=== PATIENT | male | born 1960 | race Caucasian/White ===

== ENCOUNTER 2024-09-25 07:27 | Day surgery (SDC) | payer OTHER, SELFPAY ==
[2024-09-25] MEDS: LIDOCAINE 2% JELLY 10 ML UR (08:45)
[2024-09-25 08:58] VITALS: BP 140/70; BP 158/73; PULSE 79; PULSE 80; O2SAT 98
--- NOTE | 2024-09-25 08:58 | P.URON_ITS ---
Urology Surgery Operative Note Operative Note Procedure Date: 09/25/24 Time Out Performed: yes Pre-op Diagnosis: BPH with LUTS and recurrent prostatitis Post-op Diagnosis: same as pre-op Procedures performed: 1. Cystoscopy. Anesthesia: local Primary Surgeon: Ti Mac Complications: None Estimated blood loss (mL): 0 Findings: 1. Long obstructing lateral lobes. 2. High-grade bladder damage. 3. 1 cm papillary bladder lesion on the anterior right bladder wall surface with accompanying spoke will vascular pattern. Specimens: None Drains: None Indications for Procedures: This gentleman has BPH with LUTS and recurrent prostatitis despite max meds in the form of dutasteride and Flomax. His postvoid residual is elevated near 200 cc. He now presents for cystoscopy. He has signed an informed consent Detailed description of Procedure: The patient was kept on the [place] bed and brought into the endoscopy suite. He was in the supine position. Timeout was done by all parties in the room. Genitalia were sterilely prepped and draped in the usual fashion. 2% lidocaine gel was passed per urethra. I started by passing a flexible cystoscope per urethra and into the bladder. The anterior urethra was normal. The prostatic urethra revealed bilobar obstruction. The lateral lobes were long. Panendoscopy in the bladder revealed very high-grade trabeculation with diffuse open diverticuli. On the anterior right lateral wall there was a papillary neoplasm about 1 cm in size. This did not appear as a classic TCC lesion. There was a spoke we will vascular pattern accompanying the lesion. The scope was retroflexed and no new findings were noted. The scope was then removed. Plan we will get him scheduled for cystoscopy, TURBT and TURP under general.
== END 2024-09-25 08:58 | disposition home or self-care (01) ==
PROVIDERS: PCP Family Medicine; Visit Provider Urology
PROC: (CPT 52000; principal; 2024-09-25 08:15)
DX: N40.1 Benign prostatic hyperplasia with lower urinary tract symptoms (principal); I10 Essential (primary) hypertension; E78.5 Hyperlipidemia, unspecified; Z80.42 Family history of malignant neoplasm of prostate; Z80.52 Family history of malignant neoplasm of bladder; N41.9 Inflammatory disease of prostate, unspecified; N32.89 Other specified disorders of bladder; D41.4 Neoplasm of uncertain behavior of bladder
CPT/HCPCS: 52000

== ENCOUNTER 2024-10-11 14:20 | Outpatient (OUT) | payer OTHER, SELFPAY ==
--- NOTE | 2024-10-11 14:25 | XR_ITS ---
The [address] [address] Patient Name: LANA CUELLAR MRN: [id number] date: 1960 Sex: M Assigned Patient Location: [facility] Current Patient Location: [facility] Accession/Order Number: [id number] Exam Date: 10/11/2024 15:05 Report Date: 10/11/2024 15:14 At the request of: GABRIEL FONSECA Procedure: XR chest 2V EXAM: XR chest 2V HISTORY: Preop exam COMPARISON: None. TECHNIQUE: Upright PA and lateral chest X FINDINGS: The heart is not enlarged and the vasculature is not distended. No acute infiltrate, effusion or pneumothorax is identified. The osseous structures are grossly intact. XR/XR chest 2V IMPRESSION: No acute infiltrate or evidence of cardiac decompensation. Electronically authenticated by: CALEB BABIN Date: 10/11/2024 15:14
--- NOTE | 2024-10-11 14:25 | ECG_ITS ---
[facility] Test Date: 2024-10-11 Pat Name: LANA CUELLAR Department: Room: - Gender: Male Certified Phlebotomy Technician: : 1960 Requested By: GABRIEL FONSECA Order Number: [id number] Reading MD: FREYA CORONADO Measurements Intervals Gabriels Rate: 74 P: 62 MD: 181 QRS: 58 QRSD: 81 T: 55 QT: 377 QTc: 418 Interpretive Statements SINUS RHYTHM Nonspecific ST/T wave changes No previous ECG available for comparison Electronically Signed On 10-11-2024 17:43:53 EST by FREYA CORONADO
--- NOTE | 2024-10-11 14:59 | P.GSHP_ITS ---
History of Present Illness History of Present Illness Chief complaint: Bladder tumor, BPH with Obstruction Narrative: Mr. Valdemar Prado is a 64 year old male presents to presurgical testing reports that he had some malodorous urine and pain and burning with urination had continued urinary symptoms after this. Patient was evaluated on July [address] Mac and was diagnosed with prostatitis, BPH and urinary obstruction and an elevated PSA with a family history of prostate cancer in his father. He is scheduled for cystoscopy, TURBT, TURP this procedure is scheduled with Dr. Mac on October 26, 2024. Review of Systems ROS Narrative REVIEW OF SYSTEMS: Negative except as stated in HPI, ten or more systems reviewed. Constitutional: No fever, chills, weakness ENT: No sore throat or epistaxis Cardiovascular: No edema, chest pain, palpitations, or activity intolerance Respiratory: No shortness of breath, cough, or wheezing Musculoskeletal: No joint pain or swelling Gastrointestinal: No abdominal pain, constipation, diarrhea, or vomiting Genitourinary: Reports history malodorous urine and nocturia Neurological: No numbness, tingling, weakness, or headache Psychiatric: No mood changes PFSH PFSH Medical History (Updated 10/11/24 @ 15:07 by Jojo Martinez) GERD (gastroesophageal reflux disease) ?K21.9 - Gastro-esophageal reflux disease without esophagitis (ICD-10) Elevated blood sugar ?R73.9 - Hyperglycemia, unspecified (ICD-10) Panic attack ?F41.0 - Panic disorder [episodic paroxysmal anxiety] (ICD-10) Nocturia ?R35.1 - Nocturia (ICD-10) Prostatitis ?N41.9 - Inflammatory disease of prostate, unspecified (ICD-10) Hiatal hernia ?K44.9 - Diaphragmatic hernia without obstruction or gangrene (ICD-10) Elevated PSA ?R97.20 - Elevated prostate specific antigen [PSA] (ICD-10) High cholesterol ?E78.00 - Pure hypercholesterolemia, unspecified (ICD-10) Depression ?F32.A - Depression, unspecified (ICD-10) Smoker ?F17.200 - Nicotine dependence, unspecified, uncomplicated (ICD-10) Hypertension ?I10 - Essential (primary) hypertension (ICD-10) 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 - Acosta's esophagus without dysplasia (ICD-10) Surgical History History of endoscopy ?Z98.890 - Other specified postprocedural states (ICD-10) Hx of colonoscopy ?Z98.890 - Other specified postprocedural states (ICD-10) H/O cystoscopy ?Z98.890 - Other specified postprocedural states (ICD-10) Family History (Updated 10/11/24 @ 14:58 by Jojo Martinez) Father Family history of cancer Other Bladder cancer Family history of Alzheimer's disease Family history of diabetes mellitus Family history of hypertension Prostate cancer Social History Within the past year, how often did you have a drink containing alcohol: 4 or more times a week Within the past year, how many standard drinks containing alcohol did you have on a typical day: 3 or 4 Within the past year, how often did you have six or more drinks on one occasion: never Total score: 2 Score interpretation: A score of 4 or more indicates drinking is likely to affe ct patient's safety. Smoking status: Current every day smoker Second hand tobacco smoke exposure: No Non-prescribed substance use: denies use Previous occupational history: [employer] Known occupational exposures/hazards: No Highest level of school completed/degree received: some college, no degree Meds Home Medications and Allergies Home Medications ?Medication ?Instructions ?Recorded ?Confirmed ?Type amlodipine 5 mg tablet 5 mg PO DAILY 09/21/24 10/11/24 History tamsulosin 0.4 mg capsule 0.4 mg PO BID 09/21/24 10/11/24 History Allergies Allergy/AdvReac Type Severity Reaction Status Date / Time No Known Drug Allergies Allergy Unverified 10/11/24 14:34 Exam Narrative Exam Narrative: Constitutional: Awake, alert, comfortable, well-appearing, nontoxic, interactive, vital signs as charted Head: Normocephalic, atraumatic Eyes: Conjunctiva and lids normal to inspection, pupils normal ENT: Tympanic membranes pearly hsu, nonerythematous, noninjected, naris patent, posterior oropharynx clear, oral mucosa moist Neck: Supple, normal appearance, normal range of motion, no meningeal signs, no lymphadenopathy Respiratory: No respiratory distress, breath sounds clear Cardiovascular: Regular rate and rhythm, strong and regular heart tones Abdomen: Nontender, normal bowel sounds, soft, no CVA tenderness Musculoskeletal: Normal gait, no swelling or edema Skin: No rashes or induration, no lesions, only visible skin inspected Neuro: No neurological deficits, normal sensation Psychiatric: Oriented ?3, normal affect Assessment and Plan Assessment and Plan (1) BPH with urinary obstruction: (2) Bladder tumor: Plan Mr. Valdemar Prado is scheduled for cystoscopy, TURBT and TURP with Dr. Mac on October 26, 2024
[2024-10-11 15:08] LABS: Basophils Absolute Auto 0.1 10^3/uL (0.0-0.1); Basophils Percent Auto 0.6 % (0.2-2.0); Eosinophils Absolute Auto 0.2 10^3/uL (0.0-0.7); Eosinophils Percent Auto 2.6 % (0.9-7.0); Hematocrit 42.2 % (42.0-54.0); Hemoglobin 14.5 g/dL (14.0-18.0); Immature Granulocytes Abs Auto 0.04 10^3/uL (0.00-0.03); Immature Granulocytes Pct Auto 0.5 % (0.0-0.5); Lymphocytes Absolute Auto 1.8 10^3/uL (1.2-3.8); Lymphocytes Percent Auto 22.1 % (20.5-60.0); Mean Corpuscular HGB Conc 34.4 g/dL (29.9-35.2); Mean Corpuscular Hemoglobin 31.9 pg (25.9-34.0); Mean Corpuscular Volume 92.7 fL (80.0-94.0); Mean Platelet Volume 10.7 fL (9.5-13.5); Monocytes Absolute Auto 0.7 10^3/uL (0.3-0.8); Monocytes Percent Auto 8.8 % (1.7-12.0); Neutrophils Absolute Auto 5.4 10^3/uL (1.4-6.5); Neutrophils Percent Auto 65.4 % (43.0-75.0); Platelet Count 212 10^3/uL (150-450); Red Blood Count 4.55 10^6/uL (4.70-6.10); Red Cell Distribution Width 12.2 % (11.0-15.0); White Blood Count 8.2 10^3/uL (4.0-11.0)
[2024-10-11 15:24] LABS: INR 1.07; Prothrombin Time 11.3 sec (9.0-11.6)
[2024-10-11 15:42] LABS: Anion Gap 12.4; BUN Creatinine Ratio 13.6; Calcium 8.9 mg/dL (8.5-10.1); Carbon Dioxide 28.8 mmol/L (21.0-32.0); Chloride 105 mmol/L (98-107); Estimated GFR (African America >60 (>=60 mL/min/1.73m^2); Estimated GFR (Non-African Ame >60 (>=60 mL/min/1.73m^2); Glucose 92 mg/dL (74-106); Potassium 4.2 mmol/L (3.5-5.1); Sodium 142 mmol/L (136-145)
== END 2024-10-11 14:21 | disposition home or self-care (01) ==
LOC: PST 14:21
PROVIDERS: PCP Family Medicine; Visit Provider Urology
DX: Z01.810 Encounter for preprocedural cardiovascular examination (principal); Z01.812 Encounter for preprocedural laboratory examination; Z01.818 Encounter for other preprocedural examination; N40.1 Benign prostatic hyperplasia with lower urinary tract symptoms
CPT/HCPCS: 71046; 80048; 85025; 85610; 85730; 93005; G0463

== ENCOUNTER 2024-10-26 10:52 | Day surgery (SDC) | payer OTHER, SELFPAY ==
[2024-10-11 14:36] VITALS: PULSE 80; TEMP 36.3; O2SAT 98; BMI 25.0
[2024-10-26] VITALS (13 sets, daily range): BP systolic 116–158; BP diastolic 65–94; PULSE 68–93; TEMP 36.4–36.8; O2SAT 92–97; BMI 25.2
--- OUTSIDE RECORDS SUMMARY | 2024-10-26 10:57 | XMS_ITS | CCD ---
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 Role Phone DR TI MAC Attending Unavailable MARIAN, DR RIOS Consulting Unavailable MARIAN, DR RIOS Admitting Unavailable HILTON, DR KAYLIN Cash Primary Care Unavailable Nehemiah Moffett Primary Care Physician [phone] Ti MAC Attending Unavailable Nehemiah Moffett Attending Unavailable Nehemiah Moffett Attending Unavailable Nehemiah Moffett Attending Unavailable Nehemiah Moffett Attending Unavailable Nehemiah Moffett Attending Unavailable Ti MAC Attending Unavailable Ti MAC Attending Unavailable MARIAN, Ti Valle Attending Unavailable Ti MAC Attending Unavailable Ti MAC Attending Unavailable Nehemiah Moffett Admitting Unavailable Nehemiah Moffett Attending Unavailable Ti MAC Attending Unavailable Medications Current Medications Medication Drug Class(es) Dates Sig (Normalized) Sig (Original) amLODIPine 5 mg oral tablet (5 sources) Dihydropyridine Calcium Channel Abhijeet Start: 06-12-2024 take 1 tablet by mouth once daily amLODIPine 5 mg Tab See Instructions, TAKE 1 TABLET BY MOUTH EVERY DAY, # 90 tab(s), Refills(s) 2, Pharmacy: [id number], 177, cm, 01/17/24 17:03:00 EDT, Height/Length Dosing, 81.1, kg, 01/17/24 17:03:00 EDT, Weight Dosing Start Date: 06/12/24 Status: Ordered Start: 12-13-2023 take 1 tablet by liya th once daily amLODIPine 5 mg Tab 5 mg = 1 tab(s), Oral, Daily, # 90 tab(s), Refills(s) 1, Pharmacy: [facility]/pharmacy #[id number], 177, cm, 12/13/23 17:30:00 EDT, Height/Length Dosing, 81.6, kg, 12/13/23 17:30:00 EDT, Weight Dosing Start Date: 12/13/23 Status: Ordered Start: 03-15-2023 amLODIPine 5 m g Tab Refills(s) 0 Start Date: 03/15/23 Status: Ordered doxycycline hyclate 100 mg oral capsule (2 sources) Tetracycline-class Drug Start: 07-03-2024 End: 07-31-2024 take 1 capsule by mouth twice daily doxycycline hyclate 100 mg Cap 100 mg = 1 cap(s), Oral, BID, X 4 week(s), # 56 cap(s), Refills(s) 0, Pharmacy: [facility]/pharmacy #[id number], 177, cm, 07/03/24 15:37:00 EDT, Height/Length Dosing, 80, kg, 07/03/24 15:37:00 EDT, Weight Dosing Start Date: 07/03/24 Stop Date: 07/31/24 Status: Ordered Start: 03-15-2023 End: 04-05-2023 take 1 capsule by mouth twice daily doxycycline hyclate 100 mg Cap 100 mg = 1 cap(s), Oral, BID, Wear sun protection and take probiotics during the duration of this course., X 21 day(s), # 42 cap(s), Refills(s) 0, Pharmacy: [facility]/pharmacy #[id number], 177, cm, 03/15/23 15:25:00 EDT, Height/Length Dosing, 82, kg, 03/15/23 15:... Start Date: 03/15/23 Stop Date: 04/05/23 Status: Ordered dutasteride 0.5 mg oral capsule (2 sources) 5-alpha Reductase Inhibitor Start: 12-24-2023 take 1 capsule by mouth once daily dutasteride 0.5 mg Cap 0.5 mg = 1 cap(s), Oral, Daily, # 30 cap(s), Refills(s) 11, Pharmacy: [facility]/pharmacy #[id number], 177, cm, 12/24/23 12:01:00 EDT, Height/Length Dosing, 80, kg, 12/24/23 12:01:00 EDT, Weight Dosing Start Date: 12/24/23 Status: Ordered tamsulosin hydrochloride 0.4 mg oral capsule (5 sources) alpha-Adrenergic Abhijeet Start: 07-03-2024 End: 06-28-2025 take 1 capsule by mouth twice daily tamsulosin 0.4 mg Cap 0.4 mg = 1 cap(s), Oral, BID, X 30 day(s), # 60 cap(s), Refills(s) 11, [id number] 177, cm, 07/03/24 15:37:00 EDT, Height/Length Dosing, 80, kg, 07/03/24 15:37:00 EDT, Weight Dosing Start Date: 07/03/24 Stop Date: 06/28/25 Status: Ordered Start: 03-15-2023 End: 03-09-2024 take 1 capsule by mouth twice daily Flomax 0.4 mg Cap 0.4 mg = 1 cap(s), Oral, BID, X 90 day(s), # 180 cap(s), Refills(s) 3, [id number] 177, cm, 03/15/23 15:25:00 EDT, Height/Length Dosing, 82, kg, 03/15/23 15:25:00 EDT, Weight Dosing Start Date: 03/15/23 Stop Date: 03/09/24 Status: Ordered Problems Problem Classification Problem Date Documented Date Episodic/Chronic Abdominal hernia (5 sources) Hiatal hernia 06-12-2019 Episodic Anxiety disorders (5 sources) Panic attack 06-12-2019 Chronic Diabetes mellitus without complication (1 source) Hyperglycemia 01-17-2024 Episodic Disorders of lipid metabolism (5 sources) Hypercholesterolemia 06-12-2019 Chronic Esophageal disorders (5 sources) Acosta's esophagus 06-12-2019 Chronic Essential hypertension (5 sources) Hypertensive disorder 06-12-2019 Chronic Genitourinary symptoms and ill-defined conditions (6 sources) Nocturia; Translations: [Nocturia] Onset: 2 12-02-2020 Episodic Hyperplasia of prostate (13 sources) Benign prostatic hyperplasia with lower urinary tract symptoms; Translations: [Benign prostatic hypertrophy with outflow obstruction] Onset: 2 Chronic Inflammatory conditions of male genital organs (8 sources) Prostatitis; Translations: [Inflammatory disease of prostate, unspecified] Onset: 3 Episodic Mood disorders (5 sources) Depressive disorder 06-12-2019 Chronic Other male genital disorders (1 source) H/O: male genital disorder; Translations: [Personal history of other diseases of male genital organs] Onset: 4 Episodic Other male genital disorders (2 sources) History of prostatitis 12-24-2023 Episodic Other screening for suspected conditions (not mental disorders or infectious disease) (10 sources) Elevated prostate specific antigen [PSA]; Translations: [Raised prostate specific antigen] Onset: 2 Episodic Residual codes; unclassified (1 source) Family history of malignant neoplasm of prostate; Translations: [FAMILY HX MALIG NEOPLASM PROSTATE] Onset: 2 Episodic Residual codes; unclassified (4 sources) Family history of cancer; Translations: [Family history of malignant neoplasm of prostate] Onset: 3 Episodic Residual codes; unclassified (5 sources) Family history of prostate cancer 03-15-2023 Episodic Substance-related disorders (8 sources) Smoker; Translations: [Nicotine dependence] 06-12-2019 Chronic Unclassified (6 sources) Patient encounter status 12-13-2023 Results Test Name Value Interpretation Reference Range Facility Ambulatory Visit Summaryon 1 Ambulatory Visit Summary Ambulatory Visit Summary VALDEMAR CUELLAR :1960 Visit Date:07/17/2024 Ambulatory Visit Instructions Your Diagnosis HTN (hypertension) Elevated cholesterol BMI 25.0-25.9,adult Overweight Smoker Your Care Team Attending Physician - Nehemiah Moffett MD Primary Care Physician - Nehemiah Moffett MD This Is Your Medications List amlodipine (amLODIPine 5 mg Tab) doxycycline (doxycycline hyclate 100 mg Cap) dutasteride (dutasteride 0.5 mg Cap) tamsulosin (tamsulosin 0.4 mg Cap) Procedures Performed Cystoscopy (09/20/2003), Colonoscopy. Discharge Vitals Temperature (Temporal Artery) 37.2 ???C Heart Rate (Peripheral) 72 Respiratory Rate 16 Blood Pressure 126/78 Height 177 cm Height 70 in Weight 79.4 kg Weight 174.68 lb BMI 25.34 What to do next Scheduled Follow-Up Appointments Wednesday 5:45 PM EDT With: Nehemiah Moffett MD Where: [place] [id number]- Medications What How Much When Instructions Unchanged amlodipine (amLODIPine 5 mg Tab) See instructions TAKE 1 TABLET BY MOUTH EVERY DAY Unchanged doxycycline (doxycycline hyclate 100 mg Cap) 1 Capsules By Mouth 2 times a day Duration: 4 Weeks Unchanged dutasteride (dutasteride 0.5 mg Cap) 1 Capsules By Mouth Every day Unchanged tamsulosin (tamsulosin 0.4 mg Cap) 1 Capsules By Mouth 2 times a day Duration: 30 Days Allergies No Known Allergies Problems Ongoing - Any problem that you are currently receiving treatment for. Acosta's esophagus BPH with urinary obstruction Cigarette nicotine dependence Depression Elevated cholesterol Elevated PSA Family history of prostate cancer in father Hiatal hernia History of prostatitis HTN (hypertension) Nocturia Panic attack Physical exam Prostate cancer screening Prostatitis Smoker Patient Survey You may receive a survey via text or e-mail asking about your office visit. Please share your experience with us by completing your survey. We appreciate your feedback and thank you for choosing us for your care. Normal [facility] Family Medicine Office/Clini c Noteon 07-17-2024 Family Medicine Office/Clinic Note Family Medicine Office/Clinic Note HPI Staff Valdemar is a 64 year old male presenting for 6 month follow up htn Patient is here for follow up on hypertension. How often are you checking your blood pressure? occasionally if feels jittery or off What are your average readings? normal at home Yearly BMP: 12/17/23 questions/concerns: none History of Present Illness Here for 6-month follow-up. Patient needs recheck on blood pressure. Having pain in his left thumb. No other concerns. Review of Systems PHQ Score Initial Depression Screen Score: 0 SCORE Physical Exam Vitals & Measurements T: 37.2 ???C(Temporal Artery) HR: 72(Peripheral) RR: 16 BP: 126/78 SpO2: 97% HT: 70 in HT: 177 cm WT: 79.4 kg WT: 174.68 lb BMI: 25.34 General: alert, no acute distress ENMT: oral mucosa moist, Cardiovascular: regular rate and rhythm, normal peripheral perfusion Respiratory: Lungs CTA, respirations non labored Extremities: no deformity, no trauma Neurological: oriented x 4, LOC appropriate for age, CN II-XII intact, motor strength equal & normal bilaterally, speech normal Abdomen: Soft, Nontender, Non-distended, + BS Assessment/Plan 1. HTN (hypertension) (I10: Essential (primary) hypertension) At goal at this time. Will continue medication as before. Will do lab work in 6 months. 2. Elevated cholesterol (E78.00: Pure hypercholesterolemia, unspecified) Will recheck cholesterol at next visit. 3. Tenosynovitis of wrist (M65.939: Unspecified synovitis and tenosynovitis, unspecified forearm) Patient is not interested in seeing Ortho for injections. He will try RICE. If no improvement he will get a referral to Ortho. 4. BMI 25.0-25.9,adult (Z68.25: Body mass index [BMI] 25.0-25.9, adult) BMI education given 5. Overweight (E66.3: Overweight) Diet and exercise advised 6. Smoker (F17.200: Nicotine dependence, unspecified, uncomplicated) Encouraged the patient to stop smoking. Orders: amlodipine, See Instructions, TAKE 1 TABLET BY MOUTH EVERY DAY, # 90 tab(s), Refills(s) 2, Pharmacy: [facility]/pharmacy #[id number], 177, cm, 07/17/24 17:45:00 EDT, Height/Length Dosing, 79.4, kg, 07/17/24 17:45:00 EDT, Weight Dosing Follow-up No qualifying data available Patient Education BMI for Adults Problem List/Past Medical History Ongoing Acosta's esophagus BPH with urinary obstruction Cigarette nicotine dependence Depression Elevated cholesterol Elevated PSA Family history of prostate cancer in father Hiatal hernia History of prostatitis HTN (hypertension) Nocturia Panic attack Physical exam Prostate cancer screening Prostatitis Smoker Historical No qualifying data Procedure/Surgical History Cystoscopy (09/20/2003), Colonoscopy. Medications amLODIPine 5 mg Tab, See Instructions, 2 refills doxycycline hyclate 100 mg Cap, 100 mg= 1 cap(s), Oral, BID dutasteride 0.5 mg Cap, 0.5 mg= 1 cap(s), Oral, Daily, 11 refills tamsulosin 0.4 mg Cap, 0.4 mg= 1 cap(s), Oral, BID, 11 refills Allergies No Known Allergies Social History Alcohol Current. Beer. 3-5 times per week., 07/17/2024 Substance Abuse Never., 07/17/2024 Tobacco 5-9 cigarettes (between 1/4 to 1/2 pack)/day in last 30 days Tobacco Use:., 07/17/2024 Family History Bladder cancer: Father. Diabetes: Mother. Hypertension: Mother and Father. Primary malignant neoplasm of prostate: Father. Immunizations Vaccine Date Status Comments SARS-CoV-2 (COVID-19) Ad26 vaccine 08/15/2021 Recorded 2023-03-15: TPV60 SARS-CoV-2 (COVID-19) Ad26 vaccine 02/15/2021 Recorded 2023-03-15: TPV60 influenza virus vaccine, inactivated - Not Given Patient Refuses SARS-CoV-2 (COVID-19) Ad26 vaccine 2020 Recorded Normal [facility] Comment on above: Result Comment: Elec tronically Signed By: Nehmeiah Moffett MD\.br\Date and Time Signed: 07/17/24 17:59 EDT Ambulatory Visit Summaryon 1 Ambulatory Visit Summary Ambulatory Visit Summary VALDEMAR CUELLAR :1960 Visit Date:07/03/2024 Ambulatory Visit Instructions Your Diagnosis Prostatitis BPH with urinary obstruction Elevated PSA Family history of prostate cancer in father Your Care Team Attending Physician - Ti MAC MD Primary Care Physician - Nehemiah Moffett MD This Is Your Medications List doxycycline (doxycycline hyclate 100 mg Cap) dutasteride (dutasteride 0.5 mg Cap) tamsulosin (tamsulosin 0.4 mg Cap) Contact prescribing physician if questions or concerns amlodipine (amLODIPine 5 mg Tab) Procedures Performed Cystoscopy (09/20/2003), Colonoscopy. Discharge Vitals Heart Rate (Peripheral) 68 Blood Pressure 136/82 Height 177 cm Height 70 in Weight 80 kg Weight 176 lb BMI 25.54 What to do next Scheduled Follow-Up Appointments Wednesday 5:45 PM EDT With: Nehemiah Moffett MD Where: [facility] [address] [address]- You Need to Schedule the Following Appointments Follow Up with Ti MAC MD, URL When: Where: [facility] [address] [place] [address] [phone] Medications What How Much When Instructions New doxycycline (doxycycline hyclate 100 mg Cap) 1 Capsules By Mouth 2 times a day Duration: 4 Weeks Pickup at [facility]/pharmacy #[id number] Changed tamsulosin (tamsulosin 0.4 mg Cap) 1 Capsules By Mouth 2 times a day Duration: 30 Days Pickup at [facility]/pharmacy #[id number] Unchanged dutasteride (dutasteride 0.5 mg Cap) 1 Capsules By Mouth Every day Unchanged amlodipine (amLODIPine 5 mg Tab) See instructions TAKE 1 TABLET BY MOUTH EVERY DAY Contact prescribing physician if questions or concerns [id number] [address], [place] [phone] Allergies No Known Allergies Problems Ongoing - Any problem that you are currently receiving treatment for. Acosta's esophagus BPH with urinary obstruction Cigarette nicotine dependence Depression Elevated blood sugar Elevated cholesterol Elevated PSA Family history of prostate cancer in father Hiatal hernia History of prostatitis HTN (hypertension) Nocturia Panic attack Physical exam Prostate cancer screening Prostatitis Smoker Patient Survey You may receive a survey via text or e-mail asking about your office visit. Please share your experience with us by completing your survey. We appreciate your feedback and thank you for choosing us for your care. Education Materials Prostatitis Prostatitis is swelling or inflammation of the prostate gland, also called the prostate. This gland is about 1.5 inches wide and 1 inch high, and it is involved in making semen. The prostate is located below a man's bladder, in front of the rectum. There are four types of prostatitis: ? Chronic prostatitis (CP), also called chronic pelvic pain syndrome (CPPS). This is the most common type of prostatitis. It is associated with increased muscle tone in the area between the hip bones (pelvic area), around the prostate. This type is also known as a pelvic floor disorder. ? Chronic bacterial prostatitis. This type usually results from an acute bacterial infection in the prostate gland that keeps coming back or has not been treated properly. The symptoms are less severe than those caused by acute bacterial prostatitis, which lasts a shorter time. ? Asymptomatic inflammatory prostatitis. This type does not have symptoms and does not need treatment. This is diagnosed when tests are done for other disorders of the urinary tract or reproductive tract. ? Acute bacterial prostatitis. This type starts quickly and results from an acute bacterial infection in the prostate gland. It is usually associated with a bladder infection, high fever, and chills. This is the least common type of prostatitis. What are the causes? Bacterial prostatitis is caused by an infection from bacteria. Chronic nonbacterial prostatitis may be caused by: ? Factors related to the nervous system. This system includes thebrain, spinal cord, and nerves. ? An autoimmune response. This happens when the body's disease-fighting system attacks healthy tissue in the body by mistake. ? Psychological factors. These have to do with how the mind works. The causes of the other types of prostatitis are usually not known. What are the signs or symptoms? Symptoms of this condition depend on the type of prostatitis you have. Acute bacterial prostatitis Symptoms may include: ? Pain or burning during urination. ? Frequent and sudden urges to urinate. ? Trouble starting to urinate. ? Fever. ? Chills. ? Pain in your muscles or joints, lower back, or lower abdomen. Other types of prostatitis Symptoms may include: ? Sudden urges to urinate, or urinating often. ? Troubl (more content not included)... Normal [facility] Urology Office/Clinic Noteon 07-03-2024 Urology Office/Clinic Note Urology Office/Clinic Note Chief Complaint 6 mth f/u HPI Staff 64 yr old male here today for 6m w/ PSA DX: Elevated PSA, Prostatitis, BPH & Fam Hx of Prostate & Bladder Cancer (father) *Tamsulosin 0.4mg BID PSA 12/17/23- 1.82 pt states he was told he did not have to get PSA done prior to this appointment Dysuria: yes Incomplete bladder emptying: unsure Hematuria:no Frequency: q2-3 hrs Urgency:yes Nocturia: 2x Stream: normal Leaking: occasionally Post void dripping: occasionally Wearing pads/ Depends: no Urge incontinence: no Stress incontinence: no Incontinence without Sensory Awareness: no Abdominal pain: no Flank pain: no Sexual complaints: History of Present Illness Tests reviewed: reviewed UA I have reviewed the previous health record information and history for this patient from Dr. Mac. I have reviewed and verified the staff HPI to be accurate for this encounter. Review of Systems PHQ Score Initial Depression Screen Score: 0 SCORE ROS - Provider Constitutional: denies weight loss, denies hot flashes. Eyes: denies eye problems. Gastrointestinal: denies nausea, denies vomiting. Cardiovascular: denies chest pain or angina. Integumentary: no dryness Musculoskeletal: denies musculoskeletal symptoms. ENMT: denies otolaryngeal symptoms. Respiratory: no shortness of breath. Heme/Lymph: denies easy bleeding tendency, denies easy bruising tendency. Psychiatric: no confusion, no anxiety. Genitourinary: See HPI. Physical Exam Vitals & Measurements HR: 68(Peripheral) BP: 136/82 HT: 70 in HT: 177 cm WT: 80 kg WT: 176 lb BMI: 25.54 General Appearance: alert, no distress, well nourished, well developed male. Assessment/Plan 1. Prostatitis (N41.9: Inflammatory disease of prostate, unspecified) Hx of being tx'd with Doxycycline. Reports odorous urine. Has had some pain/burning with urination. Was on amoxicillin [id number] for skin abscess, finished this last Wednesday. Noticed urinary sxs started after this. UA today negative for blood and infection. The patient likely has prostatitis. He was advised about the different possible causes of bacterial and non-bacterial prostatitis. He needs to complete the course of prescribed antibiotics. He understands that the symptoms improve if he decreases his exercise and activity level. Anti-inflammatory medicines can also be helpful, as well as frequent ejaculations. Hot baths are also helpful in easing the discomfort. -Take Doxycycline 100mg 100 mg bid x1 month. SEs discussed. Take probiotic daily. Rx sent to [facility]. 2. BPH with urinary obstruction (N40.1: Benign prostatic hyperplasia with lower urinary tract symptoms) Taking Flomax 0.4mg bid. Started on Dutasteride 0.5mg qd at prior OV. Denies SEs. PVR today 196 mL. Advised pt he is not emptying well likely secondary to current prostatitis. Also discussed possible need for CRAWFORD procedures given repeat infection. Advised pt a cystoscopy will need done first to evaluate prostate and bladder to determine candidacy for future operative intervention. -Cont Flomax. Refills sent to [facility]. Cont Dutasteride. Call for refills. -Will schedule cystoscopy. The risks and benefits for cystoscopy have been discussed. The risks include bleeding, infection, and irritation of the bladder and urinary channel, among others. The patient, after being informed of procedural details and after questions have been answered, wishes to proceed. Full informed consent has been obtained. Will order Local anesthesia. 3. Elevated PSA (R97.20: Elevated prostate specific antigen [PSA]) PSA: 05/27/19 - 2.01 11/24/19 - 1.89 06/15/20 - 2.14 11/22/20 - 2.46 11/29/21 - 1.43 03/09/23 - 3.05 (had infection at that time) 05/27/23 - 2.08 12/17/23 - 1.82[1] Did not have PSA level done for appt today. Recalls he was advised at prior OV that level did not need repeated given stability. 4. Family history of prostate cancer in father (Z80.42: Family history of malignant neoplasm of prostate) Father. Also had bladder cancer. [2] Follow-up With When Contact Information MARIAN GLAESON, Ti Valle, URL [facility] [address] [facility] [place] [address]- [phone] Additional Instructions: sched cysto Patient Education Prostatitis Cystoscopy Benign Prostatic Hyperplasia I, Stefanie Amador, personally scribed for Dr. Mac on 07/03/2024 16:16:08. . Documentation recorded by the connieibStefanie cash, accurately reflects the services(s) I performed and decisions made by me. Authenticated by Dr. Mac on 07/03/2024 16:17:54. Problem List/Past Medical History Ongoing Acosta's esophagus BPH with urinary obstruction Cigarette nicotine dependence Depression Elevated blood sugar Elevated cholesterol Elevated PSA Family history of prostate cancer in father Hiatal hernia History of prostatitis HTN (hypertension) Nocturia Panic at (more content not included)... Normal [facility] Comment on above: Result Comment: Elec tronically Signed By: Ti MAC MD\.br\Date and Time Signed: 07/03/24 16:18 EDT\.br\Electronically Co-Signed By: Stefanie Amador\.br\Date and Time Co-Signed: 07/03/24 16:16 EDT Provider Letteron 01-24-2024 Provider Letter January 24, 2024 VALDEMAR CUELLAR [address] [place] [address] : 1960 Dear Valdemar , We have been trying to reach you with no success. It is important that you return our call regarding your consultation appointment at our office per the referral received by Ramirez upon receiving this letter. Also, at the time of your call, please provide us with your current information. Thank you for your prompt attention to this matter. Sincerely, [facility] [phone] Normal [facility] Insurance Correspondenceon 0 2024 Insurance Correspondence [id number] .[email or web address] Normal [facility] Ambulatory Visit Summaryon 0 01-17-2024 Ambulatory Visit Summary POLOVALDEMAR :1960 Visit Date:01/17/2024 Ambulatory Visit Instructions Your Diagnosis Physical exam Prostate cancer screening Cigarette nicotine dependence BMI 25.0-25.9,adult Overweight Smoker Elevated blood sugar Colon cancer screening Your Care Team Attending Physician - Nehemiah Moffett MD Primary Care Physician - Nehemiah Moffett MD This Is Your Medications List Contact prescribing physician if questions or concerns amlodipine (amLODIPine 5 mg Tab) dutasteride (dutasteride 0.5 mg Cap) tamsulosin (Flomax 0.4 mg Cap) Procedures Performed Cystoscopy (09/20/2003), Colonoscopy. Discharge Vitals Temperature (Oral) 36.7 ?C Heart Rate (Peripheral) 78 Respiratory Rate 16 Blood Pressure 120/72 Height 177 cm Height 70 in Weight 81.1 kg Weight 178.42 lb BMI 25.89 What to do next Scheduled Follow-Up Appointments Wednesday 3:00 PM EDT With: Ti MAC MD Where: [facility] Invalid Interpretation Code [address] [place] [address]- \.br\ You Need to Complete the Following\.br \ CT Chest, Low Dose Screening, 01/17/24, Routine, Order for future visit, Transport Mode: Ambulatory, Reason: Screening, Yes, Yes, Yes, 1, 40, Yes, 0, [id number], No, Cigarette nicotine dependence [facility] Family Medicine Office/Clini c Noteon 01-17-2024 Family Medicine Office/Clinic Note HPI Staff Valdemar is a 63 year old male presenting for full PE Health Maintenance: Colonoscopy: due PSA: 1.82 12/17/23 Last Labs: November 2023 questions/concerns: had labs and told sugar high but he didn't know he was supposed to fast and did not fast. He said he was called to schedule another blood test in 3 mos due to elevated sugar but he had peanut butter eggs the night before ( note in documentation) History of Present Illness - Here for CPE - Reviewed labs - A1c today - Needs screenings Review of Systems PHQ Score Initial Depression Screen Score: 0 SCORE Physical Exam Vitals & Measurements T: 36.7 ?C(Oral) HR: 78(Peripheral) RR: 16 BP: 120/72 SpO2: 98% HT: 70 in HT: 177 cm WT: 81.1 kg WT: 178.42 lb BMI: 25.89 General: alert, no acute distress ENMT: oral mucosa moist, Cardiovascular: regular rate and rhythm, normal peripheral perfusion Respiratory: Lungs CTA, respirations non labored Extremities: no deformity, no trauma Neurological: oriented x 4, LOC appropriate for age, CN II-XII intact, motor strength equal & normal bilaterally, speech normal Abdomen: Soft, Nontender, Non-distended, + BS Assessment/Plan 1. Physical exam (Z00.00: Encounter for general adult medical examination without abnormal findings) Anticipatory guidance given. Discussed diet and exercise. Discussed immunizations. 2. Prostate cancer screening (Z12.5: Encounter for screening for malignant neoplasm of prostate) - Normal. 3. Cigarette nicotine dependence (F17.210: Nicotine dependence, cigarettes, uncomplicated) - LDCT and AAA Ordered: CT Chest, Low Dose Screening US Abdominal Aorta screening for AAA 4. BMI 25.0-25.9,adult (Z68.25: Body mass index [BMI] 25.0-25.9, adult) - BMI education given 5. Overweight (E66.3: Overweight) - Diet and exercise advised 6. Smoker (F17.200: Nicotine dependence, unspecified, uncomplicated) - Will send for AAA screen and LDCT. Ordered: CT Chest, Low Dose Screening US Abdominal Aorta screening for AAA 7. Elevated blood sugar (R73.9: Hyperglycemia, unspecified) - A1c today 8. Colon cancer screening (Z12.11: Encounter for screening for malignant neoplasm of colon) - Colonoscopy Ordered: [facility] [place] Internal Ambulatory Referral Follow-up No qualifying data available Patient Education BMI for Adults Problem List/Past Medical History Ongoing Acosta's esophagus BPH with urinary obstruction Cigarette nicotine dependence Depression Elevated blood sugar Elevated cholesterol Elevated PSA Family history of prostate cancer in father Hiatal hernia History of prostatitis HTN (hypertension) Nocturia Panic attack Physical exam Prostate cancer screening Prostatitis Smoker Historical No qualifying data Procedure/Surgical History Cystoscopy (09/20/2003), Colonoscopy. Medications amLODIPine 5 mg Tab, 5 mg= 1 tab(s), Oral, Daily, 1 refills dutasteride 0.5 mg Cap, 0.5 mg= 1 cap(s), Oral, Daily, 11 refills Flomax 0.4 mg Cap, 0.4 mg= 1 cap(s), Oral, BID, 3 refills Allergies No Known Allergies Social History Tobacco 5-9 cigarettes (between 1/4 to 1/2 pack)/day in last 30 days Tobacco Use:. Never Smokeless Tobacco Use:. Cigarettes, Household tobacco concerns: No. Yes, 01/17/2024 Family History Bladder cancer: Father. Diabetes: Mother. Hypertension: Mother and Father. Primary malignant neoplasm of prostate: Father. Immunizations Vaccine Date Status Comments SARS-CoV-2 (COVID-19) Ad26 vaccine 08/15/2021 Recorded 2023-03-15: TPV60 SARS-CoV-2 (COVID-19) Ad26 vaccine 02/15/2021 Recorded 2023-03-15: TPV60 influenza virus vaccine, inactivated - Not Given Patient Refuses SARS-CoV-2 (COVID-19) Ad26 vaccine 2020 Recorded Normal [facility] Comment on above: Result Comment: Elec tronically Signed By: Zuhair GLEASON, Nehemiah Gamez\.br\Date and Time Signed: 01/17/24 17:27 EDT Patient Educationon 01-17-20 24 Patient Education Nutrition BMI for Adults What is BMI? Body mass index (BMI) is a number that is calculated from a person's weight and height. BMI can help estimate how much of a person's weight is composed of fat. BMI does not measure body fat directly. Rather, it is an alternative to procedures that directly measure body fat, which can be difficult and expensive. BMI can help identify people who may be at higher risk for certain medical problems. What are BMI measurements used for? BMI is used as a screening tool to identify possible weight problems. It helps determine whether a person is obese, overweight, a healthy weight, or underweight. BMI is useful for: ? Identifying a weight problem that may be related to a medical condition or may increase the risk for medical problems. ? Promoting changes, such as changes in diet and exercise, to help reach a healthy weight. BMI screening can be repeated to see if these changes are working. How is BMI calculated? BMI involves measuring your weight in relation to your height. Both height and weight are measured, and the BMI is calculated from those numbers. This can be done either in [place] or metric measurements. Note that charts and online BMI calculators are available to help you find your BMI quickly and easily without having to do these calculations yourself. To calculate your BMI in [place] measurements: 1. Measure your weight in pounds (lb). 2. Multiply the number of pounds by 703. ? For example, for a person who weighs 180 lb, multiply that number by 703, which equals 126,540. 3. Measure your height in inches. Then multiply that number by itself to get a measurement called inches squared. ? For example, for a person who is 70 inches tall, the inches squared measurement is 70 inches x 70 inches, which equals 4,900 inches squared. 4. Divide the total from step 2 (number of lb x 703) by the total from step 3 (inches squared): 126,540 ? 4,900 = 25.8. This is your BMI. To calculate your BMI in metric measurements: 1. Measure your weight in kilograms (kg). 2. Measure your height in meters (m). Then multiply that number by itself to get a measurement called meters squared. ? For example, for a person who is 1.75 m tall, the meters squared measurement is 1.75 m x 1.75 m, which is equal to 3.1 meters squared. 3. Divide the number of kilograms (your weight) by the meters squared number. In this example: 70 ? 3.1 = 22.6. This is your BMI. What do the results mean? BMI charts are used to identify whether you are underweight, normal weight, overweight, or obese. The following guidelines will be used: ? Underweight: BMI less than 18.5. ? Normal weight: BMI between 18.5 and 24.9. ? Overweight: BMI between 25 and 29.9. ? Obese: BMI of 30 or above. Keep these notes in mind: ? Weight includes both fat and muscle, so someone with a muscular build, such as an athlete, may have a BMI that is higher than 24.9. In cases like these, BMI is not an accurate measure of body fat. ? To determine if excess body fat is the cause of a BMI of 25 or higher, further assessments may need to be done by a health care provider. ? BMI is usually interpreted in the same way for men and women. Where to find more information For more information about BMI, including tools to quickly calculate your BMI, go to these websites: ? Centers for Disease Control and Prevention: www.cdc.gov ? [place] [employer] Association: www.heart.org ? National Heart, Lung, and Blood [place]: www.nhlbi.nih.gov Summary ? Body mass index (BMI) is a number that is calculated from a person's weight and height. ? BMI may help estimate how much of a person's weight is composed of fat. BMI can help identify those who may be at higher risk for certain medical problems. ? BMI can be measured using [place] measurements or metric measurements. ? BMI charts are used to identify whether you are underweight, normal weight, overweight, or obese. This information is not intended to replace advice given to you by your health care provider. Make sure you discuss any questions you have with your health care provider. Document Revised: 05/29/2020 Document Reviewed: 04/05/2020 [employer] Patient Education ? 2022 [employer]. [facility] Patient Educationon 12-24-19 Patient Education Urology Benign Prostatic Hyperplasia Benign prostatic hyperplasia (BPH) is an enlarged prostate gland that is caused by the normal aging process. The prostate may get bigger as a man gets older. The condition is not caused by cancer. The prostate is a walnut-sized gland that is involved in the production of semen. It is located in front of the rectum and below the bladder. The bladder stores urine. The urethra carries stored urine out of the body. An enlarged prostate can press on the urethra. This can make it harder to pass urine. The buildup of urine in the bladder can cause infection. Back pressure and infection may progress to bladder damage and kidney (renal) failure. What are the causes? This condition is part of the normal aging process. However, not all men develop problems from this condition. If the prostate enlarges away from the urethra, urine flow will not be blocked. If it enlarges toward the urethra and compresses it, there will be problems passing urine. What increases the risk? This condition is more likely to develop in men older than 50 years. What are the signs or symptoms? Symptoms of this condition include: ? Getting up often during the night to urinate. ? Needing to urinate frequently during the day. ? Difficulty starting urine flow. ? Decrease in size and strength of your urine stream. ? Leaking (dribbling) after urinating. ? Inability to pass urine. This needs immediate treatment. ? Inability to completely empty your bladder. ? Pain when you pass urine. This is more common if there is also an infection. ? Urinary tract infection (UTI). How is this diagnosed? This condition is diagnosed based on your medical history, a physical exam, and your symptoms. Tests will also be done, such as: ? A post-void bladder scan. This measures any amount of urine that may remain in your bladder after you finish urinating. ? A digital rectal exam. In a rectal exam, your health care provider checks your prostate by putting a lubricated, gloved finger into your rectum to feel the back of your prostate gland. This exam detects the size of your gland and any abnormal lumps or growths. ? An exam of your urine (urinalysis). ? A prostate specific antigen (PSA) screening. This is a blood test used to screen for prostate cancer. ? An ultrasound. This test uses sound waves to electronically produce a picture of your prostate gland. Your health care provider may refer you to a specialist in kidney and prostate diseases (urologist). How is this treated? Once symptoms begin, your health care provider will monitor your condition (active surveillance or watchful waiting). Treatment for this condition will depend on the severity of your condition. Treatment may include: ? Observation and yearly exams. This may be the only treatment needed if your condition and symptoms are mild. ? Medicines to relieve your symptoms, including: ? Medicines to shrink the prostate. ? Medicines to relax the muscle of the prostate. ? Surgery in severe cases. Surgery may include: ? Prostatectomy. In this procedure, the prostate tissue is removed completely through an open incision or with a laparoscope or robotics. ? Transurethral resection of the prostate (TURP). In this procedure, a tool is inserted through the opening at the tip of the penis (urethra). It is used to cut away tissue of the inner core of the prostate. The pieces are removed through the same opening of the penis. This removes the blockage. ? Transurethral incision (TUIP). In this procedure, small cuts are made in the prostate. This lessens the prostate's pressure on the urethra. ? Transurethral microwave thermotherapy (TUMT). This procedure uses microwaves to create heat. The heat destroys and removes a small amount of prostate tissue. ? Transurethral needle ablation (TUNA). This procedure uses radio frequencies to destroy and remove a small amount of prostate tissue. ? Interstitial laser coagulation (ILC). This procedure uses a laser to destroy and remove a small amount of prostate tissue. ? Transurethral electrovaporization (TUVP). This procedure uses electrodes to destroy and remove a small amount of prostate tissue. ? Prostatic urethral lift. This procedure inserts an implant to push the lobes of the prostate away from the urethra. Follow these instructions at home: ? Take [id number]-wvfhuwu and prescription medicines only as told by your health care provider. ? Monitor your symptoms for any changes. Contact your health care provider with any changes. ? Avoid drinking large amounts of liquid before going to bed or out in public. ? Avoid or reduce how much caffeine or alcohol you drink. ? Give yourself time when you urinate. ? Keep all follow-up visits. This is important. Contact a health care provider if: ? You have unexplained back pain. ? Your symptoms do not get better with treatment. ? You develop side effects from the medicine (more content not included)... Normal [facility] Urology Office/Clinic Noteon 12-24-2023 Urology Office/Clinic Note Chief Complaint 6m PSA HPI Staff 6m PSA DX: Elevated PSA, Prostatitis, BPH & Fam Hx of Prostate & Bladder Cancer (father) *Tamsulosin 0.4mg BID PSA 12/17/23- 1.82 Difficulty urinating only when he misses a day of Tamsulosin therapy. Denies pain/burning and visible blood in urine. Denies complications with stream. Occasional double voids. Only in the AM. Denies any sx of prostatitis since last encounter. No concerns at this time. History of Present Illness Tests reviewed: reviewed UA and PSA. I have reviewed the previous health record information and history for this patient from Dr. Mac. I have reviewed and verified the staff HPI to be accurate for this encounter. There have been no associated fever, chills, flank pain, or blood in the urine. Denies any urinary infections since last encounter. Review of Systems PHQ Score Initial Depression Screen Score: 0 SCORE ROS - Provider Constitutional: denies weight loss, denies hot flashes. Eyes: denies eye problems. Gastrointestinal: denies nausea, denies vomiting. Cardiovascular: denies chest pain or angina. Integumentary: no dryness Musculoskeletal: denies musculoskeletal symptoms. ENMT: denies otolaryngeal symptoms. Respiratory: no shortness of breath. Heme/Lymph: denies easy bleeding tendency, denies easy bruising tendency. Psychiatric: no confusion, no anxiety. Genitourinary: See HPI. Physical Exam Vitals & Measurements HT: 70 in HT: 177 cm WT: 80 kg WT: 176 lb BMI: 25.54 General Appearance: alert, no distress, well nourished, well developed male. Assessment/Plan 1. Elevated PSA (R97.20: Elevated prostate specific antigen [PSA]) PSA: 05/27/19 - 2.01 11/24/19 - 1.89 06/15/20 - 2.14 11/22/20 - 2.46 11/29/21 - 1.43 03/09/23 - 3.05 (had infection at that time) 05/27/23 - 2.08 12/17/23 - 1.82 PSA has decreased which is favorable. Will continue to monitor. Repeat in 6 months [will have to double due to starting Dutasteride] 2. BPH with urinary obstruction (N40.1: Benign prostatic hyperplasia with lower urinary tract symptoms) Taking Flomax 0.4mg bid. Reports he sometimes forgets to take it bid, but always takes it at least once. Still does not feel empty. No hesitancy. Strong stream. Discussed starting a prostate belt sander stone such as Dutasteride. Pt understands it can take at least 6 months to receive full affect. Monitor for SEs. -Start Dutasteride 0.5mg qd -Continue Flomax 0.4mg bid 3. History of prostatitis (Z87.438: Personal history of other diseases of male genital organs) Hx of being tx'd with Doxycycline. Asx currently. UA today neg. No longer experiencing pain. 4. Family history of prostate cancer in father (Z80.42: Family history of malignant neoplasm of prostate) Father. Also had bladder cancer. Follow-up With When Contact Information MARIAN GLEASON, [place] [address], [address] [place] [address]- Additional Instructions: 6 mos w/ PSA Patient Education Benign Prostatic Hyperplasia I, Hiwot Fernandez, personally scribed for Dr. Mac on 12/24/2023 13:05:11. . Documentation recorded by the scribe, Hiwot Fernandez, accurately reflects the services(s) I performed and decisions made by me. Authenticated by Dr. Mac on 12/24/2023 13:09:07. Problem List/Past Medical History Ongoing Acosta's esophagus BPH with urinary obstruction Cigarette nicotine dependence Depression Elevated cholesterol Elevated PSA Family history of prostate cancer in father Hiatal hernia History of prostatitis HTN (hypertension) Nocturia Panic attack Physical exam Prostate cancer screening Prostatitis Smoker Historical No qualifying data Procedure/Surgical History Cystoscopy (09/20/2003), Colonoscopy. Medications amLODIPine 5 mg Tab, 5 mg= 1 tab(s), Oral, Daily, 1 refills Flomax 0.4 mg Cap, 0.4 mg= 1 cap(s), Oral, BID, 3 refills Allergies No Known Allergies Social History Tobacco 5-9 cigarettes (between 1/4 to 1/2 pack)/day in last 30 days Tobacco Use:. Never Smokeless Tobacco Use:. Cigarettes, Household tobacco concerns: No. Yes, 12/24/2023 Family History Bladder cancer: Father. Diabetes: Mother. Hypertension: Mother and Father. Primary malignant neoplasm of prostate: Father. Immunizations Vaccine Date Status Comments SARS-CoV-2 (COVID-19) Ad26 vaccine 08/15/2021 Recorded 2023-03-15: TPV60 SARS-CoV-2 (COVID-19) Ad26 vaccine 02/15/2021 Recorded 2023-03-15: TPV60 influenza virus vaccine, inactivated - Not Given Patient Refuses SARS-CoV-2 (COVID-19) Ad26 vaccine 2020 Recorded Lab Results Ambulatory Point of Care Results Bilirubin Urine Dipstick: Negative (12/24/23 11:59:00) Blood Urine Dipstick: Negative (12/24/23 11:59:00) Glucose Urine Dipstick: Negative (12/24/23 11:59:00) Ketones Urine Dipstick: Negative (12/24/23 11:59:00) Leukocytes Urine Dipstick: Negative (12/24/23 11:59:00) Nitrit (more content not included)... Normal [facility] Comment on above: Result Comment: Elec tronically Signed By: Ti MAC MD\.br\Date and Time Signed: 12/24/23 13:09 EDT\.br\Electronically Co-Signed By: Hiwot Fernandez\.br\Date and Time Co-Signed: 12/24/23 13:05 EDT\.br\Electronically Co-Signed By: Hiwot Fernandez\.br\Date and Time Co-Signed: 12/24/23 13:06 EDT Lab Reportson 12-20-2023 Lab Reports [id number]#[id number] 0TIFF [facility] Lab Reports [id number] 0TIFF [facility] Physician Orderon 12-20-2023 Physician Order [id number] .00TIFF [facility] Reference Lab Notificationon 12-20-2023 Ref Lab [facility] Comment on above: Performed By: #### 2 [id number] ####[facility] [address] [place] [address] Results Report See Ref Lab Report Normal [facility] Comment on above: Performed By: #### 2 [id number] ####[facility] [address] [place] [address] Reference Lab Reporton 12-19 Reference Lab Report [id number] .00TIFF Normal [facility] CBC (INCLUDES DIFF/PLT)on Basophils (Bld) [#/Vol] 0.042 10*3/uL Normal 0-200 [facility] Comment on above: Performed By: #### 1 0231, 63, 7600 #### [facility] of [place] [address] Care Transport Nurse: Aron Almendarez MD Basophils/100 WBC (Bld) 0.8 % Normal [facility] Comment on above: Performed By: #### 1 0231, 63, 7600 #### [facility] [place] [address] Care Transport Nurse: Aron Almendarez MD Eosinophils (Bld) [#/Vol] 0.198 10*3/uL Normal 15-500 [facility] Comment on above: Performed By: #### 1 023, 63, 7600 #### [facility] [place] [address] Care Transport Nurse: Aron Almendarez MD Eosinophils/100 WBC (Bld) 3.8 % Normal [facility] Comment on above: Performed By: #### 1 023, 63, 7600 #### [facility] [place] [address] Care Transport Nurse: Aron Almendarez MD Erythrocyte distribution width (RBC) [Ratio] 12.6 % Normal 11.0-15.0 [facility] Comment on above: Performed By: #### 1 0231, 63, 7600 #### [facility] of [place] [address] Care Transport Nurse: Aron Almendarez MD Hematocrit (Bld) [Volume fraction] 46.4 % Normal 38.5-50.0 [facility] Comment on above: Performed By: #### 1 023, 93, 7600 #### [facility] of [place] [address] Care Transport Nurse: Aron Almendarez MD Hemoglobin (Bld) [Mass/Vol] 16.0 g/dL Normal 13.2-17.1 [facility] Comment on above: Performed By: #### 1 0231, 6399, 7600 #### [facility] of [place] [address] Care Transport Nurse: Aron Almendarez MD Lymphocytes (Bld) [#/Vol] 1.492 10*3/uL Normal 850-3900 [facility] Comment on above: Performed By: #### 1 0231, 63, 7600 #### [facility] of [place] [address] Care Transport Nurse: Aron Almendarez MD Lymphocytes/100 WBC (Bld) 28.7 % Normal [facility] Comment on above: Performed By: #### 1 0231, 63, 7600 #### [facility] of [place] [address] Care Transport Nurse: Aron Almendarez MD MCH (RBC) [Entitic mass] 32.8 pg Normal 27.0-33.0 [facility] Comment on above: Performed By: #### 1 023, 63, 7600 #### [facility] of [place] [address] Care Transport Nurse: Aron Almendarez MD MCHC (RBC) [Mass/Vol] 34.5 g/dL Normal 32.0-36.0 [facility] Comment on above: Performed By: #### 1 0231, 6399, 7600 #### [facility] of [place] [address] Care Transport Nurse: Aron Almendarez MD MCV (RBC) [Entitic vol] 95.1 fL Normal 80.0-100.0 [facility] Comment on above: Performed By: #### 1 0231, 6399, 7600 #### [facility] of [address], [address] [place] [address] Care Transport Nurse: Aron Almendarez MD Monocytes (Bld) [#/Vol] 0.452 10*3/uL Normal 200-950 [facility] Comment on above: Performed By: #### 1 0231, 6399, 7600 #### [facility] of [address], [address] [place] [address] Care Transport Nurse: Aron Almendarez MD Monocytes/100 WBC (Bld) 8.7 % Normal [facility] Comment on above: Performed By: #### 1 0231, 6399, 7600 #### [facility] of [address], [address] [place] [address] Care Transport Nurse: Aron Almendarez MD Neutrophils (Bld) [#/Vol] 3.016 10*3/uL Normal 8331-8628 [facility] Comment on above: Performed By: #### 1 0231, 63, 7600 #### [facility] of [address], [address] [place] [address] Care Transport Nurse: Aron Almendarez MD Neutrophils/100 WBC (Bld) 58 % Normal [facility] Comment on above: Performed By: #### 1 0231, 6399, 7600 #### [facility] of [address], [address] [place] [address] Care Transport Nurse: Aron Almendarez MD Platelet mean volume (Bld) [Entitic vol] 12.1 fL Normal 7.5-12.5 [facility] Comment on above: Performed By: #### 1 0231, 6399, 7600 #### [facility] of [address], [address] [place] [address] Care Transport Nurse: Aron Almendarez MD Platelets (Bld) [#/Vol] 184 10*3/uL Normal 140-400 [facility] Comment on above: Performed By: #### 1 0231, 6399, 7600 #### [facility] of [address], [address] [place] [address] Care Transport Nurse: Aron Almendarez MD RBC (Bld) [#/Vol] 4.88 10*6/uL Normal 4.20-5.80 [facility] Comment on above: Performed By: #### 1 0231, 63, 7600 #### [facility] of [address], [address] [place] [address] Care Transport Nurse: Aron Almendarez MD WBC (Bld) [#/Vol] 5.2 10*3/uL Normal 3.8-10.8 [facility] Comment on above: Performed By: #### 1 0231, 6399, 7600 #### [facility] of [address], [address] [place] [address] Care Transport Nurse: Aron Almendarez MD [facility] 12-19-2023 Albumin [Mass/Vol] 4.2 g/dL Normal 3.6-5.1 [facility] Comment on above: Performed By: #### 1 0231, 63, 7600 #### [facility] of [address], [address] [place] [address] Care Transport Nurse: Aron Almendarez MD Albumin/Globulin [Mass ratio] 1.9 {ratio} Normal 1.0-2.5 [facility] Comment on above: Performed By: #### 1 0231, 63, 7600 #### [facility] of [place] [address] Care Transport Nurse: Aron Almendarez MD ALP [Catalytic activity/Vol] 70 U/L Normal 35-144 [facility] Comment on above: Performed By: #### 1 0231, 63, 7600 #### [facility] of [address], [address] [place] [address] Care Transport Nurse: Aron Almendarez MD ALT [Catalytic activity/Vol] 20 U/L Normal 9-46 [facility] Comment on above: Performed By: #### 1 0231, 6399, 7600 #### [facility] of [address], [address] [place] [address] Care Transport Nurse: Aron Almendarez MD AST [Catalytic activity/Vol] 19 U/L Normal 10-35 [facility] Comment on above: Performed By: #### 1 0231, 63, 7600 #### [facility] [place] [address] Care Transport Nurse: Aron Almendarez MD Bilirubin [Mass/Vol] 0.4 mg/dL Normal 0.2-1.2 [facility] Comment on above: Performed By: #### 1 0231, 63, 7600 #### [facility] [address], [address] [place] [address] Care Transport Nurse: Aron Almendarez MD BUN/CREATININE RATIO SEE NOTE: Normal 6-22 [facility] Comment on above: Result Comment: Not Reported: BUN and Creatinine are within reference range. Performed By: #### 1 0231, 63, 7600 #### [facility] [place] [address] Care Transport Nurse: Aron Almendarez MD Calcium [Mass/Vol] 9.0 mg/dL Normal 8.6-10.3 [facility] Comment on above: Performed By: #### 1 0231, 73, 8320 #### [facility] [place] [address] Care Transport Nurse: Aron Almendarez MD Chloride [Moles/Vol] 106 mmol/L Normal 98-110 [facility] Comment on above: Performed By: #### 1 0231, 63, 8070 #### [facility] of [place] [address] Care Transport Nurse: Aron Almendarez MD CO2 [Moles/Vol] 26 mmol/L Normal 20-32 [facility] Comment on above: Performed By: #### 1 0231, 6399, 7600 #### [facility] [place] [address] Care Transport Nurse: Aron Almendarez MD Creatinine [Mass/Vol] 0.97 mg/dL Normal 0.70-1.35 [facility] Comment on above: Performed By: #### 1 0231, 63, 7600 #### [facility] [address], [address] [place] [address] Care Transport Nurse: Aron Almendarez MD GFR/1.73 sq M.predicted among non-blacks MDRD (S/P/Bld) [Vol rate/Area] 88 mL/min/{1.73_m2} Normal > OR = 60 [facility] Comment on above: Performed By: #### 1 0231, 63, 7600 #### [facility] [address], [address] [place] [address] Care Transport Nurse: Aron Almendarez MD Globulin (S) [Mass/Vol] 2.2 g/dL Normal 1.9-3.7 [facility] Comment on above: Performed By: #### 1 0231, 63, 7600 #### [facility] [address], [address] [place] [address] Care Transport Nurse: Aron Almendarez MD Glucose [Mass/Vol] 118 mg/dL High 65-99 [facility] Comment on above: Result Comment: Fasting reference interval For someone without known diabetes, a glucose value between 100 and 125 mg/dL is consistent with prediabetes and should be confirmed with a follow-up test. Performed By: #### 1 0231, 63, 7600 #### [facility] [address], [address] [place] [address] Care Transport Nurse: Aron Almendarez MD Potassium [Moles/Vol] 4.2 mmol/L Normal 3.5-5.3 [facility] Comment on above: Performed By: #### 1 0231, 63, 7600 #### [facility] [address], [address] [place] [address] Care Transport Nurse: Aron Almendarez MD Protein [Mass/Vol] 6.4 g/dL Normal 6.1-8.1 [facility] Comment on above: Performed By: #### 1 0231, 63, 7600 #### [facility] [address], [address] [place] [address] Care Transport Nurse: Aron Almendarez MD Sodium [Moles/Vol] 140 mmol/L Normal 135-146 [facility] Comment on above: Performed By: #### 1 0231, 6399, 7600 #### [facility] [address], [address] [place] [address] Care Transport Nurse: Aron Almendarez MD Urea nitrogen [Mass/Vol] 11 mg/dL Normal 7-25 [facility] Comment on above: Performed By: #### 1 0231, 6399, 7600 #### [facility] [place] [address] Care Transport Nurse: Aron Almendarez MD LIPID PANEL, [facility] [place] - Cholesterol [Mass/Vol] 189 mg/dL Normal <200 [facility] Comment on above: Order Comment: FASTI NG: UNKNOWN Performed By: #### 1 0231, 6399, 7600 #### [facility] [address], [address] [place] [address] Care Transport Nurse: Aron Almendarez MD Cholesterol in HDL [Mass/Vol] 49 mg/dL Normal > OR = 40 [facility] Comment on above: Order Comment: FASTI NG: UNKNOWN Performed By: #### 1 0231, 6399, 7600 #### [facility] [place] [address] Care Transport Nurse: Aron Almendarez MD Cholesterol in LDL [Mass/Vol] 119 mg/dL High [facility] Comment on above: Order Comment: FASTI NG: UNKNOWN Result Comment: Refe rence range: <100 Desirable range <100 mg/dL for primary prevention; <70 mg/dL for patients with CHD or diabetic patients with > or = 2 CHD risk factors. LDL-C is now calculated using the Kat calculation, which is a validated novel method providing better accuracy than the Friedewald equation in the estimation of LDL-C. Jon GARCIA et al. PRUDENCIO. 2013;310(19): 5337-4843 (http://education.[employer].GLWL Research/faq/EDD907) Performed By: #### 1 0231, 6399, 7600 #### [facility] [address], [address] [place] [address] Care Transport Nurse: Aron Almendarez MD Cholesterol.total/C holesterol in HDL [Mass ratio] 3.9 {ratio} Normal <5.0 [facility] Comment on above: Order Comment: FASTI NG: UNKNOWN Performed By: #### 1 0231, 6399, 7600 #### [facility] [address], [address] [place] [address] Care Transport Nurse: Aron Almendarez MD NON HDL CHOLESTEROL 140 mg/dL (calc) High <130 [facility] Comment on above: Order Comment: FASTI NG: UNKNOWN Result Comment: For patients with diabetes plus 1 major ASCVD risk factor, treating to a non-HDL-C goal of <100 mg/dL (LDL-C of <70 mg/dL) is considered a therapeutic option. Performed By: #### 1 0231, 63, 7600 #### [facility] [place] [address] Care Transport Nurse: Aron Almendarez MD Triglyceride [Mass/Vol] 100 mg/dL Normal <150 [facility] Comment on above: Order Comment: FASTI NG: UNKNOWN Performed By: #### 1 0231, 6399, 7600 #### [facility] [place] [address] Care Transport Nurse: Aron Almendarez MD PSA, TOTALon 12-19-2023 PSA, TOTAL 1.82 ng/mL Normal < OR = 4.00 [facility] Comment on above: Result Comment: The total PSA value from this assay system is standardized against the WHO standard. The test result will be approximately 20% lower when compared to the equimolar-standardized total PSA (Chi Marty). Comparison of serial PSA results should be interpreted with this fact in mind. This test was performed using the Siemens chemiluminescent method. Values obtained from different assay methods cannot be used interchangeably. PSA levels, regardless of value, should not be interpreted as absolute evidence of the presence or absence of disease. Your request to have a duplicate copy faxed has been acknowledged. Queued to: [id number] Queued to: [id number] Performed By: #### 1 0231, 6399, 6600 #### [facility] [address], [address] [place] [address] Care Transport Nurse: Aron Almendarez MD Consent for Treatmenton 11-19 Consent for Treatment [id number] 0TIFF Normal [facility] Physician Orderon 12-17-2023 Physician Order [id number]. 00TIFF Normal [facility] Insurance Correspondenceon 0 12-15-2023 Insurance Correspondence [id number] 0TIFF [facility] Ambulatory Visit Summaryon 0 12-13-2023 Ambulatory Visit Summary VALDEMAR CUELLAR :1960 Visit Date:12/13/2023 Ambulatory Visit Instructions Your Diagnosis BMI 26.0-26.9,adult Overweight Smoker Your Care Team Attending Physician - Nehemiah Moffett MD Primary Care Physician - Nehemiah Moffett MD This Is Your Medications List amlodipine (amLODIPine 5 mg Tab) tamsulosin (Flomax 0.4 mg Cap) Procedures Performed Cystoscopy (09/20/2003), Colonoscopy. Discharge Vitals Temperature (Oral) 36.9 ?C Heart Rate (Peripheral) 80 Respiratory Rate 16 Blood Pressure 130/76 Height 177 cm Height 70 in Weight 81.60 kg Weight 179.52 lb BMI 26.05 What to do next Scheduled Follow-Up Appointments Wednesday 8:20 AM EDT With: Where: [facility] Invalid Interpretation Code [address] [place] [address]- \.br\ Wednesday 5:00 PM EDT \.br\ With: Nehemiah Moffett MD\.br\ Where: [facility] Family Medicine Office/Clini c Noteon 12-13-2023 Family Medicine Office/Clinic Note HPI Staff Valdemar is a 63 ear old male presenting to establish care Establish Care: History: htn Any previous diagnosis: History of seeing any specialist: Dr Mac ( had appt next Wednesday with him) When was your last doctors visit: unsure Last provider: [facility] Any recent labs: none Health Maintenance UTD: Colonoscopy: over 10 years PSA: none flu: refused Acute: Current issues/complaints: needs his amlodipine refilled History of Present Illness Here to establish. - No issues today - Needs refills. Review of Systems PHQ Score Initial Depression Screen Score: 0 SCORE Physical Exam Vitals & Measurements T: 36.9 ?C(Oral) HR: 80(Peripheral) RR: 16 BP: 130/76 SpO2: 99% HT: 70 in HT: 177 cm WT: 81.60 kg WT: 179.52 lb BMI: 26.05 General: alert, no acute distress ENMT: oral mucosa moist, Cardiovascular: regular rate and rhythm, normal peripheral perfusion Respiratory: Lungs CTA, respirations non labored Extremities: no deformity, no trauma Neurological: oriented x 4, LOC appropriate for age, CN II-XII intact, motor strength equal & normal bilaterally, speech normal Abdomen: Soft, Nontender, Non-distended, + BS Assessment/Plan 1. BPH with urinary obstruction (N40.1: Benign prostatic hyperplasia with lower urinary tract symptoms) - Stable. - No issues. - Doing well. - See urology 2. HTN (hypertension) (I10: Essential (primary) hypertension) - At goal. - Will refill meds - Follow up 6 months 3. BMI 26.0-26.9,adult (Z68.26: Body mass index [BMI] 26.0-26.9, adult) - BMI education given 4. Cigarette nicotine dependence (F17.210: Nicotine dependence, cigarettes, uncomplicated) - Please stop smoking. - CT scan ordered Ordered: CT Chest, Low Dose Screening 5. Overweight (E66.3: Overweight) - Diet and exercise advised 6. Smoker (F17.200: Nicotine dependence, unspecified, uncomplicated) - Please stop smoking 7. Elevated PSA (R97.20: Elevated prostate specific antigen [PSA]) - Will recheck. Other obstructive and reflux uropathy (N13.8: Other obstructive and reflux uropathy) Orders: amlodipine, 5 mg = 1 tab(s), Oral, Daily, # 90 tab(s), Refills(s) 1, Pharmacy: [facility]/pharmacy #[id number], 177, cm, 12/13/23 17:30:00 EDT, Height/Length Dosing, 81.6, kg, 12/13/23 17:30:00 EDT, Weight Dosing Follow-up No qualifying data available Problem List/Past Medical History Ongoing Acosta's esophagus BPH with urinary obstruction Cigarette nicotine dependence Depression Elevated cholesterol Elevated PSA Family history of prostate cancer in father Hiatal hernia HTN (hypertension) Nocturia Panic attack Prostatitis Smoker Historical No qualifying data Procedure/Surgical History Cystoscopy (09/20/2003), Colonoscopy. Medications amLODIPine 5 mg Tab, 5 mg= 1 tab(s), Oral, Daily, 1 refills Flomax 0.4 mg Cap, 0.4 mg= 1 cap(s), Oral, BID, 3 refills Allergies No Known Allergies Social History Tobacco 5-9 cigarettes (between 1/4 to 1/2 pack)/day in last 30 days Tobacco Use:. Never Smokeless Tobacco Use:. Cigarettes, Household tobacco concerns: No., 05/31/2023 Family History Bladder cancer: Father. Diabetes: Mother. Hypertension: Mother and Father. Primary malignant neoplasm of prostate: Father. Immunizations Vaccine Date Status Comments SARS-CoV-2 (COVID-19) Ad26 vaccine 08/15/2021 Recorded 2023-03-15: TPV60 SARS-CoV-2 (COVID-19) Ad26 vaccine 02/15/2021 Recorded 2023-03-15: TPV60 influenza virus vaccine, inactivated - Not Given Patient Refuses SARS-CoV-2 (COVID-19) Ad26 vaccine 2020 Recorded Normal [facility] Comment on above: Result Comment: Elec tronically Signed By: Zuhair GLEASON, Nehemiah Merchant.br\Date and Time Signed: 12/13/23 18:51 EDT Provider Letteron 12-02-2023 Provider Letter November 30, 2023 VALDEMAR CUELLAR [address] [place] [address] : 1960 Dear Valdemar, We have been trying to reach you with no success. You have an appointment with Dr. Ti Mac on 12/06/23 which will need to be rescheduled since he/she will be out of the office that day. Please contact the office at the number listed below to get this appointment rescheduled at your earliest convenience. Thank you for your prompt attention to this matter. Sincerely, [facility] [address], [place] [address] Pt called. Appt has been RS'd to 12/24/23 Normal [facility] Vital Signs Date Time Vital Sign Value Performing Clinician Facility 07-03-2024 15:29-0400 Diastolic blood pressure 82 mm[Hg] Ti MAC [facility] 07-03-2024 15:29-0400 Heart rate 68 /min Ti MAC [facility] 07-03-2024 15:29-0400 Systolic blood pressure 136 mm[Hg] Ti MAC [facility] 05-31-2023 15:53-0400 Blood Pressure Location Ti MAC [facility] 05-31-2023 15:53-0400 Body temperature 98.42 [degF] Ti MAC [facility] 05-31-2023 15:53-0400 Diastolic blood pressure 78 mm[Hg] Ti MAC [facility] 05-31-2023 15:53-0400 Heart rate 88 /min Ti MAC [facility] 05-31-2023 15:53-0400 Systolic blood pressure 118 mm[Hg] Ti MAC [facility] 03-15-2023 15:23-0400 Blood Pressure Location Ti MAC [facility] 03-15-2023 15:23-0400 Diastolic blood pressure 74 mm[Hg] Ti MAC [facility] 03-15-2023 15:23-0400 Heart rate 70 /min Ti MAC [facility] 03-15-2023 15:23-0400 Respiratory rate 16 /min Ti MAC [facility] 03-15-2023 15:23-0400 Systolic blood pressure 130 mm[Hg] Ti MAC [facility] Encounters Encounter Date Encounter Type Care Provider Facility Start: 01-15-2025 ambulatory Nehemiha Moffett Facility :[facility] Start: 11-03-2024 [facility]: 10-30-2024 ambulatory Ti [facility] Start: 10-26-2024 ambulatory Ti MAC Facili ty:[id number] Start: 09-25-2024 End: 09-25-2024 ambulatory Ti MAC Facility:CD:[id number] Start: 07-17-2024 End: 07-17-2024 ambulatory Nehemiah Moffett Facility:[facility] Start: 07-03-2024 End: 07-03-2024 ambulatory Ti MAC Facility:[facility] Start: 07-03-2024 End: 07-03-2024 Patient encounter procedure Ti MAC [facility] Start: 01-18-2024 ambulatory Ti MAC Facility :[facility] Start: 01-17-2024 End: 01-17-2024 ambulatory Nehemiah Moffett Facility:[facility] Start: 12-24-2023 End: 12-24-2023 ambulatory Ti MAC Facility:[facility] [place] Start: 12-24-2023 End: 12-24-2023 Patient encounter procedure Ti MAC [facility] Start: 12-17-2023 End: 12-17-2023 Patient encounter procedure Nehemiah Moffett [facility] Start: 12-17-2023 End: 12-17-2023 ambulatory Nehemiah Moffett Facility:[facility] Start: 12-13-2023 End: 12-13-2023 ambulatory Nehemiah Moffett Facility:[facility] Start: 12-09-2023 ambulatory Ti MAC Facility :[facility] Start: 12-06-2023 ambulatory Ti MAC Facili ty:[facility] Start: 05-31-2023 End: 05-31-2023 Patient encounter procedure Ti MAC [facility] Start: 03-15-2023 End: 03-15-2023 Patient encounter procedure Ti MAC [facility] Start: 11-29-2021 End: 11-30-[address] TI MAC Facility:[facility] Procedures Date Procedure Procedure Detail Performing Clinician Start: 11-29-[address] GRACE MAC Comment on above: Performed By: #### P SAD #### [facility] [address] [place] [address] Dr. Ray Barajas Start: 09-20-2003 Cystoscopy Ti ELLIS Colonoscopy Ti MAC Immunizations Immunization Date Immunization Notes Care Provider Fa cili 08-15-2021 SARS-CoV-2 (COVID-19 ) Ad26 vaccine, recombinant Ti MAC [facility] Comment on above: Result Comment: 2022: TPV60 02-15-2021 SARS-CoV-2 (COVID-19 ) Ad26 vaccine, recombinant Ti MAC [facility] Comment on above: Result Comment: 2022: TPV60 09-20-2020 SARS-CoV-2 (COVID-19 ) Ad26 vaccine, recombinant Ti MAC [facility] NEGATED: Highlighted row has not occurred!12-02-2020 influenza virus vaccine, unspecified formulation Ti MAC [facility] Payers Date Payer Category Payer Unknown [id number] 2.16.84 [id number] 1960 Unknown [id number] 2.16.8 [id number]. 1960 Unknown [id number] 2.16.8 [id number] 1960 Unknown [id number] 2.16.8 40.1.317553.3.579.2. 1960 Unknown [id number] 2.16.8 40.1.019460.3.579.2. 1960 Unknown [id number] 2.16.8 40.1.237699.3.579.2. 1960 Unknown [id number] 2.16.8 40.1.558308.3.579.2. 1960 Unknown [id number] 2.16.8 40.1.318600.3.579.2.72 1960 Unknown [id number] 2.16.8 40.1.003804.3.579.2 1960 Unknown [id number] 2.16.8 [id number] 1960 Unknown [id number] 2.16.8 [id number] 1960 Unknown [id number] 2.16.8 [id number] 1960 Unknown [id number] 2.16.8 [id number] 1959 Unknown [id number] Social History Date Type Detail Facility Start: 03-15-2023 Tobacco smoking status Heavy t obacco smoker (finding) [facility] Tobacco smoking status Never [facility] Sex Assigned At Male [facility] Start: 05-31-2023 End: 07-03-2024 Tobacco smoking status Light tobacco smoker (finding) [facility] Functional Status Date Assessment Result Facility 07-03-2024 Functional Status N/A [facility] 12-24-2023 Functional Status N/A [facility] 05-31-2023 Functional Status N/A [facility] 03-15-2023 Functional Status N/A [facility] Clinical Notes 04-23-2021 to 07-17-2024 [facility]iology[facility]iology[facility]iology Note Date & Type Note Facility 07-17-2024 Note Patient Education Nutrition BMI for Adults Body mass index (BMI) is a number found using a person's weight and height. BMI can help tell how much of a person's weight is made up of fat. BMI does not measure body fat directly. It is used instead of tests that directly measure body fat, which can be difficult and expensive. What are BMI measurements used for? BMI is useful to: ??? Find out if your weight puts you at higher risk for medical problems. ??? Help recommend changes, such as in diet and exercise. This can help you reach a healthy weight. BMI screening can be done again to see if these changes are working. How is BMI calculated? Your height and weight are measured. The BMI is found from those numbers. This can be done with U.S. or metric measurements. Note that charts and online BMI calculators are available to help you find your BMI quickly and easily without doing these calculations. To calculate your BMI in U.S. measurements: 1. Measure your weight in pounds (lb). 2. Multiply the number of pounds by 703. ??? So, for an adult who weighs 150 lb, multiply that number by 703: 150 x 703, which equals 105,450. 3. Measure your height in inches. Then multiply that number by itself to get a measurement called inches squared. ??? So, for an adult who is 70 inches tall, the inches squared measurement is 70 inches x 70 inches, which equals 4,900 inches squared. 4. Divide the total from step 2 (number of lb x 703) by the total from step 3 (inches squared): 105,450 ? 4,900 = 21.5. This is your BMI. To calculate your BMI in metric measurements: 1. Measure your weight in kilograms (kg). ??? For this example, the weight is 70 kg. 2. Measure your height in meters (m). Then multiply that number by itself to get a measurement called meters squared. ??? So, for an adult who is 1.75 m tall, the meters squared measurement is 1.75 m x 1.75 m, which equals 3.1 meters squared. 3. Divide the number of kilograms (your weight) by the meters squared number. In this example: 70 ? 3.1 = 22.6. This is your BMI. What do the results mean? BMI charts are used to see if you are underweight, normal weight, overweight, or obese. The following guidelines will be used: ??? Underweight: BMI less than 18.5. ??? Normal weight: BMI between 18.5 and 24.9. ??? Overweight: BMI between 25 and 29.9. ??? Obese: BMI of 30 or above. BMI is a tool and cannot diagnose a condition. Talk with your health care provider about what your BMI means for you. Keep these notes in mind: ??? Weight includes fat and muscle. Someone with a muscular build, such as an athlete, may have a BMI that is higher than 24.9. In cases like these, BMI is not a correct measure of body fat. ??? If you have a BMI of 25 or higher, your provider may need to do more testing to find out if excess body fat is the cause. ??? BMI is measured the same way for males and females. Females usually have more body fat than males of the same height and weight. Where to find more information For more information about BMI, including tools to quickly find your BMI, go to: ??? Centers for Disease Control and Prevention: cdc.gov ??? [place] Heart Association: heart.org ??? National Heart, Lung, and Blood [place]: nhlbi.nih.gov This information is not intended to replace advice given to you by your health care provider. Make sure you discuss any questions you have with your health care provider. Document Revised: 05/27/2023 Document Reviewed: 05/20/2023 [employer] Patient Education ? 2023 [employer]. [facility] 07-03-2024 Hospital Discharge instructions Patient Education 07/03/2024 16:13:29 Prostatitis Prostatitis Prostatitis is swelling or inflammation of the prostate gland, also called the prostate. This gland is about 1.5 inches wide and 1 inch high, and it is involved in making semen. The prostate is located below a man's bladder, in front of the rectum. There are four types of prostatitis: Chronic prostatitis (CP), also called chronic pelvic pain syndrome (CPPS). This is the most common type of prostatitis. It is associated with increased muscle tone in the area between the hip bones (pelvic area), around the prostate. This type is also known as a pelvic floor disorder. Chronic bacterial prostatitis. This type usually results from an acute bacterial infection in the prostate gland that keeps coming back or has not been treated properly. The symptoms are less severe than those caused by acute bacterial prostatitis, which lasts a shorter time. Asymptomatic inflammatory prostatitis. This type does not have symptoms and does not need treatment. This is diagnosed when tests are done for other disorders of the urinary tract or reproductive tract. Acute bacterial prostatitis. This type starts quickly and results from an acute bacterial infection in the prostate gland. It is usually associated with a bladder infection, high fever, and chills. This is the least common type of prostatitis. What are the causes? Bacterial prostatitis is caused by an infection from bacteria. Chronic nonbacterial prostatitis may be caused by: Factors related to the nervous system. This system includes thebrain, spinal cord, and nerves. An autoimmune response. This happens when the body's disease-fighting system attacks healthy tissue in the body by mistake. Psychological factors. These have to do with how the mind works. The causes of the other types of prostatitis are usually not known. What are the signs or symptoms? Symptoms of this condition depend on the type of prostatitis you have. Acute bacterial prostatitis Symptoms may include: Pain or burning during urination. Frequent and sudden urges to urinate. Trouble starting to urinate. Fever. Chills. Pain in your muscles or joints, lower back, or lower abdomen. Other types of prostatitis Symptoms may include: Sudden urges to urinate, or urinating often. Trouble starting to urinate. Weak urine stream. Dribbling after urination. Discharge coming from the penis. Pain in the testicles, the penis, or the tip of the penis. Pain in the area in front of the rectum and below the scrotum (perineum). Pain when ejaculating. How is this diagnosed? This condition may be diagnosed based on: A physical and medical exam. A digital rectal exam. For this, the health care provider may use a finger to feel the prostate. A urine test to check for bacteria. A semen sample or blood tests. Ultrasound. Urodynamic tests to check how your body handles urine. Cystoscopy to look inside your bladder or inside the part of your body that drains urine from the bladder (urethra). How is this treated? Treatment for this condition depends on the type of prostatitis. Treatment may involve: Medicines to relieve pain or inflammation, or to help relax your muscles. Physical therapy. Heat therapy. Biofeedback. These techniques help you control certain body functions. Relaxation exercises. Antibiotic medicine, if your condition is caused by bacteria. Sitz baths. These warm water baths help to relax your pelvic floor muscles, which helps to relieve pressure on the prostate. Follow these instructions at home: Medicines Take phao-mdm-oromzql and prescription medicines only as told by your health care provider. If you were prescribed an antibiotic medicine, take it as told by your health care provider. Do not stop using the antibiotic even if you start to feel better. Managing pain and swelling Take sitz baths as directed by your health care provider. For a sitz bath, sit in warm water that is deep enough to cover your hips and buttocks. If directed, apply heat to the affected area as often as told by your health care provider. Use the heat source that your health care provider recommends, such as a moist heat pack or a heating pad. ?Place a towel between your skin and the heat source. ?Leave the heat on for 20 30 minutes. ?Remove the heat if your skin turns bright red. This is especially important if you are unable to feel pain, heat, or cold. You may have a greater risk of getting burned. General instructions Do exercises as told by your health care provider, if you were prescribed physical therapy, biofeedback, or relaxation exercises. Keep all follow-up visits as told by your health care provider. This is important. Where to find more information [employer] [place] of [employer] and Digest[employer] and Kidney Diseases: https://www.niddk.nih.gov Contact a health care provider if: Your symptoms get worse. You have a fever. Get help right away if: You have chills. You feel light-headed or feel like you may faint. You cannot urinate. You have blood or blood clots in your urine. Summary Prostatitis is swelling or inflammation of the prostate gland. Treatment for this condition depends on the type of prostatitis. Take adde-ldu-rzuaicy and prescription medicines only as told by your health care provider. Get help right away of you have chills, feel light-headed, feel like you may faint, cannot urinate, or have blood or blood clots in your urine. This information is not intended to replace advice given to you by your health care provider. Make sure you discuss any questions you have with your health care provider. Document Revised: 07/22/2023 Document Reviewed: 07/22/2023 [employer] Patient Education 2023 [employer] 07/03/2024 16:13:27 Cystoscopy Cystoscopy Cystoscopy is a procedure that is used to help diagnose and sometimes treat conditions that affect the lower urinary tract. The lower urinary tract includes the bladder and the urethra. The urethra is the tube that drains urine from the bladder. Cystoscopy is done using a thin, tube-shaped instrument with a light and camera at the end (cystoscope). The cystoscope may be hard or flexible, depending on the goal of the procedure. The cystoscope is inserted through the urethra, into the bladder. Cystoscopy may be recommended if you have: Urinary tract infections that keep coming back. Blood in the urine (hematuria). An inability to control when you urinate (urinary incontinence) or an overactive bladder. Unusual cells found in a urine sample. A blockage in the urethra, such as a urinary stone. Painful urination. An abnormality in the bladder found during an intravenous pyelogram (IVP) or CT scan. Cystoscopy may also be done to remove a sample of tissue to be examined under a microscope (biopsy). Tell a health care provider about: Any allergies you have. All medicines you are taking, including vitamins, herbs, eye drops, creams, and qlge-cbg-amewveu medicines. Any problems you or family members have had with anesthetic medicines. Any blood disorders you have. Any surgeries you have had. Any medical conditions you have. Whether you are or may be . What are the risks? Generally, this is a safe procedure. However, problems may occur, including: Infection. Bleeding. Allergic reactions to medicines. Damage to other structures or organs. What happens before the procedure? Medicines Ask your health care provider about: Changing or stopping your regular medicines. This is especially important if you are taking diabetes medicines or blood thinners. Taking medicines such as aspirin and ibuprofen. These medicines can thin your blood. Do not take these medicines unless your health care provider tells you to take them. Taking tult-jep-gzbroym medicines, vitamins, herbs, and supplements. Tests You may have an exam or testing, such as: X-rays of the bladder, urethra, or kidneys. CT scan of the abdomen or pelvis. Urine tests to check for signs of infection. General instructions Follow instructions from your health care provider about eating or drinking restrictions. Ask your health care provider what steps will be taken to help prevent infection. These steps may include: ?Washing skin with a germ-killing soap. ?Taking antibiotic medicine. Plan to have a responsible adult take you home from the hospital or clinic. What happens during the procedure? You will be given one or more of the following: ?A medicine to help you relax (sedative). ?A medicine to numb the area (local anesthetic). The area around the opening of your urethra will be cleaned. The cystoscope will be passed through your urethra into your bladder. Germ-free (sterile) fluid will flow through the cystoscope to fill your bladder. The fluid will stretch your bladder so that your health care provider can clearly examine your bladder rangel. Your doctor will look at the urethra and bladder. Your doctor may take a biopsy or remove stones. The cystoscope will be removed, and your bladder will be emptied. The procedure may vary among health care providers and hospitals. What can I expect after the procedure? After the procedure, it is common to have: Some soreness or pain in your abdomen and urethra. Urinary symptoms. These include: ?Mild pain or burning when you urinate. Pain should stop within a few minutes after you urinate. This may last for up to 1 week. ?A small amount of blood in your urine for several days. ?Feeling like you need to urinate but producing only a small amount of urine. Follow these instructions at home: Medicines Take kgiq-hsb-nebtcjw and prescription medicines only as told by your health care provider. If you were prescribed an antibiotic medicine, take it as told by your health care provider. Do not stop taking the antibiotic even if you start to feel better. General instructions Return to your normal activities as told by your health care provider. Ask your health care provider what activities are safe for you. If you were given a sedative during the procedure, it can affect you for several hours. Do not drive or operate machinery until your health care provider says that it is safe. Watch for any blood in your urine. If the amount of blood in your urine increases, call your health care provider. Follow instructions from your health care provider about eating or drinking restrictions. If a tissue sample was removed for testing (biopsy) during your procedure, it is up to you to get your test results. Ask your health care provider, or the department that is doing the test, when your results will be ready. Drink enough fluid to keep your urine pale yellow. Keep all follow-up visits. This is important. Contact a health care provider if: You have pain that gets worse or does not get better with medicine, especially pain when you urinate. You have trouble urinating. You have more blood in your urine. Get help right away if: You have blood clots in your urine. You have abdominal pain. You have a fever or chills. You are unable to urinate. Summary Cystoscopy is a procedure that is used to help diagnose and sometimes treat conditions that affect the lower urinary tract. Cystoscopy is done using a thin, tube-shaped instrument with a light and camera at the end. After the procedure, it is common to have some soreness or pain in your abdomen and urethra. Watch for any blood in your urine. If the amount of blood in your urine increases, call your health care provider. If you were prescribed an antibiotic medicine, take it as told by your health care provider. Do not stop taking the antibiotic even if you start to feel better. This information is not intended to replace advice given to you by your health care provider. Make sure you discuss any questions you have with your health care provider. Document Revised: 05/20/2022 Document Reviewed: 04/18/2021 [employer] Patient Education 2023 [employer]. 07/03/2024 16:13:24 Benign Prostatic Hyperplasia Benign Prostatic Hyperplasia Benign prostatic hyperplasia (BPH) is an enlarged prostate gland that is caused by the normal aging process. The prostate may get bigger as a man gets older. The condition is not caused by cancer. The prostate is a walnut-sized gland that is involved in the production of semen. It is located in front of the rectum and below the bladder. The bladder stores urine. The urethra carries stored urine out of the body. An enlarged prostate can press on the urethra. This can make it harder to pass urine. The buildup of urine in the bladder can cause infection. Back pressure and infection may progress to bladder damage and kidney (renal) failure. What are the causes? This condition is part of the normal aging process. However, not all men develop problems from this condition. If the prostate enlarges away from the urethra, urine flow will not be blocked. If it enlarges toward the urethra and compresses it, there will be problems passing urine. What increases the risk? This condition is more likely to develop in men older than 50 years. What are the signs or symptoms? Symptoms of this condition include: Getting up often during the night to urinate. Needing to urinate frequently during the day. Difficulty starting urine flow. Decrease in size and strength of your urine stream. Leaking (dribbling) after urinating. Inability to pass urine. This needs immediate treatment. Inability to completely empty your bladder. Pain when you pass urine. This is more common if there is also an infection. Urinary tract infection (UTI). How is this diagnosed? This condition is diagnosed based on your medical history, a physical exam, and your symptoms. Tests will also be done, such as: A post-void bladder scan. This measures any amount of urine that may remain in your bladder after you finish urinating. A digital rectal exam. In a rectal exam, your health care provider checks your prostate by putting a lubricated, gloved finger into your rectum to feel the back of your prostate gland. This exam detects the size of your gland and any abnormal lumps or growths. An exam of your urine (urinalysis). A prostate specific antigen (PSA) screening. This is a blood test used to screen for prostate cancer. An ultrasound. This test uses sound waves to electronically produce a picture of your prostate gland. Your health care provider may refer you to a specialist in kidney and prostate diseases (urologist). How is this treated? Once symptoms begin, your health care provider will monitor your condition (active surveillance or watchful waiting). Treatment for this condition will depend on the severity of your condition. Treatment may include: Observation and yearly exams. This may be the only treatment needed if your condition and symptoms are mild. Medicines to relieve your symptoms, including: ?Medicines to shrink the prostate. ?Medicines to relax the muscle of the prostate. Surgery in severe cases. Surgery may include: ?Prostatectomy. In this procedure, the prostate tissue is removed completely through an open incision or with a laparoscope or robotics. ?Transurethral resection of the prostate (TURP). In this procedure, a tool is inserted through the opening at the tip of the penis (urethra). It is used to cut away tissue of the inner core of the prostate. The pieces are removed through the same opening of the penis. This removes the blockage. ?Transurethral incision (TUIP). In this procedure, small cuts are made in the prostate. This lessens the prostate's pressure on the urethra. ?Transurethral microwave thermotherapy (TUMT). This procedure uses microwaves to create heat. The heat destroys and removes a small amount of prostate tissue. ?Transurethral needle ablation (TUNA). This procedure uses radio frequencies to destroy and remove a small amount of prostate tissue. ?Interstitial laser coagulation (ILC). This procedure uses a laser to destroy and remove a small amount of prostate tissue. ?Transurethral electrovaporization (TUVP). This procedure uses electrodes to destroy and remove a small amount of prostate tissue. ?Prostatic urethral lift. This procedure inserts an implant to push the lobes of the prostate away from the urethra. Follow these instructions at home: Take hbyf-trn-rytoufr and prescription medicines only as told by your health care provider. Monitor your symptoms for any changes. Contact your health care provider with any changes. Avoid drinking large amounts of liquid before going to bed or out in public. Avoid or reduce how much caffeine or alcohol you drink. Give yourself time when you urinate. Keep all follow-up visits. This is important. Contact a health care provider if: You have unexplained back pain. Your symptoms do not get better with treatment. You develop side effects from the medicine you are taking. Your urine becomes very dark or has a bad smell. Your lower abdomen becomes distended and you have trouble passing urine. Get help right away if: You have a fever or chills. You suddenly cannot urinate. You feel light-headed or very dizzy, or you faint. There are large amounts of blood or clots in your urine. Your urinary problems become hard to manage. You develop moderate to severe low back or flank pain. The flank is the side of your body between the ribs and the hip. These symptoms may be an emergency. Get help right away. Call 911. Do not wait to see if the symptoms will go away. Do not drive yourself to the hospital. Summary Benign prostatic hyperplasia (BPH) is an enlarged prostate that is caused by the normal aging process. It is not caused by cancer. An enlarged prostate can press on the urethra. This can make it hard to pass urine. This condition is more likely to develop in men older than 50 years. Get help right away if you suddenly cannot urinate. This information is not intended to replace advice given to you by your health care provider. Make sure you discuss any questions you have with your health care provider. Document Revised: 03/25/2022 Document Reviewed: 03/25/2022 [employer] Patient Education 2023 [employer]. Follow Up Care 12/24/2023 13:10:49 With:MARIAN GLEASON, Ti [place]le, URL Address: [facility] [address], [place] [id number]- [phone] When: Unknown [facility] [place] 07-03-2024 Note Patient Education Infectious Disease Prostatitis Prostatitis is swelling or inflammation of the prostate gland, also called the prostate. This gland is about 1.5 inches wide and 1 inch high, and it is involved in making semen. The prostate is located below a man's bladder, in front of the rectum. There are four types of prostatitis: ? Chronic prostatitis (CP), also called chronic pelvic pain syndrome (CPPS). This is the most common type of prostatitis. It is associated with increased muscle tone in the area between the hip bones (pelvic area), around the prostate. This type is also known as a pelvic floor disorder. ? Chronic bacterial prostatitis. This type usually results from an acute bacterial infection in the prostate gland that keeps coming back or has not been treated properly. The symptoms are less severe than those caused by acute bacterial prostatitis, which lasts a shorter time. ? Asymptomatic inflammatory prostatitis. This type does not have symptoms and does not need treatment. This is diagnosed when tests are done for other disorders of the urinary tract or reproductive tract. ? Acute bacterial prostatitis. This type starts quickly and results from an acute bacterial infection in the prostate gland. It is usually associated with a bladder infection, high fever, and chills. This is the least common type of prostatitis. What are the causes? Bacterial prostatitis is caused by an infection from bacteria. Chronic nonbacterial prostatitis may be caused by: ? Factors related to the nervous system. This system includes thebrain, spinal cord, and nerves. ? An autoimmune response. This happens when the body's disease-fighting system attacks healthy tissue in the body by mistake. ? Psychological factors. These have to do with how the mind works. The causes of the other types of prostatitis are usually not known. What are the signs or symptoms? Symptoms of this condition depend on the type of prostatitis you have. Acute bacterial prostatitis Symptoms may include: ? Pain or burning during urination. ? Frequent and sudden urges to urinate. ? Trouble starting to urinate. ? Fever. ? Chills. ? Pain in your muscles or joints, lower back, or lower abdomen. Other types of prostatitis Symptoms may include: ? Sudden urges to urinate, or urinating often. ? Trouble starting to urinate. ? Weak urine stream. ? Dribbling after urination. ? Discharge coming from the penis. ? Pain in the testicles, the penis, or the tip of the penis. ? Pain in the area in front of the rectum and below the scrotum (perineum). ? Pain when ejaculating. How is this diagnosed? This condition may be diagnosed based on: ? A physical and medical exam. ? A digital rectal exam. For this, the health care provider may use a finger to feel the prostate. ? A urine test to check for bacteria. ? A semen sample or blood tests. ? Ultrasound. ? Urodynamic tests to check how your body handles urine. ? Cystoscopy to look inside your bladder or inside the part of your body that drains urine from the bladder (urethra). How is this treated? Treatment for this condition depends on the type of prostatitis. Treatment may involve: ? Medicines to relieve pain or inflammation, or to help relax your muscles. ? Physical therapy. ? Heat therapy. ? Biofeedback. These techniques help you control certain body functions. ? Relaxation exercises. ? Antibiotic medicine, if your condition is caused by bacteria. ? Sitz baths. These warm water baths help to relax your pelvic floor muscles, which helps to relieve pressure on the prostate. Follow these instructions at home: Medicines ? Take bxfa-szz-oxjviif and prescription medicines only as told by your health care provider. ? If you were prescribed an antibiotic medicine, take it as told by your health care provider. Do not stop using the antibiotic even if you start to feel better. Managing pain and swelling ? Take sitz baths as directed by your health care provider. For a sitz bath, sit in warm water that is deep enough to cover your hips and buttocks. ? If directed, apply heat to the affected area as often as told by your health care provider. Use the heat source that your health care provider recommends, such as a moist heat pack or a heating pad. ? Place a towel between your skin and the heat source. ? Leave the heat on for 20?30 minutes. ? Remove the heat if your skin turns bright red. This is especially important if you are unable to feel pain, heat, or cold. You may have a greater risk of getting burned. General instructions ? Do exercises as told by your health care provider, if you were prescribed physical therapy, biofeedback, or relaxation exercises. ? Keep all follow-up visits as told by your health care provider. This is important. Where to find more information ? [place] of Diabetes and Digestive a (more content not included)... [facility] 12-24-2023 Hospital Discharge instructions Patient Education 12/24/2023 13:03:55 Benign Prostatic Hyperplasia Benign Prostatic Hyperplasia Benign prostatic hyperplasia (BPH) is an enlarged prostate gland that is caused by the normal aging process. The prostate may get bigger as a man gets older. The condition is not caused by cancer. The prostate is a walnut-sized gland that is involved in the production of semen. It is located in front of the rectum and below the bladder. The bladder stores urine. The urethra carries stored urine out of the body. An enlarged prostate can press on the urethra. This can make it harder to pass urine. The buildup of urine in the bladder can cause infection. Back pressure and infection may progress to bladder damage and kidney (renal) failure. What are the causes? This condition is part of the normal aging process. However, not all men develop problems from this condition. If the prostate enlarges away from the urethra, urine flow will not be blocked. If it enlarges toward the urethra and compresses it, there will be problems passing urine. What increases the risk? This condition is more likely to develop in men older than 50 years. What are the signs or symptoms? Symptoms of this condition include: Getting up often during the night to urinate. Needing to urinate frequently during the day. Difficulty starting urine flow. Decrease in size and strength of your urine stream. Leaking (dribbling) after urinating. Inability to pass urine. This needs immediate treatment. Inability to completely empty your bladder. Pain when you pass urine. This is more common if there is also an infection. Urinary tract infection (UTI). How is this diagnosed? This condition is diagnosed based on your medical history, a physical exam, and your symptoms. Tests will also be done, such as: A post-void bladder scan. This measures any amount of urine that may remain in your bladder after you finish urinating. A digital rectal exam. In a rectal exam, your health care provider checks your prostate by putting a lubricated, gloved finger into your rectum to feel the back of your prostate gland. This exam detects the size of your gland and any abnormal lumps or growths. An exam of your urine (urinalysis). A prostate specific antigen (PSA) screening. This is a blood test used to screen for prostate cancer. An ultrasound. This test uses sound waves to electronically produce a picture of your prostate gland. Your health care provider may refer you to a specialist in kidney and prostate diseases (urologist). How is this treated? Once symptoms begin, your health care provider will monitor your condition (active surveillance or watchful waiting). Treatment for this condition will depend on the severity of your condition. Treatment may include: Observation and yearly exams. This may be the only treatment needed if your condition and symptoms are mild. Medicines to relieve your symptoms, including: ?Medicines to shrink the prostate. ?Medicines to relax the muscle of the prostate. Surgery in severe cases. Surgery may include: ?Prostatectomy. In this procedure, the prostate tissue is removed completely through an open incision or with a laparoscope or robotics. ?Transurethral resection of the prostate (TURP). In this procedure, a tool is inserted through the opening at the tip of the penis (urethra). It is used to cut away tissue of the inner core of the prostate. The pieces are removed through the same opening of the penis. This removes the blockage. ?Transurethral incision (TUIP). In this procedure, small cuts are made in the prostate. This lessens the prostate's pressure on the urethra. ?Transurethral microwave thermotherapy (TUMT). This procedure uses microwaves to create heat. The heat destroys and removes a small amount of prostate tissue. ?Transurethral needle ablation (TUNA). This procedure uses radio frequencies to destroy and remove a small amount of prostate tissue. ?Interstitial laser coagulation (ILC). This procedure uses a laser to destroy and remove a small amount of prostate tissue. ?Transurethral electrovaporization (TUVP). This procedure uses electrodes to destroy and remove a small amount of prostate tissue. ?Prostatic urethral lift. This procedure inserts an implant to push the lobes of the prostate away from the urethra. Follow these instructions at home: Take zgsj-ggu-omxrsvy and prescription medicines only as told by your health care provider. Monitor your symptoms for any changes. Contact your health care provider with any changes. Avoid drinking large amounts of liquid before going to bed or out in public. Avoid or reduce how much caffeine or alcohol you drink. Give yourself time when you urinate. Keep all follow-up visits. This is important. Contact a health care provider if: You have unexplained back pain. Your symptoms do not get better with treatment. You develop side effects from the medicine you are taking. Your urine becomes very dark or has a bad smell. Your lower abdomen becomes distended and you have trouble passing urine. Get help right away if: You have a fever or chills. You suddenly cannot urinate. You feel light-headed or very dizzy, or you faint. There are large amounts of blood or clots in your urine. Your urinary problems become hard to manage. You develop moderate to severe low back or flank pain. The flank is the side of your body between the ribs and the hip. These symptoms may be an emergency. Get help right away. Call 911. Do not wait to see if the symptoms will go away. Do not drive yourself to the hospital. Summary Benign prostatic hyperplasia (BPH) is an enlarged prostate that is caused by the normal aging process. It is not caused by cancer. An enlarged prostate can press on the urethra. This can make it hard to pass urine. This condition is more likely to develop in men older than 50 years. Get help right away if you suddenly cannot urinate. This information is not intended to replace advice given to you by your health care provider. Make sure you discuss any questions you have with your health care provider. Document Revised: 03/25/2022 Document Reviewed: 03/25/2022 [employer] Patient Education 2022 [employer]. Follow Up Care 12/02/2023 14:22:38 With:MARIAN GLEASON, Ti Valle, URL Address: [address] [place] [id number] When: Unknown [facility] 05-31-2023 Hospital Discharge instructions Patient Education 05/31/2023 17:07:06 Prostatitis Prostatitis Prostatitis is swelling or inflammation of the prostate gland, also called the prostate. This gland is about 1.5 inches wide and 1 inch high, and it is involved in making semen. The prostate is located below a man's bladder, in front of the rectum. There are four types of prostatitis: Chronic prostatitis (CP), also called chronic pelvic pain syndrome (CPPS). This is the most common type of prostatitis. It is associated with increased muscle tone in the area between the hip bones (pelvic area), around the prostate. This type is also known as a pelvic floor disorder. Chronic bacterial prostatitis. This type usually results from an acute bacterial infection in the prostate gland that keeps coming back or has not been treated properly. The symptoms are less severe than those caused by acute bacterial prostatitis, which lasts a shorter time. Asymptomatic inflammatory prostatitis. This type does not have symptoms and does not need treatment. This is diagnosed when tests are done for other disorders of the urinary tract or reproductive tract. Acute bacterial prostatitis. This type starts quickly and results from an acute bacterial infection in the prostate gland. It is usually associated with a bladder infection, high fever, and chills. This is the least common type of prostatitis. What are the causes? Bacterial prostatitis is caused by an infection from bacteria. Chronic nonbacterial prostatitis may be caused by: Factors related to the nervous system. This system includes thebrain, spinal cord, and nerves. An autoimmune response. This happens when the body's disease-fighting system attacks healthy tissue in the body by mistake. Psychological factors. These have to do with how the mind works. The causes of the other types of prostatitis are usually not known. What are the signs or symptoms? Symptoms of this condition depend on the type of prostatitis you have. Acute bacterial prostatitis Symptoms may include: Pain or burning during urination. Frequent and sudden urges to urinate. Trouble starting to urinate. Fever. Chills. Pain in your muscles or joints, lower back, or lower abdomen. Other types of prostatitis Symptoms may include: Sudden urges to urinate, or urinating often. Trouble starting to urinate. Weak urine stream. Dribbling after urination. Discharge coming from the penis. Pain in the testicles, the penis, or the tip of the penis. Pain in the area in front of the rectum and below the scrotum (perineum). Pain when ejaculating. How is this diagnosed? This condition may be diagnosed based on: A physical and medical exam. A digital rectal exam. For this, the health care provider may use a finger to feel the prostate. A urine test to check for bacteria. A semen sample or blood tests. Ultrasound. Urodynamic tests to check how your body handles urine. Cystoscopy to look inside your bladder or inside the part of your body that drains urine from the bladder (urethra). How is this treated? Treatment for this condition depends on the type of prostatitis. Treatment may involve: Medicines to relieve pain or inflammation, or to help relax your muscles. Physical therapy. Heat therapy. Biofeedback. These techniques help you control certain body functions. Relaxation exercises. Antibiotic medicine, if your condition is caused by bacteria. Sitz baths. These warm water baths help to relax your pelvic floor muscles, which helps to relieve pressure on the prostate. Follow these instructions at home: Medicines Take fcog-ubf-aaxvhzo and prescription medicines only as told by your health care provider. If you were prescribed an antibiotic medicine, take it as told by your health care provider. Do not stop using the antibiotic even if you start to feel better. Managing pain and swelling Take sitz baths as directed by your health care provider. For a sitz bath, sit in warm water that is deep enough to cover your hips and buttocks. If directed, apply heat to the affected area as often as told by your health care provider. Use the heat source that your health care provider recommends, such as a moist heat pack or a heating pad. ?Place a towel between your skin and the heat source. ?Leave the heat on for 20 30 minutes. ?Remove the heat if your skin turns bright red. This is especially important if you are unable to feel pain, heat, or cold. You may have a greater risk of getting burned. General instructions Do exercises as told by your health care provider, if you were prescribed physical therapy, biofeedback, or relaxation exercises. Keep all follow-up visits as told by your health care provider. This is important. Where to find more information [employer] [place] of [employer] and [employer]estive and Kidney Diseases: https://www.niddk.nih.gov Contact a health care provider if: Your symptoms get worse. You have a fever. Get help right away if: You have chills. You feel light-headed or feel like you may faint. You cannot urinate. You have blood or blood clots in your urine. Summary Prostatitis is swelling or inflammation of the prostate gland. Treatment for this condition depends on the type of prostatitis. Take chsy-cvy-khnwpjb and prescription medicines only as told by your health care provider. Get help right away of you have chills, feel light-headed, feel like you may faint, cannot urinate, or have blood or blood clots in your urine. This information is not intended to replace advice given to you by your health care provider. Make sure you discuss any questions you have with your health care provider. Document Revised: 10/11/2020 Document Reviewed: 10/11/2020 [employer] Patient Education 2022 [employer]. Follow Up Care 03/15/2023 16:02:27 With:MARIAN GLEASON, Ti Valle, URL Address: [facility] [address], [place] [phone] When:Within 6 Month(s) Comments:PSA [facility] 03-15-2023 Hospital Discharge instructions Patient Education 03/15/2023 08:45:43 Prostate Cancer Screening Prostate Cancer Screening Prostate cancer screening is testing that is done to check for the presence of prostate cancer in men. The prostate gland is a walnut-sized gland that is located below the bladder and in front of the rectum in males. The function of the prostate is to add fluid to semen during ejaculation. Prostate cancer is one of the most common types of cancer in men. Who should have prostate cancer screening? Screening recommendations vary based on age and other risk factors, as well as between the professional organizations who make the recommendations. In general, screening is recommended if: You are age 50 to 70 and have an average risk for prostate cancer. You should talk with your health care provider about your need for screening and how often screening should be done. Because most prostate cancers are slow growing and will not cause , screening in this age group is generally reserved for men who have a 10- to 15-year life expectancy. You are younger than age 50, and you have these risk factors: ?Having a father, brother, or uncle who has been diagnosed with prostate cancer. The risk is higher if your family member's cancer occurred at an early age or if you have multiple family members with prostate cancer at an early age. ?Being a male who is Black or is of [place] or sub-Saharan descent. In general, screening is not recommended if: You are younger than age 40. You are between the ages of 40 and 49 and you have no risk factors. You are 70 years of age or older. At this age, the risks that screening can cause are greater than the benefits that it may provide. If you are at high risk for prostate cancer, your health care provider may recommend that you have screenings more often or that you start screening at a younger age. How is screening for prostate cancer done? The recommended prostate cancer screening test is a blood test called the prostate-specific antigen (PSA) test. PSA is a protein that is made in the prostate. As you age, your prostate naturally produces more PSA. Abnormally high PSA levels may be caused by: Prostate cancer. An enlarged prostate that is not caused by cancer (benign prostatic hyperplasia, or BPH). This condition is very common in older men. A prostate gland infection (prostatitis) or urinary tract infection. Certain medicines such as male hormones (like testosterone) or other medicines that raise testosterone levels. A rectal exam may be done as part of prostate cancer screening to help provide information about the size of your prostate gland. When a rectal exam is performed, it should be done after the PSA level is drawn to avoid any effect on the results. Depending on the PSA results, you may need more tests, such as: A physical exam to check the size of your prostate gland, if not done as part of screening. Blood and imaging tests. A procedure to remove tissue samples from your prostate gland for testing (biopsy). This is the only way to know for certain if you have prostate cancer. What are the benefits of prostate cancer screening? Screening can help to identify cancer at an early stage, before symptoms start and when the cancer can be treated more easily. There is a small chance that screening may lower your risk of dying from prostate cancer. The chance is small because prostate cancer is a slow-growing cancer, and most men with prostate cancer from a different cause. What are the risks of prostate cancer screening? The main risk of prostate cancer screening is diagnosing and treating prostate cancer that would never have caused any symptoms or problems. This is called overdiagnosisand overtreatment. PSA screening cannot tell you if your PSA is high due to cancer or a different cause. A prostate biopsy is the only procedure to diagnose prostate cancer. Even the results of a biopsy may not tell you if your cancer needs to be treated. Slow-growing prostate cancer may not need any treatment other than monitoring, so diagnosing and treating it may cause unnecessary stress or other side effects. Questions to ask your health care provider When should I start prostate cancer screening? What is my risk for prostate cancer? How often do I need screening? What type of screening tests do I need? How do I get my test results? What do my results mean? Do I need treatment? Where to find more information [employer] [place] [employer]: www.cancer.org [place] [employer]: www.auanet.org Contact a health care provider if: You have difficulty urinating. You have pain when you urinate or ejaculate. You have blood in your urine or semen. You have pain in your back or in the area of your prostate. Summary Prostate cancer is a common type of cancer in men. The prostate gland is located below the bladder and in front of the rectum. This gland adds fluid to semen during ejaculation. Prostate cancer screening may identify cancer at an early stage, when the cancer can be treated more easily and is less likely to have spread to other areas of the body. The prostate-specific antigen (PSA) test is the recommended screening test for prostate cancer, but it has associated risks. Discuss the risks and benefits of prostate cancer screening with your health care provider. If you are age 70 or older, the risks that screening can cause are greater than the benefits that it may provide. This information is not intended to replace advice given to you by your health care provider. Make sure you discuss any questions you have with your health care provider. Document Revised: 03/02/2022 Document Reviewed: 03/02/2022 [employer] Patient Education 2022 [employer]. Follow Up Care 12/29/2021 10:29:34 With:MARIAN GLEASON, Ti Valle, URL Address: [facility] [address], [place] [address]- When: Unknown [facility] 12-08-2021 Note HNO ID: [id number] Author: Shai Daily MD Service: ? Author Type: Physician Type: Progress Notes Filed: 12/08/2021 4:58 PM Note Text: ASSESSMENT/PLAN: 1. Corneal foreign body, right, subsequent encounter - ICD9: V58.89, ICD10: T15.01XD (primary diagnosis) - Healing well Continue: Current Ophthalmic Meds trimethoprim-polymyxin (POLYTRIM) 10,000 unit- 1 mg/mL ophthalmic solution Use 1 Drop in the right eye four times daily for 3 days, then discontinue 2. Amblyopia, left eye - ICD9: 368.00, ICD10: H53.002 - Monitor 3. Essential hypertension - ICD9: 401.9, ICD10: I10 - Manage care with primary care physician Return to clinic PRJohanna Daily MD I have confirmed and edited as necessary the relevant ophthalmic history, review of systems, surgical history, and ophthalmological examination findings as obtained by the ophthalmic technical staff. I have seen and examined Valdemar Cuellar. I have discussed the examination findings, diagnosis, and treatment options with Valdemar Cuellar and/or his family. I have also reviewed and agree with the assessment and plan as stated above and agree with all its relevant components. I gave the patient the opportunity to ask questions about the findings, diagnosis, and treatment options. [facility] 12-04-2021 Note HNO ID: [id number] Author: Shai Daily MD Service: ? Author Type: Physician Type: Progress Notes Filed: 12/04/2021 4:57 PM Note Text: ASSESSMENT/PLAN: 1. Corneal foreign body, right, subsequent encounter - ICD9: V58.89, ICD10: T15.01XD (primary diagnosis) - Healing well Continue: Current Ophthalmic Meds trimethoprim-polymyxin (POLYTRIM) 10,000 unit- 1 mg/mL ophthalmic solution Use 1 Drop in the right eye four times daily. 2. Amblyopia, left eye - ICD9: 368.00, ICD10: H53.002 - Monitor 3. Essential hypertension - ICD9: 401.9, ICD10: I10 - Manage care with primary care physician Return to clinic on Wednesday for follow up Shai Daily MD I have confirmed and edited as necessary the relevant ophthalmic history, review of systems, surgical history, and ophthalmological examination findings as obtained by the ophthalmic technical staff. I have seen and examined Valdemar Cuellar. I have discussed the examination findings, diagnosis, and treatment options with Valdemar Cuellar and/or his family. I have also reviewed and agree with the assessment and plan as stated above and agree with all its relevant components. I gave the patient the opportunity to ask questions about the findings, diagnosis, and treatment options. [facility] 12-03-2021 Note HNO ID: [id number] Author: Shai Daily MD Service: ? Author Type: Physician Type: Progress Notes Filed: 12/03/2021 9:17 AM Note Text: ASSESSMENT/PLAN: 1. Corneal foreign body, right, initial encounter - ICD9: 930.0, E914, ICD10: T15.01XA (primary diagnosis) - FOREIGN BODY REMOVAL, CORNEA W/ SLIT LAMP Current Ophthalmic Meds trimethoprim-polymyxin (POLYTRIM) 10,000 unit- 1 mg/mL ophthalmic solution Use 1 Drop in the right eye four times daily. NEW TODAY 2. Amblyopia, left eye - ICD9: 368.00, ICD10: H53.002 Monitor 3. Essential hypertension - ICD9: 401.9, ICD10: I10 Continue to monitor with primary care physician. Shai Daily MD I have confirmed and edited as necessary the relevant ophthalmic history, review of systems, surgical history, and ophthalmological examination findings as obtained by the ophthalmic technical staff. I have seen and examined Valdemar Cuellar. I have discussed the examination findings, diagnosis, and treatment options with Valdemar Cuellar and/or his family. I have also reviewed and agree with the assessment and plan as stated above and agree with all its relevant components. I gave the patient the opportunity to ask questions about the findings, diagnosis, and treatment options. [facility] 04-28-2021 Note HNO ID: [id number] Author: Shai Daily MD Service: ? Author Type: Physician Type: Progress Notes Filed: 04/28/2021 4:38 PM Note Text: ASSESSMENT/PLAN: 1. Abrasion of left cornea, subsequent encounter - ICD9: V58.89, ICD10: S05.02XD (primary diagnosis) Current Ophthalmic Meds trimethoprim-polymyxin eye drops (POLYTRIM) ophthalmic solution Use 1 Drop in the left eye four times daily for 3 days then discontinue. 2. 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 Pterygium of right eye - ICD9: 372.40, ICD10: H11.001 Monitor 4. Amblyopia, left eye - ICD9: 368.00, ICD10: H53.002 Monitor Shai Daily MD I have confirmed and edited as necessary the relevant ophthalmic history, review of systems, surgical history, and ophthalmological examination findings as obtained by the ophthalmic technical staff. I have seen and examined Valdemar Cuellar. I have discussed the examination findings, diagnosis, and treatment options with Valdemar Cuellar and/or his family. I have also reviewed and agree with the assessment and plan as stated above and agree with all its relevant components. I gave the patient the opportunity to ask questions about the findings, diagnosis, and treatment options. [facility] 04-23-2021 Note HNO ID: [id number] Author: Shai Daily MD Service: ? Author Type: Physician Type: Progress Notes Filed: 04/23/2021 3:15 PM Note Text: ASSESSMENT/PLAN: 1. Abrasion of left cornea, initial encounter - ICD9: 918.1, ICD10: S05.02XA (primary diagnosis) - no foreign body seen. Begin: Current Ophthalmic Meds trimethoprim-polymyxin eye drops (POLYTRIM) ophthalmic solution Use 1 Drop in the left eye four times daily. 2. 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 3. Pterygium of right eye - ICD9: 372.40, ICD10: H11.001 - monitor. Shai Daily MD I have confirmed and edited as necessary the relevant ophthalmic history, review of systems, surgical history, and ophthalmological examination findings as obtained by the ophthalmic technical staff. I have seen and examined Valdemar Cuellar. I have discussed the examination findings, diagnosis, and treatment options with Valdemar Cuellar and/or his family. I have also reviewed and agree with the assessment and plan as stated above and agree with all its relevant components. I gave the patient the opportunity to ask questions about the findings, diagnosis, and treatment options. [facility] Evaluation + Plan note Future Appointments Appointment Date:05/31/2023 03:30:00 PM Scheduled Provider:Ti MAC MD Location:[facility] Appointment Type:URO Office Visit Diagnostic Tests PendingPSA Free & Total 03/15/23 [facility] Evaluation + Plan note Future Appointments Appointment Date:12/06/2023 03:00:00 PM Scheduled Provider:Ti MAC MD Location:[facility] Appointment Type:URO Office Visit Diagnostic Tests PendingPSA Total 05/31/23 [facility] Evaluation + Plan note Future Appointments Appointment Date:12/24/2023 11:00:00 AM Scheduled Provider:Ti MAC MD Location:[facility] Appointment Type:URO Office Visit Appointment Date:01/17/2024 05:00:00 PM Scheduled Provider:Nehemiah Moffett MD Location:[facility] Appointment Type:FM Open Diagnostic Tests PendingReference Lab Notification 12/17/23 Future Scheduled TestsPSA Screen, Total 12/13/23CBC w/ Auto Diff 12/13/23Comprehensive Metabolic Panel 12/13/23Lipid Panel 12/13/23CT Chest, Low Dose Screening 12/13/23 [facility] Evaluation + Plan note Future Appointments Appointment Date:01/17/2024 05:00:00 PM Scheduled Provider:Nehemiah Moffett MD Location:[facility] Appointment Type:FM Open Appointment Date:07/03/2024 03:00:00 PM Scheduled Provider:Ti MAC MD Location:[facility] Appointment Type:URO Office Visit Diagnostic Tests PendingPSA Total 04/20/24 Future Scheduled TestsCT Chest, Low Dose Screening 12/13/23 [facility] Evaluation + Plan note Future Appointments Appointment Date:07/17/2024 05:45:00 PM Scheduled Provider:Nehemiah Moffett MD Location:[facility] Appointment Type:FM Open Future Scheduled TestsUS Abdominal Aorta screening for AAA 01/17/24CT Chest, Low Dose Screening 12/13/23CT Chest, Low Dose Screening 01/17/24 [facility] Hospital course Narrative No data available for this section [facility] [facility] Discharge instructions No data available for this section [facility] Progress note No data available for this section [facility] Summary Purpose Family History No Family History Records FoundNo Family History Records Found No data available for this section No Family History Records Found No data available for this section No data available for this section No Family History Records Found Advance Directives No Advanced Directives Records FoundNo Advanced Directives Records FoundNo Advanced Directives Records FoundNo Advanced Directives Records Found Additional Source Comments (unrecognized sect ion and content) No Status Records FoundNo Status Records FoundNo Status Records FoundNo Status Records Found INFORMATION SOURCE (unrecogn ized section and content) DATE CREATED AUTHOR 12/03/2021 [facility] DATE CREATED AUTHOR AUTHOR'S ORGANIZ ATION 12/10/2021 [facility] DATE CREATED AUTHOR AUTHOR'S ORGANIZ ATION 12/18/2023 [facility] DATE CREATED AUTHOR AUTHOR'S ORGANIZ ATION 10/08/2024 [facility] Patient Care team informatio n (unrecognized section and content) Personnel Name: Zuhair GLEASON, Nehemiah Gamez Address: Address: [address] [place], [place] [address] FOR RECORDS PERTAINING TO PATIENTS WHO ARE OR HAVE BEEN ENROLLED IN A CHEMICAL DEPENDENCY/SUBSTANCEABUSE PROGRAM, SOME INFORMATION MAY BE OMITTED. This clinical summary was aggregated from multiple sources. Caution should be exercised in using it in the provision of clinical care. This summary normalizes information from multiple sources, and as a consequence, information in this document may materially change the coding, format and clinical context of patient data. In addition, data may be omitted in some cases. CLINICAL DECISIONS SHOULD BE BASED ON THE PRIMARY CLINICAL RECORDS. [facility] [employer] [facility] provides no warranty or guarantee of the accuracy or completeness of information in this document.
[2024-10-26] MEDS: LACTATED RINGER'S SOLUTION 1,000 ML 50 ML IV (11:23)
[2024-10-26] MEDS: IPRATROPIUM/ALBUTEROL SULFATE 3 ML AMPUL.NEB IH (11:37)
[2024-10-26] MEDS: LEVOFLOXACIN IN DEXTROSE 5 % 500 MG/100 ML PREMIX 100 MG IV (12:09)
--- NOTE | 2024-10-26 13:52 | PM.URSON ---
Urology Surgery Operative Note Operative Note Procedure Date: 10/26/24 Time Out Performed: yes Pre-op Diagnosis: 1. Bladder tumor. 2. BPH with LUTS Post-op Diagnosis: same as pre-op Procedures performed: 1. Urethral meatal dilation with [place] sounds to 28 Palestinian. #2. Cystoscopy. 3. Transurethral resection of the prostate. 4. Transurethral resection of bladder tumor approximately 1 cm. Anesthesia: GETA Primary Surgeon: Ti Mac Complications: None Estimated blood loss (mL): 15 Findings: 1. Small bladder tumor anteriorly. 2. Tight obstruction from lateral lobes of the prostate. 3. High-grade bladder damage. Specimens: 1. Bladder tumor. 2. Prostate chips. Drains: 22 Palestinian three-way coud? Erwin catheter in the bladder taped to traction and CBI Indications for Procedures: This gentleman has rather significant bladder outlet obstructive symptoms despite max medications including Flomax and dutasteride. Endoscopically, we found a small bladder tumor anteriorly. He also had obstructing lateral lobes and a high-grade bladder damage. He was desirous for a TURP. He has signed an informed consent after risks were explained. Some of these risks include bleeding, infection, anesthesia, urinary incontinence both temporary and permanent, retrograde ejaculation, erectile dysfunction and possible need for further operations to name a few. Detailed description of Procedure: The patient was brought to the operating room and placed on the operating room table in the supine position. SCDs were placed on the lower extremities and turned on and functioning during the entire case. Timeout was done by all parties in the room. We all agreed upon the patient's identification and the planned procedures for this patient. Genn. anesthesia was then administered. The patient was then repositioned into the modified dorsal lithotomy position. All pressure points were satisfactorily padded. Genitalia were sterilely prepped and draped in usual fashion. I started by attempting to pass a 26 Palestinian Olympus resectoscope with a standard bipolar loop electrode per urethra but was unable due to meatal stenosis. I then used Blayne sounds and dilated his urethral meatus up to 28 Palestinian. I then was able to pass the resectoscope into the bladder. The ureteral orifices were marked with the loop electrode. I then uniformly and deeply shaved the tumor out. This was located anteriorly. The resection bed was coagulated. I then sent the tissue separately labeled bladder tumor. I then began the prostate resection. I started on the median lobe and resected this down to the bladder neck level. I then resected posteriorly from the bladder neck to the Veru level. The capacious left lateral lobe was then taken down in a similar fashion as was the right side. The anterior tissue was bulky and this was also resected. I then brought the scope back to the apex and open this up. This was actually tightly obstructing. The coagulating rollerball was then used to coagulate the entire resection bed. The Ilich was used to get all the prostate chips out of the bladder and these were sent for permanent sections. Upon completion, with the scope at the apex, the prostatic urethra and bladder neck were now wide open. There was no bleeding. There were no chips remaining in the bladder. The scope was then removed. I then placed a 22 Palestinian three-way coud? Erwin catheter in the bladder. It was manually irrigated with a Jacoby syringe to verify placement. 30 cc of fluid was placed in the balloon. It was taped to traction and CBI was started. It irrigated clear. The anesthetic was reversed. He was then transferred to a [facility] bed and wheeled to PACU in stable condition. Urinary Catheter Management Urinary Catheter Management 3-way Urethral: Cath placed during this visit: no
[2024-10-26] MEDS: SOLIFENACIN SUCCINATE 10 MG TABLET PO (14:04)
[2024-10-26] MEDS: HYDROMORPHONE HCL 0.5 MG/0.5 ML SYRINGE IV (14:08)
[2024-10-26] MEDS: 0.9 % SODIUM CHLORIDE 1,000 ML 80 ML IV (14:13)
--- NOTE | 2024-10-26 14:34 | PC.NURSE ---
Having bladder spasms; medicated with Dilaudid as ordered and given Vesicare by mouth aas ordered
[2024-10-26] MEDS: HYDROCODONE/ACET 5-325 MG TABLET 1 TAB PO (15:21)
[2024-10-26] MEDS: SODIUM CHLORIDE IRRIG SOLUTION 3,000 ML 3000 ML IRR ×3 (15:21→18:46)
[2024-10-26] MEDS: CEFAZOLIN SODIUM/DEXTROSE,ISO 1 GM/50 ML PREMIX IV ×2 (17:38→23:04)
[2024-10-27] VITALS: BP 119/66; PULSE 64; TEMP 36.7; O2SAT 95
[2024-10-27] MEDS: SODIUM CHLORIDE IRRIG SOLUTION 3,000 ML 3000 ML IRR (03:04)
[2024-10-27] MEDS: 0.9 % SODIUM CHLORIDE 1,000 ML 80 ML IV (03:04)
[2024-10-27 04:00] VITALS: BP 125/69; PULSE 65; TEMP 36.6; O2SAT 94
--- NOTE | 2024-10-27 05:05 | PC.NURSE ---
Continuous bladder irrigation running very slowly, weaned to off at this time. Traction tape remvoed from left thigh at this time.
--- NOTE | 2024-10-27 05:50 | PC.NURSE ---
Patient unhooked from CBI tubing. Cath plug put in place. Patient switched to leg bag at this time. UP and walked down to room 225 and back to his room without difficulty. Patient in chair at this time
[2024-10-27 07:51] VITALS: BP 129/72; PULSE 62; TEMP 36.5; O2SAT 96
[2024-10-27] MEDS: SOLIFENACIN SUCCINATE 10 MG TABLET PO (08:30)
[2024-10-27] MEDS: AMLODIPINE BESYLATE 5 MG TABLET PO (08:31)
== END 2024-10-27 09:08 | disposition home or self-care (01) ==
LOC: SURGOUT 13:47 → MS 14:48
PROVIDERS: PCP Family Medicine; Visit Provider Urology
PROC: (CPT 910; principal; 2024-10-26 12:00)
DX: N40.1 Benign prostatic hyperplasia with lower urinary tract symptoms (principal); D41.4 Neoplasm of uncertain behavior of bladder; E78.5 Hyperlipidemia, unspecified; R97.20 Elevated prostate specific antigen [PSA]; I10 Essential (primary) hypertension; F17.200 Nicotine dependence, unspecified, uncomplicated; F32.A Depression, unspecified; J44.9 Chronic obstructive pulmonary disease, unspecified; K21.9 Gastro-esophageal reflux disease without esophagitis; K44.9 Diaphragmatic hernia without obstruction or gangrene; N35.911 Unspecified urethral stricture, male, meatal
CPT/HCPCS: 52224; 52601; 36415; 88305; 94640; J0690; J1100; J1171; J2250; J2405; J2704; J3010

== ENCOUNTER 2025-08-07 13:22 | Outpatient (OUT) | payer OTHER, SELFPAY ==
--- OUTSIDE RECORDS SUMMARY | 2025-08-07 13:29 | XMS_ITS | CCD ---
Demographics Address [address] [place] [address] Preferred Language en Marital Status Jainism Affiliation Unknown Race White Ethnic Group Not or Lati no Author Organization [facility] Care Team Providers Care Regional Facilities Manager Name Role Phone DR TI MAC Attending Unavailable MARIAN, DR RIOS Consulting Unavailable MARIAN, DR ROIS Admitting Unavailable DR TAMIA JARAMILLO Primary Care Unavailable Nehemiah Moffett Primary Care Physician Clint GLEASON, Tamia Manzano Primary Care Provider [phone] Ti Mac MD Attending Provider Tamia Jaramillo Primary Care Unavailable Ti Mac Attending Unavailable Ti Mac Admitting Unavailable MD Nehemiah Moffett Attending Unavailable MARIAN, Ti Valle Attending Unavailable DEANGELO ANN Attending Unavailable MAC, Ti Valle Attending Unavailable MAC, Ti Valle Attending Unavailable MAC, Ti Valle Attending Unavailable MARISSADEANGELO LEVINE Admitting Unavailable DEANGELO ANN Attending Unavailable MARIAN, Ti Valle Attending Unavailable MARIAN, Ti Valle Attending Unavailable MD Nehemiah Moffett Attending Unavailable MARIAN, Ti Valle Admitting Unavailable MARIAN, Ti Valle Attending Unavailable MD Nehemiah Moffett Admitting Unavailable MD Nehemiah Moffett Attending Unavailable Ti MAC Attending Unavailable Nehemiah Moffett Admitting Unavailable Nehemiah Moffett Attending Unavailable Palak Nuno Attending Unavailable Willis ABARCA Attending Unavailable Palak Nuno Referring Unavailable Palak Nuno Attending Unavailable Medications Current Medications MedicationDrug Class(es)DatesSig (Normalized)Sig (Original)amLODIPine 5 mg oral tablet (12 sources)Dihydropyridine Calcium Channel BlockerStart: 97-73-1944dafl 1 tablet by mouth once dailyamLODIPine 5 mg Tab See Instructions, TAKE 1 TABLET BY MOUTH EVERY DAY, # 90 tab(s), Refills(s) 2, Pharmacy: [facility]/pharmacy #[id number], 177, cm, 07/17/24 17:45:00 EDT, Height/Length Dosing, 79.4, kg, 07/17/24 17:45:00 EDT, Weight Dosing Start Date: 07/17/24 Status: Ordered Quantity: 90.0 Unit: tab(s) Repeat number: 3Start: 72-20-7171dqpc 1 tablet by mouth once daily amLODIPine 5 mg Tab See Instructions, TAKE 1 TABLET BY MOUTH EVERY DAY, # 90 tab(s), Refills(s) 2, Pharmacy: [facility] STORE [id number], 177, cm, 01/17/24 17:03:00 EDT, Height/Length Dosing, 81.1, kg, 01/17/24 17:03:00 EDT, Weight Dosing Start Date: 06/12/24 Status: OrderedStart: 50-05-4847vnbk 1 tablet by mouth once daily amLODIPine 5 mg Tab 5 mg = 1 tab(s), Oral, Daily, # 90 tab(s), Refills(s) 1, [id number] 177, cm, 12/13/23 17:30:00 EDT, Height/Length Dosing, 81.6, kg, 12/13/23 17:30:00 EDT, Weight Dosing Start Date: 12/13/23 Status: OrderedStart: 06-63-6115mbGIXCCjgz 5 mg Tab Refills(s) 0 Start Date: 03/15/23 Status: Orderedatorvastatin 40 mg oral tablet (2 sources)HMG-CoA Reductase InhibitorStart: 19-09-9673nowd 1 tablet by mouth once dailyLipitor 40 mg Tab 40 mg = 1 tab(s), Oral, Daily, # 90 tab(s), Refills(s) 0, [id number], 177, cm, 01/15/25 17:43:00 EDT, Height/Length Dosing, 78.1, kg, 01/15/25 17:43:00 EDT, WeightDosing Start Date: 01/17/25 Status: Ordered Quantity: 90.0 Unit: tab(s) Repeat number: 1 Indications: Nicotine dependence, cigarettes, uncomplicated;doxycycline hyclate 100 mg oral capsule (2 sources)Tetracycline-class DrugStart: 07-03-2024 End: 24-00-6807ckiw 1 capsule by mouth twice dailydoxycycline hyclate 100 mg Cap 100 mg = 1 cap(s), Oral, BID, X 4 week(s), # 56 cap(s), Refills(s) 0, [id number], 177, cm, 07/03/24 15:37:00 EDT, Height/Length Dosing, 80, kg, 07/03/24 15:37:00 EDT, Weight Dosing Start Date: 07/03/24 Stop Date: 07/31/24 Status: OrderedStart: 03-15-2023 End: 34-36-0493ietq 1 capsule by mouth twice dailydoxycycline hyclate 100 mg Cap 100 mg = 1 cap(s), Oral, BID, Wear sun protection and take probiotics during the duration of this course., X 21 day(s), # 42 cap(s), Refills(s) 0, [id number], 177, cm, 03/15/23 15:25:00 EDT, Height/Length Dosing, 82, kg, 03/15/23 15:... Start Date: 03/15/23 Stop Date: 04/05/23 Status: Ordered dutasteride 0.5 mg oral capsule (3 sources)5-alpha Reductase InhibitorStart: 13-57-9329mvhn 1 capsule by mouth once dailydutasteride 0.5 mg Cap 0.5 mg = 1 cap(s), Oral, Daily, # 30 cap(s), Refills(s) 11, [id number], 177, cm, 12/24/23 12:01:00 EDT, Height/Length Dosing, 80, kg, 12/24/23 12:01:00 EDT, Weight Dosing Start Date: 12/24/23 Status: Orderedtamsulosin hydrochloride 0.4 mg oral capsule (10 sources)alpha-Adrenergic BlockerStart: 07-03-2024 End: 02-35-9362heia 1 capsule by mouth twice dailytamsulosin 0.4 mg Cap 0.4 mg = 1 cap(s), Oral, BID, X 30 day(s), # 60 cap(s), Refills(s) 11, [id number], 177, cm, 07/03/24 15:37:00 EDT, Height/Length Dosing, 80, kg, 07/03/24 15:37:00 EDT, Weight Dosing Start Date: 07/03/24 Stop Date: 06/28/25 Status: Ordered Quantity: 60.0 Unit: cap(s) Repeat number: 12Start: 03-15-2023 End: 60-98-2655nzwx 1 capsule by mouth twice dailyFlomax 0.4 mg Cap 0.4 mg = 1 cap(s), Oral, BID, X 90 day(s), # 180 cap(s), Refills(s) 3, Pharmacy: [facility]/pharmacy #[id number], 177, cm, 03/15/23 15:25:00 EDT, Height/Length Dosing, 82, kg, 03/15/23 15:25:00 EDT, Weight Dosing Start Date: 03/15/23 Stop Date: 03/09/24 Status: Ordered Completed/Discontinued Medications MedicationDrug Class(es)DatesSig (Normalized)Sig (Original)ciprofloxacin 500 mg oral tablet (1 source)Quinolone AntimicrobialStart: 19-36-0342pxpd 1 tablet by mouth once dailyCipro 500 mg Tab 500 mg = 1 tab(s), Oral, Daily, Take 1 tablet the day before the procedure and 1 tablet after the procedure, # 2 tab(s), Refills(s) 0, Pharmacy: [facility]/pharmacy #[id number], 177, cm, 07/17/2417:45:00 EDT, Height/Length Dosing, 79.4, kg, 07/17/24 17:45:00 EDT, Weight Dosing Start Date: 09/22/24 Status: Ordered Problems Problem ClassificationProblemDateDocumented DateEpisodic/ChronicAbdominal hernia (12 sources)Hiatal ibdozl29-56-8706VnbqqeojJbzpmwz disorders (12 sources)Panic -31-4132UldaldnEutrhxmq mellitus without complication (1 source)Zharvsbmpgspk62-08-0718EpetziccFrkxciemr of lipid metabolism (12 sources)Oomoqjvegevugwokrfxs26-38-5228RuesrezJenyhlbyqn disorders (12 sources)Acosta's leutpeqya89-54-9960SlhfhnfQrkdrrija hypertension (12 sources)Hypertensive jcamsorp72-66-5650PhukmqgSlmqguypzhkbb symptoms and ill-defined conditions (13 sources)Nocturia; Translations: [Nocturia]Onset: 321022-29-3681 EpisodicHyperplasia of prostate (20 sources)Benign prostatic hyperplasia with lower urinary tract symptoms; Translations: [Benign prostatic hypertrophy with outflow obstruction]Onset: 18-30-7592SabhmwbJigcpgwtbbhq conditions of male genital organs (16 sources)Prostatitis; Translations: [Inflammatory disease of prostate, unspecified]Onset: 34-46-1127FoyzgwnoRxku disorders (12 sources)Depressive janahwhm89-64-5117PbtdapjSbxqh diseases of bladder and urethra (2 sources)Disorder of bladder; Translations: [Bladder disorder, unspecified] Onset: 44-90-1943SurprffZxnvc diseases of bladder and urethra (4 sources)Lesion of nnvhyns49-24-5433YoampagHnjlw diseases of bladder and urethra (1 source)Male urethral stricture; Translations: [Unspecified urethral stricture, male, unspecified site]Onset: 36-90-9413YsjipvsoGnksc diseases of bladder and urethra (2 sources)Urethral twpqycuhv83-63-8691YrlrxrdcZrtqg male genital disorders (1 source)H/O: male genital disorder; Translations: [Personal history of other diseases of male genital organs]Onset: 62-83-6204WjxwkgwxBurwm male genital disorders (9 sources)History of sujyhytvzah54-86-5645OurufnrxKrglg screening for suspected conditions (not mental disorders or infectious disease) (19 sources)Elevated prostate specific antigen [PSA]; Translations: [Raised prostate specific antigen]Onset: 13-77-4815UfaufxapPkidbamu codes; unclassified (1 source)Family history of malignant neoplasm of prostate; Translations: [FAMILY HX MALIG NEOPLASM PROSTATE]Onset: 24-27-5028GcviyidtWelfkxnc codes; unclassified (6 sources)Family history of cancer; Translations: [Family history of malignant neoplasm of prostate]Onset: 90-82-2014CorfzjswFeywrqiw codes; unclassified (12 sources)Family history of prostate kcshoo97-25-8230EetgqtpdRxxmmizhw-lxtgvur disorders (19 sources)Smoker; Translations: [Nicotine dependence]27-29-4965Ulgbwah Unclassified (17 sources)Patient encounter kxqlgi90-92-2662Ujywrvgtpaxu (3 sources)Body mass index 20-24 - gipytc36-35-1697 Results Test NameValueInterpretationReference RangeFacilityFafairview hospital Medicine Office/Clinic Noteon 96-06-8059Vzifcl Medicine Office/Clinic NoteFafairview hospital Medicine Office/Clinic Note HPI Staff Former DR Moffett pt. Presenting today for chronic care follow up & to establish w/Dr Nuno. Health Maintenance: Colonoscopy: DUE PSA: 0.3 ng/mL (02/26/25 16:58:00) Last Labs:01/15/25 Patient is here for follow up on hypertension. How often are you checking your blood pressure? _only ehen it feels high What are your average readings? higher when at home Yearly BMP: _ BUN: 15 mg/dL (01/15/25 18:00:00) Calcium Lvl: 8.9 mg/dL (01/15/25 18:00:00) Chloride: 105 mmol/L (01/15/25 18:00:00) CO2: 26 mmol/L (01/15/25 18:00:00) Creatinine: 0.9 mg/dL (01/15/25 18:00:00) eGFR: 95 mL/min/1.73 m2 (01/15/25 18:00:00) Glucose Lvl: 99 mg/dL (01/15/25 18:00:00) Potassium Lvl: 4.1 mmol/L (01/15/25 18:00:00) Sodium Lvl: 139 mmol/L (01/15/25 18:00:00) Patient is here for follow up on hyperlipidemia: Do you have side effects from the medication? no Refill needed?: _ Yearly Lipid labs: _ Chol: 213 mg/dL High (01/15/25 18:00:00) HDL: 51 mg/dL (01/15/25 18:00:00) LDL Direct: 131 mg/dL High (01/15/25 18:00:00) Tri mg/dL High (01/15/25 18:00:00) VLDL: 41 mg/dL High (01/15/25 18:00:00) Follow up for Mental Status: Medication adherence- Yes, takes medication as prescribed Medication refill needed: _ Suicidal thoughts-Not at this time Most recent JONATAN:2 Most recent PHQ:0 refills: amplodipine History of Present Illness Patient is a 65-year-old male with past medical history of hyperlipidemia, BPH, and current smoker who who presented to [facility]. Patient reported he is overall feeling well with the exception of having a stiff neck and left handpain. He denied any acute trauma. 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 Patient has self discontinued statin medication due to nausea when taking it. Review of Systems PHQ Score Initial Depression Screen Score: 0 SCORE Pertinent review of systems is addressed in the HPI. Physical Exam Vitals & Measurements T: 36.8 ???C(Temporal Artery) HR: 72(Peripheral) RR: 16 BP: 150/86 SpO2: 97% HT: 177 cm HT: 70 in WT: 81.1 kg WT: 178.795 lb BMI: 25.89 General: Alert and oriented, in no acute distress HEENT: - Normocephalic, atraumatic - EOMI, conjunctiva WNL Cardiovascular: Regular rate and rhythm, no murmur/rubs/gallops, no lower extremity edema Respiratory: Lungs clear to auscultation BL without wheezing/rales/rhonchi, normal respiratory effort Abdomen: Soft, nontender, nondistended, normoactive bowel sounds, no organomegaly : No suprapubic tenderness Neurologic: Grossly intact, normal gait MSK: Left hand pain and swelling at anatomic snuffbox Skin: Warm, dry, intact; no rashes Psych: Normal mood, normal affect Assessment/Plan 1. HTN (hypertension) (I10: Essential (primary) hypertension) Chronic. Currently uncontrolled due to patient running out of medication, refilled amlodipine. 2. Hyperlipemia (E78.5: Hyperlipidemia, unspecified) Chronic, uncontrolled. Discontinued statin due to intolerance, start ezetimibe 10 mg daily. 3. Left hand pain (M79.642: Pain in left hand) Acute Hand x-ray ordered for further investigation. 4. Neck stiffness (M43.6: Torticollis) Chronic Advised conservative measures with sleep position modification, IcyHot patches, lidocaine patches, and ice/heat as needed. May consider PT or pain management referral if no improvement. 5. Tobacco use (Z72.0: Tobacco use) Patient is not ready to quit smoking at this time Due for a AAA screening U/S this year, will order at next appointment. 6. Screening for lung cancer (Z12.2: Encounter for screening for malignant neoplasm of respiratory organs) Low-dose chest CT ordered. 7. Encounter for screening for malignant neoplasm of rectum (Z12.12: Encounter for screening for malignant neoplasm of rectum) Referral to general surgery placed for screening colonoscopy. Patient hopes to get this done at [facility]. 8. BMI 25.0-25.9,adult (Z68.25: Body mass index [BMI] 25.0-25.9, adult) Follow-up as needed. 9. Overweight (E66.3: Overweight) Follow-up as needed. Follow-up With When Contact Information Palak Nuno DO, RICKY, PED In 1 month Additional Instructions: Problem List/Past Medical History Ongoing Acosta's esophagus BPH with urinary obstruction Depression Elevated cholesterol Elevated PSA Family history of prostate cancer in father Hiatal hernia History of prostatitis HTN (hypertension) Hyperlipemia Nocturia Panic attack Physical exam Prostatitis Smoker Tobacco use Urethral meatal stenosis Historical No qualifying data Procedure/Surgical History Cystoscopy (10/26/2024), TURBT - Transurethral resection of bladder tumor (10/26/2024), TURP - Transurethral resection of prostate (10/26/2024), Cystoscopy (09/20/2003), Colonoscopy. Medications amLODIPine 5 mg Tab, See Instructions, 3 refills Zetia 10 (more content not included)...[facility] CenterComment on above:Result Comment: Electronically Signed By: Palak Nuno DO\.br\Date and Time Signed: 07/11/25 17:34 EDTAmbulatory Visit Summaryon 07-10-2025 Ambulatory Visit SummaryAmbulatory Visit Summary VALDEMAR CUELLAR :1960 Visit Date:07/10/2025 Ambulatory Visit Instructions Your Diagnosis HTN (hypertension) Hyperlipemia BMI 25.0-25.9,adult Overweight Tobacco use Screening for lung cancer Left hand pain Your Care Team Attending Physician - Palak Nuno DO Primary Care Physician - Palak Nuno DO This Is Your Medications List amlodipine (amLODIPine 5 mg Tab) ezetimibe (Zetia 10 mg Tab) [Image Removed: STOP]Stop taking these medications atorvastatin (Lipitor 40 mg Tab) Procedures Performed Cystoscopy (10/26/2024), TURBT - Transurethral resection of bladder tumor (10/26/2024), TURP - Transurethral resection of prostate (10/26/2024), Cystoscopy (09/20/2003), Colonoscopy. Discharge Vitals Temperature (Temporal Artery) 36.8 ???C Heart Rate (Peripheral) 72 Respiratory Rate 16 Blood Pressure 150/86 Height 177 cm Height 70 in Weight 81.1 kg Weight 178.795 lb BMI 25.89 What to do next Scheduled Follow-Up Appointments Wednesday 4:40 PM EST With: Palak Nuno DO Where: [facility] [address] [address]- Wednesday 3:00 PM EST With: MARIAN GLEASON, Ti Valle Where: [facility] [address] [address]- You Need to Schedule the Following Appointments Follow Up with Palak Nuno DO, RICKY, PED When: In 1 month Where: Medications What How Much When Why Instructions New ezetimibe (Zetia 10 mg Tab) 1 Tablets By Mouth Every day Hyperlipemia Refills: 3 Pickup at [facility]/pharmacy #[id number] Unchanged amlodipine (amLODIPine 5 mg Tab) See instructions TAKE 1 TABLET BY MOUTH EVERY DAY Pick[facility]at [facility]/pharmacy #[id number] Pharmacy Information [facility]/pharmacy #[id number]: [address], [place] [id number] [phone] What How Much When Why Comments Stop Taking atorvastatin (Lipitor 40 mg Tab) 1 Tablets By Mouth Every day Cigarette nicotine dependence Allergies No Known Allergies Problems Ongoing - Any problem that you are currently receiving treatment for. Acosta's esophagus BPH with urinary obstruction Depression Elevated cholesterol Elevated PSA Family history of prostate cancer in father Hiatal hernia History of prostatitis HTN (hypertension) Hyperlipemia Nocturia Panic attack Physical exam Prostatitis Smoker Tobacco use Urethral meatal stenosis Patient Survey You may receive a survey via text or e-mail asking about your office visit. Please share your experience with us by completing your survey. We appreciate your feedback and thank you for choosing us for your care. Patient Portal You may access all of your results and other medical record information on our secure patient portal. If you are not signed up for this yet, please contact [place] at [phone] to get signed up today. Language Information Language assistance services are available as needed. NormalFisher Medstar Good Samaritan HospitalPSA Totalon [id number] Total 0.3 ng/mLNormal0.1-3.5Fisher [facility] Samaritan HospitalComment on above:Result Comment: The concentration of PSA determined by different manufacturers can vary due to differences in assay methods and reagent specificity. Values obtained from different assay methods cannot be used interchangeably. The methodology used for this result was chemiluminescence using [employer] Hybritech PSA reagent.Performed By: #### [id number] #### [facility] [address], [place] [address]Nzzqtdeopu Visit Summaryon [id number] Visit Summary Ambulatory Visit Summary VALDEMAR CUELLAR :1960 Visit Date:02/26/2025 Ambulatory Visit Instructions Your Diagnosis BPH with urinary obstruction Elevated PSA Urethral meatal stenosis Lesion of bladder Family history of prostate cancer in father Your Care Team Attending Physician - Ti MAC MD Primary Care Physician - Zuhair GLEASON, Nehemiah Manzano. This Is Your Medications List Contact prescribing physician if questions or concerns amlodipine (amLODIPine 5 mg Tab) atorvastatin (Lipitor 40 mg Tab) [Image Removed: STOP]Stop taking these medications tamsulosin (tamsulosin 0.4 mg Cap) Procedures Performed Cystoscopy (10/26/2024), TURBT - Transurethral resection of bladder tumor (10/26/2024), TURP - Transurethral resection of prostate (10/26/2024), Cystoscopy (09/20/2003), Colonoscopy. Discharge Vitals Temperature (Temporal Artery) 36.6 ???C Heart Rate (Peripheral) 70 Respiratory Rate 16 Blood Pressure 127/69 Height 177 cm Height 70 in Weight 79.4 kg Weight 175.047 lb BMI 25.34 What to do next Scheduled Follow-Up Appointments Wednesday 5:00 PM EDT With: Zuhair GLEASON, Nehemiah Gamez Where: [address] [address]- You Need to Schedule the Following Appointments Follow Up with MARIAN GLEASON, MIROSLAVA Reed When: Where: [facility] [address] [place] [address]- Medications What How Much When Why Instructions Unchanged amlodipine (amLODIPine 5 mg Tab) See instructions TAKE 1 TABLET BY MOUTH EVERY DAY Contact prescribing physician if questions or concerns Unchanged atorvastatin (Lipitor 40 mg Tab) 1 Tablets By Mouth Every day Cigarette nicotine dependence Contact prescribing physician if questions or concerns What How Much When Comments Stop Taking tamsulosin (tamsulosin 0.4 mg Cap) 1 Capsules By Mouth 2 times a day Duration: 30 Days Allergies No Known Allergies Problems Ongoing - Any problem that you are currently receiving treatment for. Acosta's esophagus BMI 24.0-24.9, adult BPH with urinary obstruction Depression Elevated cholesterol Elevated PSA Family history of prostate cancer in father Hiatal hernia History of prostatitis HTN (hypertension) Nocturia Panic attack Physical exam Prostatitis Smoker Urethral meatal stenosis Patient Survey You may receive a survey via text or e-mail asking about your office visit. Please share your experience with us by completing your survey. We appreciate your feedback and thank you for choosing us for your care. Education Materials Urethral Stricture Urethral stricture is when the tube that drains pee (urine) from the bladder out of the body (urethra) becomes too narrow. The urethra can become narrow because of scar tissue, infection, surgery, hayley injury. This can make it difficult to pee (urinate). In females, the urethra opens above the vaginal opening. In males, the urethra opens at the tip of the penis, and the urethra is much longer than it is in females. Because of the length of the male urethra, urethral stricture is much more common in males. What are the causes? In males and females, common causes of urethral stricture include: ??? Urinary tract infection (UTI). ??? Sexually transmitted infection (STI). ??? Using a soft tube in the urethra to drain pee from the bladder (urinary catheter). ??? Urinary tract surgery. In males, common causes of urethral stricture include: ??? A severe injury to the pelvis. ??? Prostate surgery. ??? Injury to the penis. In many cases, the cause of urethral stricture is not known. What increases the risk? You are more likely to develop this condition if you: ??? Are male. Males who have had prostate surgery are at risk of developing this condition. ??? Use a urinary catheter. ??? Have had urinary tract surgery. What are the signs or symptoms? The main symptom of this condition is trouble peeing. This may cause decreased pee flow, dribbling,or spraying of pee. Other symptom of this condition may include: ??? Frequent UTIs. ??? Blood in the pee. ??? Pain when peeing. ??? Swelling of the penis in males. ??? Not being able to pee. How is this diagnosed? This condition may be diagnosed based on: ??? Your medical history and a physical exam. ??? Tests of your pee to check for infection or bleeding. ??? X-rays. ??? Ultrasound. ??? Retrograde urethrogram. With this test, a dye is injected into the urethra and then an X-ray is taken. ??? Urethroscopy. This is when a thin tube with a light and camera on the end (urethroscope) is used tolook at the urethra. ??? A CT scan or MRI. How is this treated? This condition is treated with surgery or other procedures. The type of surgery that you have depends on the severity (more content not included)...[facility] CenterUrology Office/Clinic Noteon [id number] Office/Clinic NoteUrology Office/Clinic Note Chief Complaint 4 month follow up with PVR HPI Staff 65 yr old male here for 3 mth f/u w/ PVR Previous Dx: Lesion on Bladder, BPH with urinary obstruction, Elevated PSA, Prostatitis, Family history of prostate cancer in father S/P TURBT/TURP 10/26/24 *Flomax 0.4mg bid PSA 11/29/21 - 1.43 03/09/23 - 3.05 (had infection at that time) 05/27/23 - 2.08 12/17/23 - 1.82 PVR 07/03/24 - 196 mL. IPSS: 13, OUSMANE: 15 Denies abdominal pain/flank pain, denies visible blood. The burning has been getting better PVR: 55 ml History of Present Illness Tests reviewed: UA, second opinion path I have reviewed the previous health record [...] See HPI. Physical Exam Vitals & Measurements T: 36.6 ???C(Temporal Artery) HR: 70(Peripheral) RR: 16 BP: 127/69 HT: 70 in HT: 177 cm WT: 79.4 kg WT: 175.047 lb BMI: 25.34 General Appearance: alert, no distress, well nourished, well developed male. Assessment/Plan OUSMANE 15. 1. BPH with urinary obstruction (N40.1: Benign prostatic hyperplasia with lower urinary tract symptoms) PVR (cc): 07/03/24 - 196 02/26/25 - 55 S/p urethral meatal dilation with Blayne sounds to 28Fr, cysto, TURP, TURBT 1 cm 10/26/24. Path ~prostate glandular and stromal hyperplasia. Results reviewed with pt. UA neg. IPSS 13. Taking Flomax 0.4 mg bid. Reports concentrated urine. Stressed the importance of high fluid intake. Emptying improved after TURP. -Stop Flomax 2. Elevated PSA (R97.20: Elevated prostate specific antigen [PSA]) PSA: 05/27/19 - 2.01 11/24/19 - 1.89 06/15/20 - 2.14 11/22/20 - 2.46 11/29/21 - 1.43 03/09/23 - 3.05 (had infection at that time) 05/27/23 - 2.08 12/17/23 - 1.82 Enough time has passed since TURP for blood level. Follow up 6 mos with PSA F&T (pending on PSA drawn IO today) or sooner if needed. Pt understands and agrees with plan. -PSA can be drawn IO today 3. Urethral meatal stenosis (N35.919: Unspecified urethral stricture, male, unspecified site) S/p urethral meatal dilation with [place] sounds to 28Fr, cysto, TURP, TURBT 1 cm 10/26/24. Reports spray stream up to three ways, hasn't had this before. This is from his narrow meatus. Offered to have pt use dilator to dilate himself at home/maintain patency of channel. Pt wishes to cont to monitor at this time. -Cont sx monitoring 4. Lesion of bladder (N32.9: Bladder disorder, unspecified) Cysto 09/25/24 - 1 cm papillary bladder lesion on the anterior right bladder wall surface. Does notappear as a classic TCC lesion. S/p urethral meatal dilation with Blayne sounds to 28Fr, cysto, TURP, TURBT 1 cm 10/26/24. Erwin removed 10/30/24. 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 Resolved. Reviewed second opinion path which was neg for malignancy, shows chronic inflammation of the bladder (which was resected). It is possible that this can recur. -Cont sx monitoring 5. Family history of prostate cancer in father (Z80.42: Family history of malignant neoplasm of prostate) Father, also had bladder cancer. Increased risk given direct family history. Follow-up With When Contact Information MARIAN GLEASON, Ti Valle, URL [facility] [address], [place] [address]- Additional Instructions: 6 mos with PSA F&T (pending on PSA drawn IO today) Patient Education Urethral Stricture I, Tamela Lane, personally scribed for Dr. Mac on 02/26/2025 16:46:59. . Documentation recorded by the scribe, Tamela Lane, accurately reflects the services(s) I performed and decisions made by me. Authenticated by Dr. Mac on 02/26/2025 16:47:40. Problem List/Past Medical History Ongoing Acosta's esophagus BMI 24.0-24.9, adult BPH with urinary obstruction Depression Elevated cholesterol Elevated PSA Family history of prostate cancer in father Hiatal hernia History of prostatitis HTN (hypertension) Nocturia Panic attack Physical exam Prostatitis Smoker Urethral meatal stenosis Historical No qualifying data Procedure/Surgical History Cystoscopy (10/26/2024), TURBT - Transurethral resection of bladder tumor (10/26/2024), TURP - Transurethral resec (more content not included)...Normal [facility] HospitalComment on above:Result Comment: Electronically Signed By: Ti MAC MD\.br\Date and Time Signed: 02/26/25 16:47 EDT\.br\Electronically Co-Signed By: Tamela Lane\.br\Date and Time Co- Signed: 02/26/25 16:47 EDTCBC w/ Auto Diffon [id number]/100 WBC (Bld) 1.0 %Normal0.0-2.0[facility] HospitalComment on above:Performed By: #### [id number] #### [facility] [address], [place] [address]Fibduhniv/Leukocytes Auto (Bld) [Pure # fraction]0.1 E9/LNormal 0.0-0.2FCleveland Clinic Fairview HospitalComment on above:Performed By: #### [id number] #### [facility] [address], [place] [address]Qzetkgzrpfj (Bld) [#/Vol]0.3 E9/LNormal0.0-0.5FCleveland Clinic Fairview HospitalComment on above:Performed By: #### [id number] #### [facility] [address], [place] [address]Wxxaahxuwrh/100 WBC (Bld)3.6 %Normal0.0-8.0[facility] HospitalComment on above:Performed By: #### [id number] #### [facility] [address], [place] [address]Qtxsnxewvic distribution width (RBC) [Ratio]14.0 %Normal 10.9-14.2FCleveland Clinic Fairview HospitalComment on above:Performed By: #### [id number] #### [facility] [address] [place] [address]Eyxhuveioz (Bld) [Volume fraction]43.0 %Tuoxhq01.7-49.0[facility] HospitalComment on above:Performed By: #### [id number] #### [facility] [address] [place] [address]Hmtfitxgor (Bld) [Mass/Vol]14.4 g/eOAlzmqh50.5-17.5FCleveland Clinic Fairview HospitalComment on above:Performed By: #### [id number] #### [facility] [address] [place] [address]Mwnpwdnvqia (Bld) [#/Vol]2.3 E9/LNormal1.0-4.0[facility] HospitalComment on above:Performed By: #### [id number] #### [facility] [address] [place] [address]Dzixlfzdepn/100 WBC (Bld)27.7 %Ihmvto59.0-50.0[facility] HospitalComment on above:Performed By: #### [id number] #### [facility] [address] [place] [address] 96[address]LWQ (RBC) [Entitic mass]31.3 tkZbdlrg08.0-34.0[facility] HospitalComment on above:Performed By: #### [id number] #### [facility] [address] [place] [address] 00888UTII (RBC) [Mass/Vol]33.6 g/fIKnbkbq95.4-36.0[facility] HospitalComment on above:Performed By: #### [id number] #### [facility] [address] [place] [address] 73571BTN (RBC) [Entitic vol]93.2 wOOkkdsi94.0-100.0[facility] HospitalComment on above:Performed By: #### [id number] #### [facility] [address] [place] [address]27[address]Cplnfanqm (Bld) [#/Vol]0.6 E9/LNormal0.2-1.0[facility] HospitalComment on above:Performed By: #### [id number] #### [facility] [address] [place] [address] 456[address]Vwvumzcdkhq (Bld) [#/Vol]5.1 E9/LNormal2.0-7.5FCleveland Clinic Fairview HospitalComment on above:Performed By: #### [id number] #### [facility] [address] [place] [address] 6[address]Rvkumurfftw/100 WBC (Bld)60.8 %Cgfioi50.0-75.0[facility] HospitalComment on above:Performed By: #### [id number] #### [facility] [address] [place] [address]Ysjnixaq mean volume (Bld) [Entitic vol]10.4 fLNormal6.4-10.8 [facility] HospitalComment on above:Performed By: #### [id number] #### [facility] [address] [place] [address]Fzzxjljdm (Bld) [#/Vol]225.0 E9/SVphxbn769.0-500.0[facility] HospitalComment on above:Performed By: #### [id number] #### [facility] [address] [place] [address] 81897WWZ (Bld) [#/Vol]4.6 E12/LNormal4.3-5.9[facility] HospitalComment on above:Performed By: #### [id number] #### [facility] [address] [place] [address]TUU corrected for nucl RBC Auto (Bld) [#/Vol]8.4 E9/LNormal 4.0-11.0[facility] HospitalComment on above:Performed By: #### [id number] #### [facility] [address], [place] [address]GNJvo 69-90-7226Ztxyzew [Mass/Vol]4.5 g/dLNormal3.3-5.0[facility] HospitalComment on above:Performed By: #### [id number] #### [facility] [address], [place] [address]Zvbbeoy/Globulin (S) [Mass conc ratio]2.8Wnmynu5.1-2.2FC[facility] HospitalComment on above:Performed By: #### [id number] #### [facility] [address], [place] [address]VUN [Catalytic activity/Vol]62 Int._Unit/VCzgnyr12-04DhcubqTrihealth Mccullough-Hyde Memorial HospitalComment on above:Performed By: #### [id number] #### [facility] [address], [place] [address]PLK No additional P-5'-P [Catalytic activity/Vol]18 Int._Unit/L Normal6-46[facility] HospitalComment on above:Performed By: #### [id number] #### [facility] [address], [place] [address]Bdtkv gap [Moles/Vol]12 mmol/LNormal6-16[facility] HospitalComment on above:Performed By: #### [id number] #### [facility] [address], [place] [address]VHC [Catalytic activity/Vol]23 Int._Unit/LNormal5-43[facility] HospitalComment on above:Performed By: #### [id number] #### [facility] [address], [place] [address]Btduhcbou [Mass/Vol]0.4 mg/dLNormal0.0-1.1FC[facility] Fair[facility] HospitalComment on above:Performed By: #### [id number] #### [facility] [address], [place] [address]Skdlsrq [Mass/Vol]8.9 mg/dLNormal8.9-11.1FC[facility] Clinic Fair[facility] HospitalComment on above:Performed By: #### [id number] #### [facility] [address], [place] [address]Ntaxrbvj [Moles/Vol]105 mmol/JDtzeng723-406FpzrwdTrihealth Mccullough-Hyde Memorial HospitalComment on above:Performed By: #### [id number] #### [facility] [address], [place] [address]FV4 [Moles/Vol]26 mmol/ZOmmqfo11-90YgccgyTrihealth Mccullough-Hyde Memorial Hospital Comment on above:Performed By: #### [id number] #### [facility] [address], [place] [address]Swembhsqcp [Mass/Vol]0.9 mg/dLNormal0.5-1.3FC[facility] Clinic Fairview HospitalComment on above:Performed By: #### [id number] #### [facility] [address], [place] [address]Dtawtlqv (S) [Mass/Vol]2.3 g/dLNormal1.4-4.0[facility] HospitalComment on above:Performed By: #### [id number] #### [facility] [address] [place] [address]Yftilvr [Mass/Vol]99 mg/kFUrjfhm20-313YyutxeTrihealth Mccullough-Hyde Memorial HospitalComment on above:Performed By: #### [id number] #### [facility] [address], [place] [address]Suvypdppc [Moles/Vol]4.1 mmol/LNormal3.5-5.3FC[facility] Clinic Fairview HospitalComment on above:Performed By: #### [id number] #### [facility] [address], [place] [address]Tdbadgy [Mass/Vol]6.8 g/dLNormal6.0-7.8[facility] HospitalComment on above:Performed By: #### [id number] #### [facility] [address], [place] [address]Ljrnde [Moles/Vol]139 mmol/CHxvvcp060-747JyptytTrihealth Mccullough-Hyde Memorial HospitalComment on above:Performed By: #### [id number] #### [facility] [address], [place] [address]Tinx nitrogen [Mass/Vol]15 mg/dLNormal5-21[facility] HospitalComment on above:Performed By: #### [id number] #### [facility] [address], [place] [address]Jzsr nitrogen/Creatinine [Mass ratio]17 No TxckvKmgkde16-77 [facility] HospitalComment on above:Performed By: #### [id number] #### [facility] [address], [place] [address]Ircvh Panelon 37-85-1102Buswmtebgws [Mass/Vol]213 mg/dLHigh 120-200[facility] HospitalComment on above:Performed By: #### [id number] #### [facility] [address], [place] [address]Dzokmhycxif in HDL [Mass/Vol]51 mg/dLInvalid Interpretation CodeTrihealth Mccullough-Hyde Memorial HospitalComment on above:Result Comment: '>= 60 LOW RISK' '<= 40 HIGH RISK'Performed By: #### [id number] #### [facility] [address], [place] [address]Aaeaunjjcer in LDL [Mass/Vol]131 mg/dLHigh<=129[facility] HospitalComment on above:Performed By: #### [id number] #### [facility] [address], [place] [address]Aqvqakttarx in VLDL [Mass/Vol]41 mg/dLHigh7-40[facility] HospitalComment on above:Performed By: #### [id number] #### [facility] [address], [place] [address]Qocgennhngft [Mass/Vol]203 mg/dLHigh<=149[facility] HospitalComment on above:Performed By: #### [id number] #### [facility] [address], [place] [address]eQLDzn 70-78-3028yTBB73 mL/min/1.73 q1Pnsmlf>=59[facility] HospitalComment on above:Performed By: #### [id number] #### [facility] [address], [place] [address]Zwvrhbyhsz Visit Summaryon [id number] Visit Summary Ambulatory Visit Summary VALDEMAR CUELLAR :1960 Visit Date:01/15/2025 Ambulatory Visit Instructions Your Diagnosis Physical exam Smoker Elevated PSA HTN (hypertension) Elevated cholesterol Depression BPH with urinary obstruction Colon cancer screening Encounter for screening for lung cancer Other obstructive and reflux uropathy Your Care Team Attending Physician - Nehemiah Moffett MD Primary Care Physician - Nehemiah Moffett MD This Is Your Medications List Contact prescribing physician if questions or concerns amlodipine (amLODIPine 5 mg Tab) tamsulosin (tamsulosin 0.4 mg Cap) Procedures Performed Cystoscopy (10/26/2024), TURBT - Transurethral resection of bladder tumor (10/26/2024), TURP - Transurethral resection of prostate (10/26/2024), Cystoscopy (09/20/2003), Colonoscopy. Discharge Vitals Temperature (Tympanic) 36.8 ???C Heart Rate (Peripheral) 76 Respiratory Rate 18 Blood Pressure 122/74 Height 177 cm Height 70 in Weight 78.1 kg Weight 172.181 lb BMI 24.93 What to do next Scheduled Follow-Up Appointments Wednesday. 2024 2:45 PM EDT With: Ti MAC MD Where: [facility] [address] [place] [address] [place] [address]- You Need to Complete the Following CT Chest, Low Dose Screening, 01/15/25, Routine, Order for future visit, Transport Mode: Ambulatory, Reason: Screening, Yes, Yes, Yes, 1, 40, Yes, 0, [id number], No, Elevated cholesterol Physical exam Smoker BMI 24.0-24.9, adult Elevated PSA HTN (hypertension), pp_set_ra... Medications What How Much When Instructions Unchanged amlodipine (amLODIPine 5 mg Tab) See instructions TAKE 1 TABLET BY MOUTH EVERY DAY Contact prescribing physician if questions or concerns Unchanged tamsulosin (tamsulosin 0.4 mg Cap) 1 Capsules By Mouth 2 times a day Duration: 30 Days Contact prescribing physician if questions or concerns Allergies No Known Allergies Problems Ongoing - Any problem that you are currently receiving treatment for. Acosta's esophagus BMI 24.0-24.9, adult BPH with urinary obstruction Depression Elevated cholesterol Elevated PSA Family history of prostate cancer in father Hiatal hernia History of prostatitis HTN (hypertension) Lesion of bladder Nocturia Panic attack Physical exam Prostatitis Smoker Patient Survey You may receive a survey via text or e-mail asking about your office visit. Please share your experience with us by completing your survey. We appreciate your feedback and thank you for choosing us for your care. [facility] Medicine Office/Clinic Noteon [phone] Medicine Office/Clinic NoteBay[facility] Office/Clinic Note Chief Complaint Annual Physical HPI Staff Pt presents today for annual physical. Health Maintenance: Colonoscopy: long time ago PSA: 1.82 (12/17/2023) Last Labs: 10/11/24 (PST's for Dr Mac) Does not need any refills at this time. History of Present Illness Patient presents for a full physical today. Has no complaints today. Blood pressure looks good today. Patient is taking medication without any concerns. Patient is consuming 2-3 beers a day. Patient is smoking approximately a pack a day. Patient denies any concerns on getting off alcohol. Patient declines smoking cessation. Review of Systems PHQ Score Initial Depression Screen Score: 0 SCORE Physical Exam Vitals & Measurements T: 36.8 ???C(Tympanic) HR: 76(Peripheral) RR: 18 BP: 122/74 SpO2: 97% HT: 70 in HT: 177 cm WT: 78.1 kg WT: 172.181 lb BMI: 24.93 General: alert, no acute distress ENMT: oral [...] given. Discussed diet and exercise. Discussed immunizations. Ordered: CBC w/ Auto Diff Comprehensive Metabolic Panel CT Chest, Low Dose Screening [facility] [place] Ambulatory Referral Lipid Panel 2. Smoker (F17.200: Nicotine dependence, unspecified, uncomplicated) Patient is not interested in quitting smoking. Will do low-dose CT. Ordered: CBC w/ Auto Diff Comprehensive Metabolic Panel CT Chest, Low Dose Screening [facility] [place] Amb[place] Referral Lipid Panel 3. Elevated PSA (R97.20: Elevated prostate specific antigen [PSA]) Follows with urology. Has no complaints at this time. Ordered: CBC w/ Auto Diff Comprehensive Metabolic Panel CT Chest, Low Dose Screening [facility] [place] Ambulatory Referral Lipid Panel 4. HTN (hypertension) (I10: Essential (primary) hypertension) Blood pressure is at goal. No concerns with medication. Does not need refill at this time. Ordered: CBC w/ Auto Diff Comprehensive Metabolic Panel CT Chest, Low Dose Screening [facility] [place] Ambulatory Referral Lipid Panel 5. Elevated cholesterol (E78.00: Pure hypercholesterolemia, unspecified) Will recheck cholesterol today. No concerns. Patient is not on the statin at this time. Ordered: CBC w/ Auto Diff Comprehensive Metabolic Panel CT Chest, Low Dose Screening Lipid Panel 6. Depression (F32.A: Depression, unspecified) No concerns at this time. Doing well. Ordered: CBC w/ Auto Diff Comprehensive Metabolic Panel Lipid Panel 7. BPH with urinary obstruction (N40.1: Benign prostatic hyperplasia with lower urinary tract symptoms) Continue using Flomax. No concerns at this time. Ordered: CBC w/ Auto Diff Comprehensive Metabolic Panel Lipid Panel 8. Colon cancer screening (Z12.11: Encounter for screening for malignant neoplasm of colon) Referral to GI ordered. 9. Encounter for screening for lung cancer (Z12.2: Encounter for screening for malignant neoplasm of respiratory organs) Low-dose CT scan ordered. Other obstructive and reflux uropathy (N13.8: Other obstructive and reflux uropathy) Follow-up No qualifying data available Problem List/Past Medical History Ongoing Acosta's esophagus BMI 24.0-24.9, adult BPH with urinary obstruction Depression Elevated cholesterol Elevated PSA Family history of prostate cancer in father Hiatal hernia History of prostatitis HTN (hypertension) Lesion of bladder Nocturia Panic attack Physical exam Prostatitis Smoker Historical No qualifying data Procedure/Surgical History Cystoscopy (10/26/2024), TURBT - Transurethral resection of bladder tumor (10/26/2024), TURP - Transurethral resection of prostate (10/26/2024), Cystoscopy (09/20/2003), Colonoscopy. Medications amLODIPine 5 mg Tab, See Instructions, 2 refills tamsulosin 0.4 mg Cap, 0.4 mg= 1 cap(s), Oral, BID, 11 refills Allergies No Known Allergies Social History Alcohol Current. Beer. 3-5 times per week., 07/17/2024 Substance Abuse Never., 07/17/2024 Tobacco 5-9 cigarettes (between 1/4 to 1/2 pack)/day in last 30 days Tobacco Use:. Never Smokeless Tobacco Use:. Cigarettes, Household tobacco concerns: No. Yes, 01/15/2025 Family History Bladder cancer: Father. Diabetes: Mother. Hypertension: Mother and Father. Primary malignant neoplasm of prostate: Father. Immunizations Vaccine Date Status Comments SARS-CoV-2 (COVID-19) Ad26 vaccine 08/15/2021 Recorded 2023-03-15: TPV60 SARS-CoV-2 (COVID-19) Ad26 vaccine 02/15/2021 Recorded 2023-03-15: TPV (more content not included)...[facility] CenterComment on above:Result Comment: Electronically Signed By: Zuhair GLEASON, Nehemiah Gamez\.br\Date and Time Signed: 01/15/25 18:00 EDTProvider Letteron [phone] LetterProvider Letter November 22, 2024 VALDEMAR C[birth year]LLAR [birth year] [place] [address] : 1960 To Whom It May Concern, Please excuse above patient from work. Date of Illness: From: 10/26/2024 To: 11/26/2024 May Return to Work On: 11/27/24 Restrictions: Patient may return to work on 11/27/24 without restrictions. Comments: N/A Sincerely, Dr. Ti Mac, F.A.C.S. [facility] [address] [address] Fax [facility] CenterC Urineon 11-15-2024 Bacteria identified Cx Nom (U)Microbiology PROCEDURE: Urine Culture [R1] SOURCE: U Random BODY SITE: COLLECTED DATE/TIME: 11/13/2024 11:05 EST RECEIVED DATE/TIME: 11/13/2024 16:56 EST START DATE/TIME: 11/13/2024 17:03 EST FREE TEXT SOURCE: DEANGELO ANN PA-C, PA-C, DEANGELO Manzano FINAL REPORTS Final Report [] Verified Date/Time: 11/15/2024 09:29 EST No growth at 2 days. Performing Locations R1: This test was performed at: [facility], [address] [place] [address], [address] [place] [address], LvwvkzIolhyuCincinnati Children's Hospital Medical CenterComment on above:Performed By: #### [id number] #### [facility] [address] [place] [id number] Visit Summaryon [id number] Visit Summary Ambulatory Visit Summary VALDEMAR CUELLAR :1960 Visit Date:11/03/2024 Ambulatory Visit Instructions Your Diagnosis Lesion of bladder BPH with urinary obstruction Elevated PSA Prostatitis Family history of prostate cancer in father Your Care Team Attending Physician - Ti MAC MD Primary Care Physician - Nehemiah Moffett MD This Is Your Medications List tamsulosin (tamsulosin 0.4 mg Cap) Contact prescribing physician if questions or concerns amlodipine (amLODIPine 5 mg Tab) [Image Removed: STOP]Stop taking these medications dutasteride (dutasteride 0.5 mg Cap) Procedures Performed Cystoscopy (10/26/2024), TURBT - Transurethral resection of bladder tumor (10/26/2024), TURP - Transurethral resection of prostate (10/26/2024), Cystoscopy (09/20/2003), Colonoscopy. Discharge Vitals Temperature (Temporal Artery) 37 ???C Heart Rate (Peripheral) 70 Respiratory Rate 16 Blood Pressure 129/75 Height 177 cm Height 70 in Weight 80 kg Weight 176.37 lb BMI 25.54 What to do next Scheduled Follow-Up Appointments Wednesday 5:45 PM EDT With: Zuhair GLEASON, Nehemiah Gamez Where: [facility] [address] [address]- Wednesday 2:45 PM EDT With: Ti MAC MD Where: [facility] [address] [place] [address]- You Need to Schedule the Following Appointments Follow Up with Ti MAC MD, URL When: Where: [address] [place] [address]- Medications What How Much When Instructions Unchanged tamsulosin (tamsulosin 0.4 mg Cap) 1 Capsules By Mouth 2 times a day Duration: 30 Days Unchanged amlodipine (amLODIPine 5 mg Tab) See instructions TAKE 1 TABLET BY MOUTH EVERY DAY Contact prescribing physician if questions or concerns What How Much When Comments Stop Taking dutasteride (dutasteride 0.5 mg Cap) 1 Capsules By Mouth Every day Allergies No Known Allergies Problems Ongoing - Any problem that you are currently receiving treatment for. Acosta's esophagus BPH with urinary obstruction Cigarette nicotine dependence Depression Elevated cholesterol Elevated PSA Family history of prostate cancer in father Hiatal hernia History of prostatitis HTN (hypertension) Lesion of bladder Nocturia Panic attack Physical exam Prostate cancer screening Prostatitis Smoker Patient Survey You may receive a survey via text or e-mail asking about your office visit. Please share your experience with us by completing your survey. We appreciate your feedback and thank you for choosing us for your care. Education [employer] Benign Prostatic Hyperplasia Benign prostatic hyperplasia (BPH) is an enlarged prostate gland that is caused by the normal agingprocess. The prostate may get bigger as a man gets older. The condition is not caused by cancer. The prostate is a walnut-sized gland that is involved in the production of semen. It is located in front of the rectum and below the bladder. The bladder stores urine. The urethra carries stored urine ou t of the body. An enlarged prostate can press on the urethra. This can make it harder to pass urine. The buildup of urine in the bladder can cause infection. Back pressure and infection may progress to bladder damage and kidney (renal) failure. What are the causes? This condition is part of the normal aging process. However, not all men develop problems from thiscondition. If the prostate enlarges away from the urethra, urine flow will not be blocked. If it enlarges toward the urethra and compresses it, there will be problems passing urine. What increases the risk? This condition is more likely to develop in men older than 50 years. What are the signs or symptoms? Symptoms of this condition include: ??? Getting up often during the night to urinate. ??? Needing to urinate frequently during the day. ??? Difficulty starting urine flow. ??? Decrease in size and strength of your urine stream. ??? Leaking (dribbling) after urinating. ??? Inability to pass urine. This needs immediate treatment. ??? Inability to completely empty your bladder. ??? Pain when you pass urine. This is more common if there is also an infection. ??? Urinary tract infection (UTI). How is this diagnosed? This condition is diagnosed based on your medical history, a physical exam, and your symptoms. Tests will also be done, such as: ??? A post-void bladder scan. This measures any amount of urine that may remain in your bladder after you finish urinating. ??? A digital rectal exam. In a rectal exam, your health care provider checks your prostate by putting a lubricated, gloved finger into your rectum to feel the back of your prostate gland. This exam detects the size of you (more content not included)...NormalEcu Health [facility] Hospitaler [facility] HospitalUrology Office/Clinic Noteon [id number] Office/Clinic NoteUrology Office/Clinic Note Chief Complaint F/u to review path HPI Staff 64yr old male pt here for PO TURP/turbt, and review path. S/p cysto 09/25/24. Previous Dx: prostatitis, BPH with urinary obstruction, elevated PSA, family history of prostate cancer *Flomax 0.4mg bid, Dutasteride 0.5mg qd Dysuria: burning Incomplete bladder emptying: denies Hematuria: pt sees a little first thing in the morning and seems to get better throughout the day Frequency: denies Urgency: denies Nocturia: 1x Stream: denies straining and intermittency Leaking: denies Post void dripping: very little Wearing pads/ Depends: denies Urge incontinence: denies Stress incontinence: denies Incontinence without Sensory Awareness: denies Abdominal pain: denies Flank pain: denies Sexual complaints: denies History of Present Illness Tests reviewed: reviewed UA and path. I have reviewed the previous health record information and history for this patient from Dr. Mac I have reviewed and verified the staff [...] See HPI. Physical Exam Vitals & Measurements T: 37 ???C(Temporal Artery) HR: 70(Peripheral) RR: 16 BP: 129/75 HT: 70 in HT: 177 cm WT: 80 kg WT: 176.37 lb BMI: 25.54 General Appearance: alert, no distress, well nourished, well developed male. Assessment/Plan 1. Lesion of bladder (N32.9: Bladder disorder, unspecified) S/p cysto 09/25/24 - 1 cm papillary bladder lesion on the anterior right bladder wall surface. Doesnot appear as a classic TCC lesion. S/p urethral meatal dilation with Blayne sounds to 28Fr, cysto, TURP, TURBT 1 cm 10/26/24. Erwin removed 10/30/24. 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 Pending external consultation. Results reviewed with pt. -2nd opinion path pending 2. BPH with urinary obstruction (N40.1: Benign prostatic hyperplasia with lower urinary tract symptoms) S/p cysto 09/25/24 - long obstructing lateral lobes. High-grade bladder damage. S/p urethral meatal dilation with Blayne sounds to 28Fr, cysto, TURP, TURBT 1 cm 10/26/24. Path ~prostate glandular and stromal hyperplasia. Results reviewed with pt. PVR 07/03/24 - 196 mL. Pt states he stopped taking Flomax and Dutasteride after TURP. Pt states Dutasteride caused an upset stomach. Pt states post void dribbling has improved. Recommended pt to remain on Flomax until at least next visit. Overall doing well with urination since TURP. Encouraged pt to increase fluids. -Restart Flomax 0.4mg bid until next visit -Cont weight and activity restrictions -F/up in 3 mos w/ PVR or sooner if needed 3. Elevated PSA (R97.20: Elevated prostate specific antigen [PSA]) PSA: 05/27/19 - 2.01 11/24/19 - 1.89 06/15/20 - 2.14 11/22/20 - 2.46 11/29/21 - 1.43 03/09/23 - 3.05 (had infection at that time) 05/27/23 - 2.08 12/17/23 - 1.82[1] No recent level. Will cont to monitor after pt is completely healed from TURP/TURBT. 4. Prostatitis (N41.9: Inflammatory disease of prostate, unspecified) Treated with Doxycycline 100mg 100 mg bid x1 month 07/03/24 due to being symptomatic of prostatitis. UA today shows large blood and trace leuks. 5. Family history of prostate cancer in father (Z80.42: Family history of malignant neoplasm of prostate) Also had bladder cancer. [2] Follow-up With When Contact Information MARIAN GLEASON, Ti Valle, URL [address] [place] [address]- Additional Instructions: 3 months w/ PVR Patient Education Benign Prostatic Hyperplasia I, Hiwot Fernandez, personally scribed for Dr. Mac on 11/03/2024 10:05:54. . Documentation recorded by the scribe, Hiwot Fernandez, accurately reflects the services(s) I performed and decisions made by me. Authenticated by Dr. Mac on 11/03/2024 10:10:25. Problem List/Past Medical History Ongoing Acosta's esophagus BPH with urinary obstruction Cigarette nicotine dependence Depression Elevated cholesterol Elevated PSA Family history of prostate cancer in father Hiatal hernia History of prostatitis HTN (hypertension) Lesion of bladder Nocturia Panic attack Physical exam Prostat (more content not included)...[facility] CenterComment on above:Result Comment: Electronically Signed By: MARIAN GLEASON, Ti Valle\.br\Date and Time Signed: 11/03/24 10:10 EST\.br\Electronically Co-Signed By: Hiwot Fernandez.br\Date and Time Co-Signed: 11/03/2509:06 ESTSURGICAL PATHOLOGY REFERENCE LAB CONSULTon [id number] REPORTNoAshtabula General Hospital Comment on above:Order Comment: Specimen Type: FORMALIN-FIXED PARAFFIN-EMBEDDED TISSUE SPECIMEN Ordering Facility: [facility] Address: [address] [place], [place] [address] [place], [place] [address]Drkpkc Comment: Surgical Pathology Report Case: [id number] Authorizing Provider: Amado Duffy, Collected: 11/02/2024 10:27 PM Ordering Location: [facility] Received: 11/02/2024 10:26 PM [facility] Pathologist: Samina Nelson MD Specimen: Slide(s), 6 SLIDES ([id number])Performed By: #### [id number] #### [facility] CLIA [id number] [address] [place] [address] [place] OF AMERICACLINICAL HISTORYCONSULT REQUESTEDNoAshtabula General HospitalComment on above:Order Comment: Specimen Type: FORMALIN-FIXED PARAFFIN-EMBEDDED TISSUE SPECIMEN Ordering Facility: [facility] Address: [address] [place], [place] [address] [place], [place] [address]Pivngnjqt By: #### [id number] #### [facility] CLIA [id number] [address] [place] [address] [place] OF AMERICADIAGNOSIS COMMENTNormal [facility] Hospital LimaComment on above:Order Comment: Specimen Type: FORMALIN-FIXED PARAFFIN-EMBEDDED TISSUE SPECIMEN Ordering Facility: [facility] Address: [address] [place], [place] [address]Nsnash Comment: This case was shown at the consensus conference on 11/03/[address] Nancy Spencer and Richard Eddy in attendance, who both concur with the diagnosis.Performed By: #### [id number] #### [facility] CLIA [id number] [address] [place], [place] [address] [facility] CENTERFINAL DIAGNOSISNormal [facility] on above:Order Comment: Specimen Type: FORMALIN-FIXED PARAFFIN-EMBEDDED TISSUE SPECIMEN Ordering Facility: [facility] Address: [address] [place], [place] [address] [place], [place] [address]Dnezuy Comment: [id number]; 10/26/2024 B. 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 at 1441 ESTPerformed By: #### [id number] #### [facility] CLIA [id number] [address] [place], [place] [address] [facility] MED[facility] CENTERFINGA PERFORMING LABNormal [facility] on above:Order Comment: Specimen Type: FORMALIN-FIXED PARAFFIN-EMBEDDED TISSUE SPECIMEN Ordering Facility: [facility] Address: [facility] [place], [place] [address]Nadkir Comment: Diagnostic interpretation performed at: [facility], [address] [place] [address] CLIA# [id number] Blackener: ABBI Samserformed By: #### [id number] #### [facility] CLIA [id number] [address] [place] [address] STATES OF [facility] HOSPITALAmbulatory Visit Summaryon [id number] Visit SummaryAmbulatory Visit Summary POLO VALDEMAR Cochran :1960 Visit Date:10/30/2024 Ambulatory Visit Instructions Your Care Team Attending Physician - MARIAN GLEASON, Ti Valle Primary Care Physician - Zuhair GLEASONNehemiah This Is Your Medications List amlodipine (amLODIPine 5 mg Tab) ciprofloxacin (Cipro 500 mg Tab) dutasteride (dutasteride 0.5 mg Cap) tamsulosin (tamsulosin 0.4 mg Cap) Procedures Performed Cystoscopy (09/20/2003), Colonoscopy. What to do next Scheduled Follow-Up Appointments Wednesday 9:15 AM EST With: MARIAN GLEASON, Ti Valle Where: [facility] of [address] [address]- Wednesday 5:45 PM EDT With: Nehemiah Moffett MD Where: [facility] [address] [address]- Medications What How Much When Instructions Unchanged amlodipine (amLODIPine 5 mg Tab) See instructions TAKE 1 TABLET BY MOUTH EVERY DAY Unchanged ciprofloxacin (Cipro 500 mg Tab) 1 Tablets By Mouth Every day Take 1 tablet the day before the procedure and 1 tablet after the procedure Unchanged dutasteride (dutasteride 0.5 mg Cap) 1 [...] you for choosing us for your care. [facility] Medical CenterLon 10-26-2024 Specimen: [id number] Received: 10/27/24 Status: COLLEEN Sun Num: [id number] Spec Type: Surgical Subm Dr: Ti Mac MD Tissues: A Prostate - Tur (PROSTATE TURP) B Urinary Bladder - biopsy (BLADDER BX) Procedures: , Gross/Micro L4/2 Age/ Patient Sex Location Account Attending Physician Valdemar Cuellar/M LABELL [id number] Ti Mac MD SPEC NUM: [id number] RECD: 10/27/24 STATUS: COLLEEN SUN NUM: [id number] ZANDER: 10/26/[address] [facility] [address]: Ti Mac MD ENTERED: 10/27/24-[address]: SPEC TYPE: Surgical DEPT: GARY LEON ORDERED: /, Gross/Micro L4/2 ORDERED: , Gross/Micro L4/2 Supplemental Report Addendum 1 Entered: 11/06/24 This case was sent to [facility] for consultation. Their diagnosis is as follows: B. 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 Please see attached consultation report from [facility] for diagnostic details. Addendum Signed (signature on file) Amado Colbert MD 11/06/241808 Pathological Diagnosis A. Prostate, transurethral resection: Prostate glandular and stromal hyperplasia. B. 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 - Pending external consultation. Specimen: [id number] Received: 10/27/24-1208 Status: COLLEEN Sun Num: [id number] Spec Type: Surgical Subm Dr: Ti Mac MD Tissues: A Prostate - Tur (PROSTATE TURP) B Urinary Bladder - biopsy (BLADDER BX) Procedures: SILVESTRE/Camilla, Gross/Micro L4/2 Patient: Valdemar Cuellar [id number] (Continued) Specimen: [id number] Received: 10/27/24 (Continued) Signed (signature on file) Amado Colbert MD 10/31/24 1349 Specimen: [id number] Received: 10/27/24 Status: COLLEEN Sun Num: [id number] Spec Type: Surgical Subm Dr: Ti Mac MD Tissues: A Prostate - Tur (PROSTATE TURP) B Urinary Bladder - biopsy (BLADDER BX) Procedures: Renetta Sampson/Dorys L4/2 Patient: Valdemar Cuellar [id number] (Continued) Specimen: [id number] Received: 10/27/24 (Continued) Clinical Information Bladder tumor, BPH with obstruction Gross Description A. Received in formalin labeled with the patient's name, date of and prostate tissue is a 7.9 g, 6.3 x 4.2 x 1.5 cm aggregate of rubbery and cauterized garcia- pink tissue fragments. No areas of discoloration, calcification or necrosis are identified. The specimen is entirely submitted in A1?A9. B. Received in formalin labeled with the patient's name, date of and bladder tumor is a 0.2 x 0.2 x 0.1 cm garcia tissue fragment. The specimen is entirely submitted in B1. TW CPT Codes 96481l7 Specimen: [id number] Received: 10/27/24 Status: COLLEEN Snu Num: [id number] Spec Type: Surgical Subm Dr: Ti Mac MD Tissues: A Prostate - Tur (PROSTATE TURP) B Urinary Bladder - biopsy (BLADDER BX) Procedures: /, Gross/Micro L4/2 Patient: Valdemar Cuellar [id number] (Continued) Signed (signature on file) Amado Colbert MD 10/31/[address] [place] [address] Physician GroupAmbulatory Visit Summaryon [id number] Visit SummaryAmbulatory Visit Summary VALDEMAR CUELLAR :1960 Visit Date:07/17/2024 [...] PM EDT With: Nehemiah Moffett MD Where: [address] [address]- Medications What How Much When Instructions Unchanged [...] you for choosing us for your care. [facility] Medicine Office/Clinic Noteon [id number] Medicine Office/Clinic NoteBaystate [facility] Office/Clinic Note HPI Staff Valdemar is [...] blood pressure. Having pain in his left thumb.No other concerns. Review of Systems PHQ Score [...] DAY, # 90 tab(s), Refills(s) 2, Pharmacy: [facility]/pharmacy #[id number], 177, cm, 07/17/24 17:45:00 EDT, Height/Length [...] Patient Refuses SARS-CoV-2 (COVID-19) Ad26 vaccine 2020 RecordedCincinnati Children's Hospital Medical CenterComment on above:Result Comment: Electronically Signed By: Nehemiah Moffett MD\.br\Date and Time Signed: 07/17/24 17:59 EDTAmbulatory Visit Summaryon [id number] Visit SummaryAmbulatory Visit Summary VALDEMAR CUELLAR :1960 Visit Date:07/03/2024 [...] PM EDT With: Nehemiah Moffett MD Where: [facility] [address] [address]- You Need to Schedule the Following Appointments Follow Up with Ti MAC MD, URL When: Where: [facility] [address] [place] [phone] Medications What How Much When Instructions New doxycycline (doxycycline hyclate 100 mg Cap) 1 Capsules By Mouth 2 times a day Duration: 4 Weeks Pickup at [facility]/pharmacy #[id number] Changed tamsulosin (tamsulosin 0.4 mg Cap) 1 Capsules By Mouth 2 times a day Duration: 30 Days Pickup at [facility]/pharmacy #[id number] Unchanged dutasteride (dutasteride 0.5 mg Cap) 1 Capsules By Mouth Every day Unchanged amlodipine (amLODIPine 5 mg Tab) See instructions TAKE 1 TABLET BY MOUTH EVERY DAY Contact prescribing physician if questions or concerns Pharmacy Information [facility]/pharmacy #[id number]: [address], [place] [phone] Allergies No Known Allergies Problems Ongoing - [...] prostate gland, also called the prostate. This glandis about 1.5 inches wide and 1 inch [...] quickly and results from an acute bacterial infectionin the prostate gland. It is usually associated [...] when the body's disease-fighting system attacks healthy tissuein the body by mistake. ? Psychological factors. [...] urinating often. ? Troubl (more content not included)...[facility] CenterUrology Office/Clinic Noteon [id number] Office/Clinic NoteUrology Office/Clinic Note Chief Complaint 6 mth f/u [...] some pain/burning with urination. Was on amoxicillin [id number] for skin abscess, finished this last Wednesday. Noticed urinary sxs started after this. UA today negative for blood and infection. The patient likely has prostatitis. He was advised about the different possible causes of bacterialand non-bacterial prostatitis. He needs to complete the course of prescribed antibiotics. He understands that the symptoms improve if he decreases his exercise and activity level. Anti-inflammatory medicines can also be helpful, as well as frequent ejaculations. Hot baths are also helpful in easingthe discomfort. -Take Doxycycline 100mg 100 mg bid x1 month. SEs discussed. Take probiotic daily. Rx sent to [facility]. 2. BPH with urinary obstruction (N40.1: Benign prostatic hyperplasia with lower urinary tract symptoms) Taking Flomax 0.4mg bid. Started on Dutasteride 0.5mg qd at prior OV. Denies SEs. PVR today 196 mL.Advised pt he is not emptying well likely secondary to current prostatitis. Also discussed possibleneed for CRAWFORD procedures given repeat infection. Advised pt a cystoscopy will need done first to evaluate prostate and bladder to determine candidacy for future operative intervention. -Cont Flomax. Refills sent to [facility]. Cont Dutasteride. Call for refills. -Will schedule [...] [2] Follow-up With When Contact Information MARIAN GLEASON, Ti Valle, URL [facility] [address] [place] [phone] Additional Instructions: sched cysto Patient Education Prostatitis Cystoscopy Benign Prostatic Hyperplasia IStefanie, personally scribed for Dr. Mac on 07/03/2024 16:16:08. . Documentation recorded by the scribeStefanie, accurately reflects the services(s) I performed and decisions made by me. Authenticated by Dr. Mac on 07/03/2024 16:17:54. Problem List/Past Medical History Ongoing Acosta's esophagus BPH with urinary obstruction Cigarette nicotine dependence Depression Elevated blood sugar Elevated cholesterol Elevated PSA Family history of prostate cancer in father Hiatal hernia History of prostatitis HTN (hypertension) Nocturia Panic at (more content not included)...[facility] Medical CenterComment on above:Result Comment: Electronically Signed By: iT MAC MD\.br\Date and Time Signed: 07/03/24 16:18 EDT\.br\Electronically Co-Signed By: Stefanie Amador\.br\Date and Time Co-Signed: 07/03/24 16:16 EDTCBC (INCLUDES DIFF/PLT)on [id number] (Bld) [#/Vol]0.042 10*3/uLNormal0-200[facility] Comment on above:Performed By: #### 27849, 8167, 9920 #### [facility] of [address], [address] [place] [address] Concessions Manager: Aron Almendarez MDBasophils/100 WBC (Bld)0.8 %NormalQuest DiagnosticsComment on above:Performed By: #### 89707, 6399, 7600 #### [facility] of [address], [address] [place] [address] Concessions Manager: Aron Almendarez MDEosinophils (Bld) [#/Vol]0.198 10*3/uLNormal 15-500Quest DiagnosticsComment on above:Performed By: #### 41794, 6399, 7600 #### [facility] of [address], [address] [place] [address] Concessions Manager: Aron Almendarez MDEosinophils/100 WBC (Bld)3.8 %NormalQuest DiagnosticsComment on above:Performed By: #### 01514, 63, 7600 #### [facility] of [address], [address] [place] [address] Concessions Manager: Aron Almendarez MDErythrocyte distribution width (RBC) [Ratio] 12.6 %Tuwkrj60.0-15.0Quest DiagnosticsComment on above:Performed By: #### 61003, 63, 7600 #### [facility] of [place] [address] Concessions Manager: Aron Almendarez MDHematocrit (Bld) [Volume fraction]46.4 %Normal 38.5-50.0[facility]osticsComment on above:Performed By: #### 83413, 6399, 7600 #### [facility] of [place] [address] Concessions Manager: Aron Almendarez MDHemoglobin (Bld) [Mass/Vol]16.0 g/dLNormal 13.2-17.1Quest DiagnosticsComment on above:Performed By: #### 87651, 6399, 7600 #### [facility] of [address], [address] [place] [address] Concessions Manager: Aron Almendarez MDLymphocytes (Bld) [#/Vol]1.492 10*3/uLNormal 850-3900Quest DiagnosticsComment on above:Performed By: #### 20950, 6399, 7600 #### [facility] of [address], [address] [place] [address] Concessions Manager: Aron Almendarez MDLymphocytes/100 WBC (Bld)28.7 %NormalQuest DiagnosticsComment on above:Performed By: #### 28105, 6399, 7600 #### [facility] of [address], [address] [place] [address] Concessions Manager: Aron Almendarez MDMCH (RBC) [Entitic mass]32.8 dzIwzuon84.0-33.0 [facility]osticsComment on above:Performed By: #### 18791, 6399, 7600 #### [facility] of [address], [address] [place] [address] Concessions Manager: Aron ESQUIVELCHC (RBC) [Mass/Vol]34.5 g/rTBadqas97.0-36.0 [facility]osticsComment on above:Performed By: #### 18134, 6399, 7600 #### [facility] of [address], [address] [place] [address] Concessions Manager: Aron ESQUIVELCV (RBC) [Entitic vol]95.1 xQAvdcqn81.0-100.0 [facility]osticsComment on above:Performed By: #### 96998, 6399, 7600 #### [facility] of [address], [address] [place] [address] Concessions Manager: Aron Almendarez MDMonocytes (Bld) [#/Vol]0.452 10*3/uLNormal 200-950Quest DiagnosticsComment on above:Performed By: #### 07917, 6399, 7600 #### [facility] of [address], [address] [place] [address] Concessions Manager: Aron Almendarez MDMonocytes/100 WBC (Bld)8.7 %NormalQuest DiagnosticsComment on above:Performed By: #### 03154, 6399, 7600 #### [facility] of [address], [address] [place] [address] Concessions Manager: Aron Almendarez MDNeutrophils (Bld) [#/Vol]3.016 10*3/uLNormal 1500-7800Quest DiagnosticsComment on above:Performed By: #### 06866, 6399, 7600 #### [facility] of [address], [address] [place] [address] Concessions Manager: Aron Almendarez MDNeutrophils/100 WBC (Bld)58 %NormalQuest DiagnosticsComment on above:Performed By: #### 02616, 6399, 7600 #### [facility] of [address], [address] [place] [address] Concessions Manager: Aron Almendarez MDPlatelet mean volume (Bld) [Entitic vol]12.1 fLNormal7.5-12.5Quest DiagnosticsComment on above:Performed By: #### 54499, 6399, 7600 #### [facility] of [address], [address] [place] [address] Concessions Manager: Aron Almendarez MDPlatelets (Bld) [#/Vol]184 10*3/uLNormal 140-400Quest DiagnosticsComment on above:Performed By: #### 75952, 6399, 7600 #### [facility] of [address], [address] [place] [address] Concessions Manager: Aron Almendarez MDRBC (Bld) [#/Vol]4.88 10*6/uLNormal4.20-5.80 [facility]osticsComment on above:Performed By: #### 39862, 6399, 7600 #### [facility] of [address], [address] [place] [address] Concessions Manager: Aron Almendarez MDWBC (d) [#/Vol]5.2 10*3/uLNormal3.8-10.8 [facility]osticsComment on above:Performed By: #### 21373, 6399, 7600 #### [facility] of [address], [address] [place] [address] Concessions Manager: Aron Almendarez MDCOMPREHENSIVE METABOLIC PANELon 12-19-2023 Albumin [Mass/Vol]4.2 g/dLNormal3.6-5.1[facility] DiagnosticsComment on above: Performed By: #### 22398, 6399, 7600 #### [facility] of [address], [address] [place] [address] Concessions Manager: Aron Almendarez MDAlbumin/Globulin [Mass ratio]1.9 {ratio}Normal 1.0-2.5Quest DiagnosticsComment on above:Performed By: #### 05135, 6399, 7600 #### [facility] of [address], [address] [place] [address] Concessions Manager: Aron Almendarez MDALP [Catalytic activity/Vol]70 U/VIgcggw60-344 [facility]osticsComment on above:Performed By: #### 02711, 6399, 7600 #### [facility] of [address], [address] [place] [address] Concessions Manager: Aron Almendarez MDALT [Catalytic activity/Vol]20 U/LNormal9-46 [facility]osticsComment on above:Performed By: #### 84818, 6399, 7600 #### [facility] of [address], [address] [place] [address] Concessions Manager: Aron Almendarez MDAST [Catalytic activity/Vol]19 U/SXpnymz51-19 [facility]osticsComment on above:Performed By: #### 47438, 6399, 7600 #### [facility] of [address], [address] [place] [address] Concessions Manager: Aron Almendarez MDBilirubin [Mass/Vol]0.4 mg/dLNormal0.2-1.2 [facility]osticsComment on above:Performed By: #### 29499, 6399, 7600 #### [facility] of [address], [address] [place] [address] Concessions Manager: Aron Almendarez MDBUN/CREATININE RATIOSEE NOTE:Normal6-22[facility] DiagnosticsComment on above:Result Comment: Not Reported: BUN and Creatinine are within reference range.Performed By: #### 97965, 6399, 7600 #### [facility] of [address], [address] [place] [address] Concessions Manager: Aron Almendarez MDCalcium [Mass/Vol]9.0 mg/dLNormal8.6-10.3Quest DiagnosticsComment on above:Performed By: #### [id number], 6399, 7600 #### [facility] of [address], [address] [place] [address] Concessions Manager: Aron Almendarez MDChloride [Moles/Vol]106 mmol/MJytkqe70-595 [facility]osticsComment on above:Performed By: #### 75281, 6399, 7600 #### [facility] of [place] [address] Concessions Manager: Aron Almendarez MDCO2 [Moles/Vol]26 mmol/TNucskz45-03Jbjqk DiagnosticsComment on above:Performed By: #### 98558, 6399, 7600 #### [facility] of [address], [address] [place] [address] Concessions Manager: Aron PAREKHreatinine [Mass/Vol]0.97 mg/dLNormal0.70-1.35 [facility] DiagnosticsComment on above:Performed By: #### 93967, 6399, 7600 #### [facility] of [address], [address] [place] [address] Concessions Manager: Aron Almendarez MDGFR/1.73 sq M.predicted among non-blacks MDRD (S/P/Bld) [Vol rate/Area]88 mL/min/{1.73_m2}Normal> OR = 60[facility] Comment on above:Performed By: #### 58099, 63, 7600 #### [facility] [address], [address] [place] [address] Concessions Manager: Aron Almendarez MDGlobulin (S) [Mass/Vol]2.2 g/dLNormal1.9-3.7 [facility]osticsComment on above:Performed By: #### 97402, 63, 7600 #### [facility] [place] [address] Concessions Manager: Aron Almendarez MDGlucose [Mass/Vol]118 mg/tHSbjf40-45Rokff DiagnosticsComment on above:Result Comment: Fasting reference interval For someone without known diabetes, a glucose value between 100 and 125 mg/dL is consistent with prediabetes and should be confirmed with a follow-up test.Performed By: #### 73637, 33, 7600 #### [facility] [place] [address] Concessions Manager: Aron Almendarez MDPotassium [Moles/Vol]4.2 mmol/LNormal3.5-5.3 [facility]osticsComment on above:Performed By: #### 98245, 75, 7600 #### [facility] [place] [address] Concessions Manager: Aron Almendarez MDProtein [Mass/Vol]6.4 g/dLNormal6.1-8.1Quest DiagnosticsComment on above:Performed By: #### 46361, 63, 7600 #### [facility] [place] [address] Concessions Manager: Aron Almendarez MDSodium [Moles/Vol]140 mmol/BDlkdah499-528Ladlf DiagnosticsComment on above:Performed By: #### 45074, 6399, 7600 #### [facility] [address], [address] [place] [address] Concessions Manager: Aron Almendarez MDUrea nitrogen [Mass/Vol]11 mg/dLNormal7-25 [facility]osticsComment on above:Performed By: #### 51793, 6399, 7600 #### [facility] [address], [address] [place] [address] Concessions Manager: Aron Almendarez MDLIPID PANEL, STANDARD 34-15-0578Ckaullgdlme [Mass/Vol]189 mg/dLNormal<200Quest DiagnosticsComment on above:Order Comment: FASTING: UNKNOWNPerformed By: #### 52016, 6399, 7600 #### [facility] [address], [address] [place] [address] Concessions Manager: Aron Almendarez MDCholesterol in HDL [Mass/Vol]49 mg/dLNormal> OR = 40Quest DiagnosticsComment on above:Order Comment: FASTING: UNKNOWN Performed By: #### 54260, 6399, 7600 #### [facility] [address], [address] [place] [address] Concessions Manager: Aron Almendarez MDCholesterol in LDL [Mass/Vol]119 mg/dLHigh [facility] DiagnosticsComment on above:Order Comment: FASTING: UNKNOWNResult Comment: Reference range: <100 Desirable range <100 mg/dL for primary prevention; <70 mg/dL for patients with CHD or diabetic patients with > or = 2 CHD risk factors. LDL-C is now calculated using the Kat calculation, which is a validated novel method providing better accuracy than the Friedewald equation in the estimation of LDL-C. Jon SS et al. PRUDENCIO. 2013;310(19): 8305-2173 (http://education.Kidd[employer]ilz.[employer]faq/SWG100)Performed By: #### 18353, 6399, 7600 #### [facility] [address], [address] [place] [address] Concessions Manager: Aron PAREKHholesterol.total/Cholesterol in HDL [Mass ratio]3.9 {ratio}Normal<5.0Quest DiagnosticsComment on above:Order Comment: FASTING: UNKNOWNPerformed By: #### 96865, 6399, 7600 #### [facility] [address], [address] [place] [address] Concessions Manager: Aron ROMEO HDL JYMPXRUPIYA705 mg/dL (calc)High<130 [facility] DiagnosticsComment on above:Order Comment: FASTING: UNKNOWNResult Comment: For patients with diabetes plus 1 major ASCVD risk factor, treating to a non-HDL-C goal of <100 mg/dL (LDL-C of <70 mg/dL) is considered a therapeutic option.Performed By: #### 20001, 32, 7600 #### [facility] [address], [address] [place] [address] Concessions Manager: Aron Almendarez MDTriglyceride [Mass/Vol]100 mg/dLNormal<150 [facility] DiagnosticsComment on above:Order Comment: FASTING: UNKNOWNPerformed By: #### 50709, 41, 7600 #### [facility] [address], [address] [place] [address] Concessions Manager: Aron Almendarez MDPSA, TOTALon 52-88-1023GJK, TOTAL1.82 ng/mL Normal< OR = 4.00Quest DiagnosticsComment on above:Result Comment: The total PSA value from this assay system is standardized against the WHO standard. The test result will be approximately 20% lower when compared to the equimolar-standardized total PSA (Chi Addison). Comparison of serial PSA results should be [...] copy faxed has been acknowledged. Queued to: [id number] Queued to: [id number] By: #### 62458, 2087, 0350 #### [facility] [address], [address] [place] [address] Concessions Manager: Aron Almendarez MD Vital Signs Date TimeVital SignValuePerforming QluquphyaWpoubwru77-77-9786 09:14-0500Blood Pressure LocationPaEmatic Solutions [facility]02-14-2025 09:14-0500Body kjagmmaksxr87.6 [degF]Ti MAC [facility]02-14-2025 09:14-0500Diastolic blood anfsfkvo72 mm[Hg]Ti MAC [facility]02-14-2025 09:14-0500Heart rate70 /minPaEmatic Solutions [facility]02-14-2025 09:14-0500Respiratory rate16 /minPaEmatic Solutions [facility]02-14-2025 09:14-0500Systolic blood nxknceri569 mm[Hg]Ti MAC [facility]10-14-2024 15:29-0400Diastolic blood qnwuipul38 mm[Hg]Ti MAC [facility]10-14-2024 15:29-0400Heart rate68 /minDiet TV [facility]10-14-2024 15:29-0400Systolic blood tzxcxgso216 mm[Hg]Ti MAC [facility]09-11-2023 15:53-0400Blood Pressure LocationPakathrine MAC [facility]09-11-2023 15:53-0400Body cghkyeuzelu77.42 [degF]Ti MAC [facility]09-11-2023 15:53-0400Diastolic blood htvnerow02 mm[Hg]Ti MARIAN [facility]09-11-2023 15:53-0400Heart rate88 /minTi MAC [facility]09-11-2023 15:53-0400Systolic blood ekjfyqno637 mm[Hg]Ti MARIAN [facility]06-26-2023 15:23-0400Blood Pressure LocationTi MAC [facility]06-26-2023 15:23-0400Diastolic blood vpunyzmf32 mm[Hg]Ti MAC [facility]06-26-2023 15:23-0400Heart rate70 /minPakathrine MAC [facility]06-26-2023 15:23-0400Respiratory rate16 /minPakathrine MAC [facility]06-26-2023 15:23-0400Systolic blood bxrxypjf675 mm[Hg]Timallorie MAC [facility] Encounters Encounter DateEncounter TypeCare ProviderFacilityStart: 88-49-5054fuzqaeqyhs Willis Valle NILDionyFacility:[facility]art: 36-05-4119aypgjldnfsVtvcvw L. Bobbs Facility:FT ueStart: 07-10-2025 End: 34-00-9477lcqygydmwwEglcvu L. BobbsFacility:FT [place]vueStart: 02-26-2025 End: 61-30-9750qzbhrcvtqwSmmvepl R WATERSFacility:FTMCStart: 02-26-2025 End: 20-19-7980Jsx Drop offPatrick R MARIAN [facility] Start: 02-26-2025 End: 94-95-2416fopmgixvxhHohhxhr Leonard MARIANFacility:EU tart: 02-26-2025 End: 27-87-8266Rkpsblm encounter procedurePatrick R MAC [facility] [place] start: 90-64-5658sgoqqhhaxgZyouxre WATERSFacility: BellevueStart: 01-15-2025 End: 17-50-4473Saf Drop Gray Moffett [facility] Start: 01-15-2025 End: 00-49-5095hxcjytnalyGH Nehemiah MoffettFacility:[facility] ueStart: 11-13-2024 End: 05-65-5748mapaxcgkwsWZAYIEMS E PERRYFacility:FTMCStart: 11-13-2024 End: 55-12-1116Lkj Drop offJENNIFER E MARISSA [facility] Start: 11-13-2024 End: 76-44-9183ucercsnsujJORVKZFD E PERRYFacility:EU ueStart: 11-13-2024 End: 38-43-4171Vemwgun encounter procedureJENNIFER E MARISSA [facility] start: 11-03-2024 End: 44-42-3073tlzgqfzcxeOxfntlb R WATERSFacility:EU tart: 11-03-2024 End: 10-96-4998Ojvjydq encounter procedureTi MAC [facility] start: 10-30-2024 End: 86-72-9108flavlmexmzSpqmsuy R WATERSFacility:EU [place]ueStart: 10-30-2024 End: 23-93-3676Wqiwtjx encounter procedureTi MAC [facility] start: 10-26-2024 End: 76-77-4293mulclsjhwyOanIke Jaramillo MD Work Phone: [facility] Work Phone: Start: 10-26-2024 End: 83-59-1308Bqguktzw Laz Jaramillo MD Work Phone: [facility]-LAB [facility] [place] HospStart: 10-26-2024 End: 56-46-5469npfsxegonmOgyxcwu R WATERSFacility:CD:[id number]: 09-25-2024 End: 08-66-0390zhskyqaneyCjtmvmg R WATERSFacility:CD:[id number]: 07-17-2024 End: 66-85-7172hkcfsplkwwBGKel MoffettFacility:FT FM tart: 07-03-2024 End: 43-83-5283eheqxcrwseDujkbtp R WATERSFacility:EU tart: 07-03-2024 End: 19-45-9838Wwvheam encounter procedureTi MAC [facility] start: 12-24-2023 End: 02-31-2048Fnizphx encounter procedureTi Valle MAC [facility] start: 12-17-2023 End: 22-33-7471Vdggzvr encounter procedureSwiley NatachaJennifer Moffett [facility] Start: 05-31-2023 End: 11-72-0629Gqqchur encounter procedurePakathrine Valle MAC [facility] start: 03-15-2023 End: 24-93-5895Kenbfvf encounter procedureTi Valle MAC [facility] start: 11-29-2021 End: 04-01-4495opaemnalzdWP TI MACFacility:H1 Procedures DateProcedureProcedure DetailPerforming ClinicianStart: 97-31-4984Pdhpqqcvlr Ti MAC Start: 01-29-8788Grzeatrtcktym prostatectomyPakathrine MAC Start: 31-34-7649Rdhsnutblrdhw resection of bladder neoplasmTi MAC Start: 30-96-5502YUW screeningDR TI MACComment on above:Performed By: #### PSAD #### [facility] [address] [place] [address] Dr. Ray BarajasStart: 14-20-5640JwetfxmcfjSnkmeyz WATERS ColonoscopyTi MAC Plan of Treatment DateCare ActivityDetailAuthorStart: 55-45-5025xddznjwosbJsdfbfmgfgUoafrrjo:[place] Immunizations Immunization DateImmunizationNotesCare LrvqxfczYwwpjteh44-36-6486ITAC-VeH-5 (COVID-19) Ad26 vaccine, recombinantPatrick MAC [facility] on above:Result Comment: 2023-03-15: [id number]-ZqK-4 (COVID-19) Ad26 vaccine, recombinantPatrick MAC [facility] on above:Result Comment: 2023-03-15: [id number]-BsO-4 (COVID-19) Ad26 vaccine, recombinantPatrick MAC [facility] HospitalNEGATED: Highlighted row has not occurred!05-70-0681lujojxaya virus vaccine, unspecified formulationPatrick BaubleBar [facility] Payers DatePayer CategoryPayerPolicy [id number] Health [id number] 2..1.682277.3.57[id number] 2..1.106473.3.57[id number] 2.0.1.957124.3.57[id number] 2..1.839299.3.57[id number] 2..1.716959.3.57[id number] 2.16.840.1.693962.3.57[id number] 2.16.840.1.394684.3.57[id number] 2.16.840.1.173969.3.57[id number] 2.16.840.1.970419.3.57[id number] 2.16.840.1.054316.3.57[id number] 2.16.840.1.897800.3.57[id number] 2.16.840.1.342396.3.57[id number] 2.16.840.1.079514.3.57[id number] 2.16.840.1.367512.3.57[id number] 2.16.840.1.537818.3.57[id number] 2.16.840.1.759837.3.57[id number] 2.16.840.1.880926.3.57[id number] 2.16.840.1.195440.3.57[id number] 2.16.840.1.638854.3.579.2.531 Social History DateTypeDetailFacilityStart: 22-36-2669Acjcsro smoking statusHeavy tobacco smoker (finding)[facility] smoking statusNeverExec[facility] of [facility] [place]vueSex Assigned At [facility]: 05-31-2023 End: 19-70-2082Qtlawsx smoking statusLight tobacco smoker (finding)[facility] smoking status NHIS Unknown [facility] Work Phone: Start: 01-01-2010 End: 16-17-1510JjcFeul (finding)[facility]: 31-95-2798Akw Assigned At [facility] Functional Status YjgaQyudyflcxeMqruxuCbadmerm05-31-5498Ijwuhwnzxb StatusN/A[facility]10-14-2024Functional StatusN/A[facility]04-05-2024Functional StatusN/A [facility]09-11-2023Functional StatusN/A[facility]06-26-2023 Functional StatusN/A[facility] Clinical Notes 03-15-2023 to 02-26-2025 Note Date & LxaaCzjvKcnwscky92-66-1587 Hospital Discharge instructions Patient Education 02/26/2025 16:41:47 Urethral Stricture Urethral Stricture Urethral stricture is when the tube that drains pee (urine) from the bladder out of the body (urethra) becomes too narrow. The urethra can become narrow because of scar tissue, infection, surgery, hayley injury. This can make it difficult to pee (urinate). In females, the urethra opens above the vaginal opening. In males, the urethra opens at the tip of the penis, and the urethra is much longer than it is in females. Because of the length of the male urethra, urethral stricture is much more common in males. What are the causes? In males and females, common causes of urethral stricture include: Urinary tract infection (UTI). Sexually transmitted infection (STI). Using a soft tube in the urethra to drain pee from the bladder (urinary catheter). Urinary tract surgery. In males, common causes of urethral stricture include: A severe injury to the pelvis. Prostate surgery. Injury to the penis. In many cases, the cause of urethral stricture is not known. What increases the risk? You are more likely to develop this condition if you: Are male. Males who have had prostate surgery are at risk of developing this condition. Use a urinary catheter. Have had urinary tract surgery. What are the signs or symptoms? The main symptom of this condition is trouble peeing. This may cause decreased pee flow, dribbling,or spraying of pee. Other symptom of this condition may include: Frequent UTIs. Blood in the pee. Pain when peeing. Swelling of the penis in males. Not being able to pee. How is this diagnosed? This condition may be diagnosed based on: Your medical history and a physical exam. Tests of your pee to check for infection or bleeding. X-rays. Ultrasound. Retrograde urethrogram. With this test, a dye is injected into the urethra and then an X-ray is taken. Urethroscopy. This is when a thin tube with a light and camera on the end (urethroscope) is used tolook at the urethra. A CT scan or MRI. How is this treated? This condition is treated with surgery or other procedures. The type of surgery that you have depends on the severity of your condition. You may have: Urethral dilation. In this procedure, the narrow part of the urethra is stretched open (dilated) with dilating instruments or a small balloon. Urethrotomy. In this procedure, a urethroscope is placed into the urethra, and the narrow part of the urethra is cut open with a surgical blade or laser inserted through the urethroscope. Urethroplasty. In this procedure, an incision is made in the urethra and the narrow part is removed. Then, the urethra is reconstructed. Follow these instructions at home: Take zwmk-iiu-tplecaw and prescription medicines only as told by your health care provider. If you were prescribed antibiotics, take them as told by your provider. Do not stop using the antibiotic even if you start to feel better. Drink enough fluid to keep your pee pale yellow. Keep all follow-up visits. Your provider will check your healing and adjust your treatment plan as needed. Contact a health care provider if: You have frequent peeing or you are only peeing small amounts often. You feel the need to pee urgently. You have pain or burning when you pee. Your pee smells bad or unusual. Your pee is bloody or cloudy. You have pain in your lower abdomen or back. Your genital area is swollen, bruised, or discolored. This includes: ?The penis, scrotum, and inner thighs for males. ?The outer genital organs (vulva) and inner thighs for females. You have a fever. You develop swelling in your legs. Get help right away if: You cannot pee. You have trouble breathing. These symptoms may be an emergency. Get help right away. Call 911. Do not wait to see if the symptoms will go away. Do not drive yourself to the hospital. This information is not intended to replace advice given to you by your health care provider. Make sure you discuss any questions you have with your health care provider. Document Revised: 07/01/2023 Document Reviewed: 07/01/2023 [employer] Patient Education 2023 [employer]. Follow Up Care 11/03/2024 10:17:09 With:MARIAN GLEASON, Ti Valle, URL Address: [facility] [address] , [place] [address]- When: Unknown [facility] 06-09-2025 NotePatient Education Urology Urethral Stricture Urethral stricture is when the tube that drains pee (urine) from the bladder out of the body (urethra) becomes too narrow. The urethra can become narrow because of scar tissue, infection, surgery, hayley injury. This can make it difficult to pee (urinate). In females, the urethra opens above the vaginal opening. In males, the urethra opens at the tip of the penis, and the urethra is much longer than it is in females. Because of the length of the male urethra, urethral stricture is much more common in males. What are the causes? In males and females, common causes of urethral stricture include: ??? Urinary tract infection (UTI). ??? Sexually transmitted infection (STI). ??? Using a soft tube in the urethra to drain pee from the bladder (urinary catheter). ??? Urinary tract surgery. In males, common causes of urethral stricture include: ??? A severe injury to the pelvis. ??? Prostate surgery. ??? Injury to the penis. In many cases, the cause of urethral stricture is not known. What increases the risk? You are more likely to develop this condition if you: ??? Are male. Males who have had prostate surgery are at risk of developing this condition. ??? Use a urinary catheter. ??? Have had urinary tract surgery. What are the signs or symptoms? The main symptom of this condition is trouble peeing. This may cause decreased pee flow, dribbling,or spraying of pee. Other symptom of this condition may include: ??? Frequent UTIs. ??? Blood in the pee. ??? Pain when peeing. ??? Swelling of the penis in males. ??? Not being able to pee. How is this diagnosed? This condition may be diagnosed based on: ??? Your medical history and a physical exam. ??? Tests of your pee to check for infection or bleeding. ??? X-rays. ??? Ultrasound. ??? Retrograde urethrogram. With this test, a dye is injected into the urethra and then an X-ray istaken. ??? Urethroscopy. This is when a thin tube with a light and camera on the end (urethroscope) is used to look at the urethra. ??? A CT scan or MRI. How is this treated? This condition is treated with surgery or other procedures. The type of surgery that you have depends on the severity of your condition. You may have: ??? Urethral dilation. In this procedure, the narrow part of the urethra is stretched open (dilated) with dilating instruments or a small balloon. ??? Urethrotomy. In this procedure, a urethroscope is placed into the urethra, and the narrow part of the urethra is cut open with a surgical blade or laser inserted through the urethroscope. ??? Urethroplasty. In this procedure, an incision is made in the urethra and the narrow part is removed. Then, the urethra is reconstructed. Follow these instructions at home: ??? Take gyrc-vxu-teyagvr and prescription medicines only as told by your health care provider. ??? If you were prescribed antibiotics, take them as told by your provider. Do not stop using the antibiotic even if you start to feel better. ??? Drink enough fluid to keep your pee pale yellow. ??? Keep all follow-up visits. Your provider will check your healing and adjust your treatment [place] needed. Contact a health care provider if: ??? You have frequent peeing or you are only peeing small amounts often. ??? You feel the need to pee urgently. ??? You have pain or burning when you pee. ??? Your pee smells bad or unusual. ??? Your pee is bloody or cloudy. ??? You have pain in your lower abdomen or back. ??? Your genital area is swollen, bruised, or discolored. This includes: ? The penis, scrotum, and inner thighs for males. ? The outer genital organs (vulva) and inner thighs for females. ??? You have a fever. ??? You develop swelling in your legs. Get help right away if: ??? You cannot pee. ??? You have trouble breathing. These symptoms may be an emergency. Get help right away. Call 911. ??? Do not wait to see if the symptoms will go away. ??? Do not drive yourself to the hospital. This information is not intended to replace advice given to you by your health care provider. Make sure you discuss any questions you have with your health care provider. Document Revised: 07/01/2023 Document Reviewed: 07/01/2023 [employer] Patient Education ? 2023 [employer].[facility] 11-03-2024 Hospital Discharge instructions Patient Education 11/03/2024 10:05:03 Benign Prostatic Hyperplasia Benign Prostatic Hyperplasia Benign prostatic hyperplasia (BPH) is an enlarged prostate gland that is caused by the normal agingprocess. The prostate may get bigger as a man gets older. The condition is not caused by cancer. The prostate is a walnut-sized gland that is involved in the production of semen. It is located in front of the rectum and below the bladder. The bladder stores urine. The urethra carries stored urine ou t of the body. An enlarged prostate can press on the urethra. This can make it harder to pass urine. The buildup of urine in the bladder can cause infection. Back pressure and infection may progress to bladder damage and kidney (renal) failure. What are the causes? This condition is part of the normal aging process. However, not all men develop problems from thiscondition. If the prostate enlarges away from the [...] urethra. Follow these instructions at home: Take vdlt-mmr-seftqgu and prescription medicines only as told by [...] provider. Document Revised: 03/25/2022 Document Reviewed: 03/25/2022 [employer] Patient Education 2023 [employer]. Follow Up Care 10/05/2024 13:47:01 With:MARIAN GLEASON, Ti Valle, URL Address: [address] [place], [place] [id number]- When: Unknown [facility] NotePatient Education Urology Benign Prostatic Hyperplasia Benign prostatic hyperplasia (BPH) is an enlarged prostate gland that is caused by the normal agingprocess. The prostate may get bigger as a man gets older. The condition is not caused by cancer. The prostate is a walnut-sized gland that is involved in the production of semen. It is located in front of the rectum and below the bladder. The bladder stores urine. The urethra carries stored urine ou t of the body. An enlarged prostate can press on the urethra. This can make it harder to pass urine. The buildup of urine in the bladder can cause infection. Back pressure and infection may progress to bladder damage and kidney (renal) failure. What are the causes? This condition is part of the normal aging process. However, not all men develop problems from thiscondition. If the prostate enlarges away from the urethra, urine flow will not be blocked. If it enlarges toward the urethra and compresses it, there will be problems passing urine. What increases the risk? This condition is more likely to develop in men older than 50 years. What are the signs or symptoms? Symptoms of this condition include: ??? Getting up often during the night to urinate. ??? Needing to urinate frequently during the day. ??? Difficulty starting urine flow. ??? Decrease in size and strength of your urine stream. ??? Leaking (dribbling) after urinating. ??? Inability to pass urine. This needs immediate treatment. ??? Inability to completely empty your bladder. ??? Pain when you pass urine. This is more common if there is also an infection. ??? Urinary tract infection (UTI). How is this diagnosed? This condition is diagnosed based on your medical history, a physical exam, and your symptoms. Tests will also be done, such as: ??? A post-void bladder scan. This measures any amount of urine that may remain in your bladder after you finish urinating. ??? A digital rectal exam. In a rectal exam, your health care provider checks your prostate by putting a lubricated, gloved finger into your rectum to feel the back of your prostate gland. This exam detects the size of your gland and any abnormal lumps or growths. ??? An exam of your urine (urinalysis). ??? A prostate specific antigen (PSA) screening. This is a blood test used to screen for prostate cancer. ??? An ultrasound. This test uses sound waves [...] severity of your condition. Treatment may include: ??? Observation and yearly exams. This may be the only treatment needed if your condition and symptoms are mild. ??? Medicines to relieve your symptoms, including: ? Medicines to shrink the prostate. ? Medicines to relax the muscle of the prostate. ??? Surgery in severe cases. Surgery may include: ? Prostatectomy. In this procedure, the prostate tissue is removed completely through an open incision or with a laparoscope or robotics. ? Transurethral resection of the prostate (TURP). In this procedure, a tool is inserted through theopening at the tip of the penis (urethra). [...] procedure uses radio frequencies to destroy and removea small amount of prostate tissue. ? Interstitial laser coagulation (ILC). This procedure uses a laser to destroy and remove a small amount of prostate tissue. ? Transurethral electrovaporization (TUVP). This procedure uses electrodes to destroy and remove a small amount of prostate tissue. ? Prostatic urethral lift. This procedure inserts an implant to push the lobes of the prostate awayfrom the urethra. Follow these instructions at home: ??? Take rffl-uve-akkirzh and prescription medicines only as told by your health care provider. ??? Monitor your symptoms for any changes. Contact your health care provider with any changes. ??? Avoid drinking large amounts of liquid before going to bed or out in public. ??? Avoid or reduce how much caffeine or alcohol you drink. ??? Give yourself time when you urinate. ??? Keep all follow-up visits. This is important. Contact a health care provider if: ??? You have unexplained back pain. ??? Your symptoms do not get (more content not included)...[facility]10-28-2024 NotePatient Education Nutrition BMI for Adults Body mass [...] This can help you reach a healthy weight.BMI screening can be done again to see if these changes are working. How is BMI calculated? Your height and weight are measured. The BMI is found from those numbers. This can be done with [place] or metric measurements. Note that charts and online BMI calculators are available to help you findyour BMI quickly and easily without doing these [...] measurement is 1.75 m x 1.75 m, whichequals 3.1 meters squared. 3. Divide the number of kilograms (your weight) by the meters squared number. In this example: 70 ?3.1 = 22.6. This is your BMI. What [...] for Disease Control and Prevention: cdc.gov ??? [place] [employer]: heart.org ??? National Heart, Lung, and Blood [place]: nhlbi.nih.gov This information is not intended to replace advice given to you by your health care provider. Make sure you discuss any questions you have with your health care provider. Document Revised: 05/27/2023 Document Reviewed: 05/20/2023 [employer] Patient Education ? 2023 [employer].[facility] 07-03-2024 Hospital Discharge instructions Patient Education 07/03/2024 16:13:29 Prostatitis Prostatitis Prostatitis is swelling or inflammation of the prostate gland, also called the prostate. This glandis about 1.5 inches wide and 1 inch [...] quickly and results from an acute bacterial infectionin the prostate gland. It is usually associated [...] when the body's disease-fighting system attacks healthy tissuein the body by mistake. Psychological factors. These [...] Follow these instructions at home: Medicines Take cuvm-wza-mpkavvp and prescription medicines only as told by your health care provider. If you were prescribed an antibiotic medicine, take it as told by your health care provider. Do notstop using the antibiotic even if you start to feel better. Managing pain and swelling Take sitz baths as directed by your health care provider. For a sitz bath, sit in warm water that is deep enough to cover your hips and buttocks. If directed, apply heat to the affected area as often as told by your health care provider. Use theheat source that your health care provider recommends, [...] important. Where to find more information National [place] of Diabetes and Digestive and Kidney Diseases: [...] depends on the type of prostatitis. Take ndhu-jyq-wbwgxmc and prescription medicines only as told by your health care provider. Get help right away of you have chills, feel light-headed, feel like you may faint, cannot urinate,or have blood or blood clots in your urine. This information is not intended to replace advice given to you by your health care provider. Make sure you discuss any questions you have with your health care provider. Document Revised: 07/22/2023 Document Reviewed: 07/22/2023 [employer] Patient Education 2023 [employer]. 07/03/2024 16:13:27 Cystoscopy Cystoscopy Cystoscopy is a [...] including vitamins, herbs, eye drops, creams, and wuiq-fdf-gcbljdo medicines. Any problems you or family members [...] provider tells you to take them. Taking ecnr-oti-uixvnqy medicines, vitamins, herbs, and supplements. Tests You [...] Follow these instructions at home: Medicines Take jgmd-vjx-tpsyqvk and prescription medicines only as told by your health care provider. If you were prescribed an antibiotic medicine, take it as told by your health care provider. Do notstop taking the antibiotic even if you start [...] blood in your urine increases, call your healthcare provider. Follow instructions from your health care provider about eating or drinking restrictions. If a tissue sample was removed for testing (biopsy) during your procedure, it is up to you to get your test results. Ask your health care provider, or the department that is doing the test, when yourresults will be ready. Drink enough fluid to [...] blood in your urine increases, call your healthcare provider. If you were prescribed an antibiotic medicine, take it as told by your health care provider. Do notstop taking the antibiotic even if you start to feel better. This information is not intended to replace advice given to you by your health care provider. Make sure you discuss any questions you have with your health care provider. Document Revised: 05/20/2022 Document Reviewed: 04/18/2021 [employer] Patient Education 2023 [employer]. 07/03/2024 16:13:24 Benign Prostatic Hyperplasia Benign Prostatic Hyperplasia Benign prostatic hyperplasia (BPH) is an enlarged prostate gland that is caused by the normal agingprocess. The prostate may get bigger as a man gets older. The condition is not caused by cancer. The prostate is a walnut-sized gland that is involved in the production of semen. It is located in front of the rectum and below the bladder. The bladder stores urine. The urethra carries stored urine ou t of the body. An enlarged prostate can press on the urethra. This can make it harder to pass urine. The buildup of urine in the bladder can cause infection. Back pressure and infection may progress to bladder damage and kidney (renal) failure. What are the causes? This condition is part of the normal aging process. However, not all men develop problems from thiscondition. If the prostate enlarges away from the [...] urethra. Follow these instructions at home: Take ghfx-wkk-smmhijr and prescription medicines only as told by [...] provider. Document Revised: 03/25/2022 Document Reviewed: 03/25/2022 [employer] Patient Education 2023 [employer]. Follow Up Care 12/24/2023 13:10:49 With:MARIAN GLEASON, Ti Valle, URL Address: [facility] [address], [place] [phone] When: Unknown [facility] 10-14-2024 NotePatient Education Infectious Disease Prostatitis Prostatitis is swelling or inflammation of the prostate gland, also called the prostate. This glandis about 1.5 inches wide and 1 inch [...] tone in the area between the hip bones(pelvic area), around the prostate. This type is also known as a pelvic floor disorder. ? Chronic bacterial prostatitis. This type usually results from an acute bacterial infection in theprostate gland that keeps coming back or has [...] with a bladder infection, high fever, and chills.This is the least common type of prostatitis. [...] of your body that drains urine from thebladder (urethra). How is this treated? Treatment for [...] these instructions at home: Medicines ? Take oxpn-mei-vohywxs and prescription medicines only as told by [...] a sitz bath, sit in warm water thatis deep enough to cover your hips and [...] Where to find more information ? National [place] of Diabetes and Digestive a (more content not included)... [facility]04-05-2024 Hospital Discharge instructions Patient Education 12/24/2023 13:03:55 Benign Prostatic Hyperplasia Benign Prostatic Hyperplasia Benign prostatic hyperplasia (BPH) is an enlarged prostate gland that is caused by the normal agingprocess. The prostate may get bigger as a man gets older. The condition is not caused by cancer. The prostate is a walnut-sized gland that is involved in the production of semen. It is located in front of the rectum and below the bladder. The bladder stores urine. The urethra carries stored urine ou t of the body. An enlarged prostate can press on the urethra. This can make it harder to pass urine. The buildup of urine in the bladder can cause infection. Back pressure and infection may progress to bladder damage and kidney (renal) failure. What are the causes? This condition is part of the normal aging process. However, not all men develop problems from thiscondition. If the prostate enlarges away from the [...] urethra. Follow these instructions at home: Take wiaf-nye-zgwfbxr and prescription medicines only as told by [...] provider. Document Revised: 03/25/2022 Document Reviewed: 03/25/2022 [employer] Ring Patient Education 2022 [employer]. Follow Up Care 12/02/2023 14:22:38 With:MARIAN GLEASON, Ti Valle, URL Address: [address] [place], [place] [id number]- When: Unknown [facility] 09-11-2023 Hospital Discharge instructions Patient Education 05/31/2023 17:07:06 Prostatitis Prostatitis Prostatitis is swelling or inflammation of the prostate gland, also called the prostate. This glandis about 1.5 inches wide and 1 inch [...] quickly and results from an acute bacterial infectionin the prostate gland. It is usually associated [...] when the body's disease-fighting system attacks healthy tissuein the body by mistake. Psychological factors. These [...] Follow these instructions at home: Medicines Take hypw-qmd-tjxrznw and prescription medicines only as told by your health care provider. If you were prescribed an antibiotic medicine, take it as told by your health care provider. Do notstop using the antibiotic even if you start to feel better. Managing pain and swelling Take sitz baths as directed by your health care provider. For a sitz bath, sit in warm water that is deep enough to cover your hips and buttocks. If directed, apply heat to the affected area as often as told by your health care provider. Use theheat source that your health care provider recommends, [...] important. Where to find more information National [place] of Diabetes and Digestive and Kidney Diseases: [...] depends on the type of prostatitis. Take yvny-xtf-cddvsap and prescription medicines only as told by your health care provider. Get help right away of you have chills, feel light-headed, feel like you may faint, cannot urinate,or have blood or blood clots in your urine. This information is not intended to replace advice given to you by your health care provider. Make sure you discuss any questions you have with your health care provider. Document Revised: 10/11/2020 Document Reviewed: 10/11/2020 [employer] Patient Education 2022 [employer]. Follow Up Care 03/15/2023 16:02:27 With:MARIAN GLEASON, Ti Valle, URL Address: [facility] [address], [place] [phone] When:Within 6 Month(s) Comments:PSA [facility] [place] 06-26-2023 Hospital Discharge instructions Patient Education 03/15/2023 08:45:43 Prostate Cancer Screening Prostate Cancer Screening Prostate cancer screening is testing that is done to check for the presence of prostate cancer in men. The prostate gland is a walnut-sized gland that is located below the bladder and in front of therectum in males. The function of the prostate is to add fluid to semen during ejaculation. Prostatecancer is one of the most common types of cancer in men. Who should have prostate cancer screening? Screening recommendations vary based on age and other risk factors, as well as between the professional organizations who make the recommendations. In general, screening is recommended if: You are age 50 to 70 and have an average risk for prostate cancer. You should talk with your healthcare provider about your need for screening and [...] diagnosed with prostate cancer. The risk is higherif your family member's cancer occurred at an early age or if you have multiple family members withprostate cancer at an early age. ?Being a [...] is a blood test called the prostate-specific antigen(PSA) test. PSA is a protein that is [...] treatment? Where to find more information The [place] [employer]: www.cancer.org [place] [employer]: www.auanet.org Contact a health care [...] the recommended screening test for prostate cancer, butit has associated risks. Discuss the risks and [...] provider. Document Revised: 03/02/2022 Document Reviewed: 03/02/2022 [employer] Ring Patient Education 2022 [employer]. Follow Up Care 12/29/2021 10:29:34 With:Ti MAC MD, URL Address: [facility] [address], [place] [address]- When: Unknown [facility] evaluation + Plan note Future Appointments Appointment Date:05/31/2023 03:30:00 PM Scheduled Provider:Ti MAC MD Location:[facility] Appointment Type:URO Office Visit Diagnostic Tests Pending * PSA Free & Total 03/15/23 [facility] evaluation + Plan note Future Appointments Appointment Date:12/06/2023 03:00:00 PM Scheduled Provider:Ti MAC MD Location:[facility] Appointment Type:URO Office Visit Diagnostic Tests Pending * PSA Total 05/31/23 [facility] evaluation + Plan note Future Appointments Appointment Date:12/24/2023 11:00:00 AM Scheduled Provider:Ti MAC MD Location:[facility] Appointment Type:URO Office Visit Appointment Date:01/17/2024 05:00:00 PM Scheduled Provider:Nehemiah Moffett MD Location:[facility] Appointment Type: Open Diagnostic Tests Pending * Reference Lab Notification 12/17/23 Future Scheduled Tests Laboratory* PSA Screen, Total 12/13/23 * CBC w/ Auto Diff 12/13/23 * Comprehensive Metabolic Panel 12/13/23 * Lipid Panel 12/13/23 Radiology* CT Chest, Low Dose Screening [facility]13[facility]23 [facility] App[facility]ments Appointment Date:01/17/2024 05:00:00 PM Scheduled Provider:Nehemiah Moffett MD Location:[facility] Appointment Type:FM Open Appointment Date:07/03/2024 03:00:00 PM Scheduled Provider:Ti MAC MD Location:[facility] Appointment Type:URO Office Visit Diagnostic Tests Pending * PSA Total 04/20/24 Future Scheduled Tests Radiology* CT Chest, Low Dose Screening 12/13/23 [facility] evaluation + Plan note Future Appointments Appointment Date:07/17/2024 05:45:00 PM Scheduled Provider:Nehemiah Moffett MD Location:[facility] Appointment Type: Open Future Scheduled Tests Radiology* US Abdominal Aorta screening for AAA 01/17/24 * CT Chest, Low Dose Screening 12/13/23 * CT Chest, Low Dose Screening 01/17/24 [facility] evaluation + Plan note Future Appointments Appointment Date:11/03/2024 09:15:00 AM Scheduled Provider:Ti MAC MD Location:[facility] Appointment Type:URO Office Visit Appointment Date:01/15/2025 05:45:00 PM Scheduled Provider:Nehemiah Moffett MD Location:[facility] Appointment Type:FM Preventative Visit Future Scheduled Tests Radiology* US Abdominal Aorta screening for AAA 01/17/24 * CT Chest, Low Dose Screening 12/13/23 * CT Chest, Low Dose Screening 01/17/24 [facility] evaluation + Plan note Future Appointments Appointment Date:01/15/2025 05:45:00 PM Scheduled Provider:Nehemiah Moffett MD Location:[facility] Appointment Type:FM Preventative Visit Appointment Date:02/05/2025 02:45:00 PM Scheduled Provider:Ti MAC MD Location:[facility] Appointment Type:URO Office Visit Future Scheduled Tests Radiology* US Abdominal Aorta screening for AAA 01/17/24 * CT Chest, Low Dose Screening 12/13/23 * CT Chest, Low Dose Screening 01/17/24 [facility] evaluation + Plan note Future Appointments Appointment Date:01/15/2025 05:45:00 PM Scheduled Provider:Nehemiah Moffett MD Location:[facility] Appointment Type: Preventative Visit Appointment Date:02/05/2025 02:45:00 PM Scheduled Provider:Ti MAC MD Location:[facility] Appointment Type:URO Office Visit Diagnostic Tests Pending * Urine Culture 11/13/24 Future Scheduled Tests Radiology* US Abdominal Aorta screening for AAA 01/17/24 * CT Chest, Low Dose Screening 12/13/23 * CT Chest, Low Dose Screening 01/17/24 [facility] Evaluation + Plan note Future Appointments Appointment Date:02/05/2025 02:45:00 PM Scheduled Provider:Ti MAC MD Location:[facility] Appointment Type:URO Office Visit Appointment Date:07/16/2025 05:00:00 PM Scheduled Provider:Nehemiah Moffett MD Location:[facility] Appointment Type: Open Diagnostic Tests Pending * CBC w/ Auto Diff 01/15/25 * Comprehensive Metabolic Panel 01/15/25 * Lipid Panel 01/15/25 Future Scheduled Tests Radiology* US Abdominal Aorta screening for AAA 01/17/24 * CT Chest, Low Dose Screening 01/17/24 * CT Chest, Low Dose Screening 01/15/25 [facility] evaluation + Plan note Future Appointments Appointment Date:07/16/2025 05:00:00 PM Scheduled Provider:Nehemiah Moffett MD Location:[facility] Appointment Type:FM Open Appointment Date:09/03/2025 03:00:00 PM Scheduled Provider:Ti MAC MD Location:[facility] Appointment Type:URO Office Visit Future Scheduled Tests Radiology* CT Chest, Low Dose Screening 01/16/25 [facility] evaluation + Plan note Future Appointments Appointment Date:07/16/2025 05:00:00 PM Scheduled Provider:Nehemiah Moffett MD Location:[facility] Appointment Type: Open Appointment Date:09/03/2025 03:00:00 PM Scheduled Provider:Ti MAC MD Location:[facility] Appointment Type:URO Office Visit Diagnostic Tests Pending * PSA Total 02/26/25 Future Scheduled Tests Radiology* CT Chest, Low Dose Screening 01/16/25 [facility] evaluation noteNo assessment information available [facility] Work Phone: Hospital course Narrative No data available for this section [facility] Discharge instructions No data available for this section [facility] No data available for this section [facility] Summary Purpose Family History No Family History Records Found Relationship Condition Age at Onset Recorded Date/T hussein father Unknown motherDeceasedUnknown Advance Directives No Advanced Directives Records Found Advance Directive Response Recorded Date/ Time Advance Directives No October 27, 2024 12:07pm Additional Source Comments (unrecognized sect ion and content) No Status Records FoundNo Status Records FoundNo Status Records FoundNo Status Records FoundNo Status Records FoundNo Status Records FoundNo Status Records FoundNo Status Records FoundNo Status Records FoundNo Status Records FoundNo Status Records FoundNo Status Records Found INFORMATION SOURCE (unrecogn ized section and content) DATE CREATED AUTHOR 12/03/2021 [facility] DATE CREATED AUTHOR AUTHOR'S ORGANIZ ATION 12/18/2023 [facility] DATE CREATED AUTHOR AUTHOR'S ORGANIZ ATION 11/05/2024 [facility] DATE CREATED AUTHOR AUTHOR'S ORGANIZ ATION 11/08/2024 [facility] DATE CREATED AUTHOR AUTHOR'S ORGANIZ ATION 11/17/2024 [facility] DATE CREATED AUTHOR AUTHOR'S ORGANIZ ATION 01/18/2025 [facility] [facility] DATE CREATED AUTHOR AUTHOR'S ORGANIZ ATION 02/27/2025 [facility] DATE CREATED AUTHOR AUTHOR'S ORGANIZ ATION 07/12/2025 [facility] DATE CREATED AUTHOR AUTHOR'S ORGANIZ ATION 07/21/2025 [facility] Patient Care team informatio n (unrecognized section and content) Personnel Name: Nehemiah Moffett MD Address: [address] [place] [address] [employer] Team Status: Active Member Role Status Dates Tamia Jaramillo MD Primary Care Provider Active Team Status: Inactive Member Role Status Dates Tamia Jaramillo MD Primary Care Provider Active S tart: October 26, 2024 End: October 26, 2024PaRegino Velazquez ProviderActiveStart: October 26, 2024 End: October 26, 2024 Personnel Name: Nehemiah Moffett MD Address: Address: [facility] Goals (unrecognized section and content) Goals may be documented in a n alternate section FOR RECORDS PERTAINING TO PATIENTS WHO ARE [...] BE BASED ON THE PRIMARY CLINICAL RECORDS. [facility]. provides no warranty or guarantee of the accuracy or completeness of information in this document.
--- NOTE | 2025-08-07 13:30 | CT_ITS ---
The [address] [address] Patient Name: LANA CUELLAR MRN: [id number] date: 1960 Sex: M Assigned Patient Location: CT Current Patient Location: CT Accession/Order Number: [id number] Exam Date: 08/07/2025 13:43 Report Date: 08/07/2025 19:54 At the request of: NON-STAFF PHYSICIAN MD Procedure: CT lung screening low-dose CT Chest lung screening without contrast TECHNIQUE: Axial imaging with 2-D reconstruction. The CT exam was performed using one or more the following dose reduction techniques: Automated exposure control, adjustment of the MA and/or Kv according to patient size, or use of the iterative reconstruction technique. History: 40 pack year smoker COMPARISON: None THYROID: Unremarkable TRACHEA AND BRONCHI: Patent ESOPHAGUS: Unremarkable. HEART: Within normal limits PERICARDIAL EFFUSION: None CORONARY ARTERY CALCIFICATION: None MEDIASTINUM: No adenopathy. No pneumoperitoneum. No mediastinal hematoma. PULMONARY CHARLEEN: No hilar mass or adenopathy is seen. THORACIC AORTA Unremarkable LUNG NODULE None LUNGS: Calcified granulomas. No consolidation. PLEURAL EFFUSION: None PNEUMOTHORAX: No pneumothorax seen. CHEST WALL: No abnormality AXILLA:Unremarkable BONY STRUCTURES Intact UPPER ABDOMEN: Images of the upper abdomen are noncontributory. CT/CT lung screening low-dose IMPRESSION: No visible lung nodule. FINAL ASSESSMENT: Negative. Lung-RADS Version 1.0 Assessment Category: 1 REMARKS: Continued annual screening with LDCT in 12 months is recommended. Impression dictated by: Patrick Willis M.D. 08/07/2025 7:54 PM [facility]ict[facility] Electron[facility] authenticated by: [id number] Y Date: 08/07/2025 19:54
--- NOTE | 2025-08-07 13:30 | XR_ITS ---
The [address] [address] Patient Name: LANA CUELLAR MRN: [id number] date: 1960 Sex: M Assigned Patient Location: CT Current Patient Location: CT Accession/Order Number: [id number] Exam Date: 08/07/2025 13:35 Report Date: 08/07/2025 19:46 At the request of: NON-STAFF PHYSICIAN MD Procedure: XR hand LT min 3V 3 views left hand HISTORY: Left thumb pain for one year. Adequate alignment without acute displaced fracture. Mild first carpometacarpal degeneration. Mild interphalangeal degeneration. No soft tissue calcification. XR/XR hand LT min 3V IMPRESSION: Degenerative change. Impression dictated by: Patrick Willis M.D. 08/07/2025 7:46 PM Dictation Location: [place] [address] Electronically authenticated by: [id number] Y Date: 08/07/2025 19:46
== END 2025-08-07 13:23 | disposition home or self-care (01) ==
LOC: CT 13:25
DX: M79.642 Pain in left hand (principal); Z12.2 Encounter for screening for malignant neoplasm of respiratory organs; Z72.0 Tobacco use; M19.042 Primary osteoarthritis, left hand
CPT/HCPCS: 71271; 73130

== ENCOUNTER 2025-08-30 07:20 | Outpatient (OUT) | payer OTHER, SELFPAY ==
--- OUTSIDE RECORDS SUMMARY | 2025-08-30 07:22 | XMS_ITS | CCD ---
Demographics Address [address] [place] [address] Preferred Language en Marital Status Latter Day Affiliation Unknown Race White Ethnic Group Not or Lati no Author Organization [facility] CliniSyar Care Team Providers Care Fare Collector Name Role Phone DR TI MAC Attending Unavailable MARIAN, DR RIOS Consulting Unavailable MARIAN, DR RIOS Admitting Unavailable DR TAMIA JARAMILLO Primary Care Unavailable Nehemiah Moffett Primary Care Physician Clint GLEASON, Tamia Manzano Primary Care Provider Ti Mac MD Attending Provider Tamia Jaramillo Primary Care Unavailable Ti Mac Attending Unavailable Ti Mac Admitting Unavailable MD Nehemiah Moffett Attending Unavailable MARIAN, Ti Valle Attending Unavailable DEANGELO ANN Attending Unavailable MAC, Ti Valle Attending Unavailable MAC, Ti Valle Attending Unavailable MAC, Ti Valle Attending Unavailable MARISSADEANGELO LEVINE Admitting Unavailable DEANGELO ANN Attending Unavailable MARIAN, iT Valle Attending Unavailable MARIAN, Ti Valle Attending Unavailable MD Nehemiah Moffett Attending Unavailable MARIAN, Ti Valle Admitting Unavailable MARIAN, Ti Valle Attending Unavailable MD Nehemiah Moffett Admitting Unavailable MD Nehemiah Moffett Attending Unavailable Ti MAC Attending Unavailable Nehemiah oMffett Admitting Unavailable Nehemiah Moffett Attending Unavailable Palak Nuno Attending Unavailable Willis ABARCA Attending Unavailable Palak Nuno Referring Unavailable Palak Nuno Attending Unavailable Medications Current Medications MedicationDrug Class(es)DatesSig (Normalized)Sig (Original)amLODIPine 5 mg oral tablet (12 sources)Dihydropyridine Calcium Channel BlockerStart: 39-99-5385nuvd 1 tablet by mouth once dailyamLODIPine 5 mg Tab See Instructions, TAKE 1 TABLET BY MOUTH EVERY DAY, # 90 tab(s), Refills(s) 2, Pharmacy: [facility]/pharmacy #[id number], 177, cm, 07/17/24 17:45:00 EDT, Height/Length Dosing, 79.4, kg, 07/17/24 17:45:00 EDT, Weight Dosing Start Date: 07/17/24 Status: Ordered Quantity: 90.0 Unit: tab(s) Repeat number: 3Start: 85-80-0841zcrb 1 tablet by mouth once daily amLODIPine 5 mg Tab See Instructions, TAKE 1 TABLET BY MOUTH EVERY DAY, # 90 tab(s), Refills(s) 2, Pharmacy: [facility] STORE [id number], 177, cm, 01/17/24 17:03:00 EDT, Height/Length Dosing, 81.1, kg, 01/17/24 17:03:00 EDT, Weight Dosing Start Date: 06/12/24 Status: OrderedStart: 38-79-8090khkm 1 tablet by mouth once daily amLODIPine 5 mg Tab 5 mg = 1 tab(s), Oral, Daily, # 90 tab(s), Refills(s) 1, [id number], cm, 12/13/23 17:30:00 EDT, Height/Length Dosing, 81.6, kg, 12/13/23 17:30:00 EDT, Weight Dosing Start Date: 12/13/23 Status: OrderedStart: 81-05-5932puKBXIIksu 5 mg Tab Refills(s) 0 Start Date: 03/15/23 Status: Orderedatorvastatin 40 mg oral tablet (2 sources)HMG-CoA Reductase InhibitorStart: 46-73-5358zcma 1 tablet by mouth once dailyLipitor 40 mg Tab 40 mg = 1 tab(s), Oral, Daily, # 90 tab(s), Refills(s) 0, [id number], cm, 01/15/25 17:43:00 EDT, Height/Length Dosing, 78.1, kg, 01/15/25 17:43:00 EDT, WeightDosing Start Date: 01/17/25 Status: Ordered Quantity: 90.0 Unit: tab(s) Repeat number: 1 Indications: Nicotine dependence, cigarettes, uncomplicated;doxycycline hyclate 100 mg oral capsule (2 sources)Tetracycline-class DrugStart: 07-03-2024 End: 08-26-1112wbno 1 capsule by mouth twice dailydoxycycline hyclate 100 mg Cap 100 mg = 1 cap(s), Oral, BID, X 4 week(s), # 56 cap(s), Refills(s) 0, [id number], cm, 07/03/24 15:37:00 EDT, Height/Length Dosing, 80, kg, 07/03/24 15:37:00 EDT, Weight Dosing Start Date: 07/03/24 Stop Date: 07/31/24 Status: OrderedStart: 03-15-2023 End: 98-67-7478gxrk 1 capsule by mouth twice dailydoxycycline hyclate 100 mg Cap 100 mg = 1 cap(s), Oral, BID, Wear sun protection and take probiotics during the duration of this course., X 21 day(s), # 42 cap(s), Refills(s) 0, [id number] 177, cm, 03/15/23 15:25:00 EDT, Height/Length Dosing, 82, kg, 03/15/23 15:... Start Date: 03/15/23 Stop Date: 04/05/23 Status: Ordered dutasteride 0.5 mg oral capsule (3 sources)5-alpha Reductase InhibitorStart: 46-70-8366scyj 1 capsule by mouth once dailydutasteride 0.5 mg Cap 0.5 mg = 1 cap(s), Oral, Daily, # 30 cap(s), Refills(s) 11, [id number] 177, cm, 12/24/23 12:01:00 EDT, Height/Length Dosing, 80, kg, 12/24/23 12:01:00 EDT, Weight Dosing Start Date: 12/24/23 Status: Orderedtamsulosin hydrochloride 0.4 mg oral capsule (10 sources)alpha-Adrenergic BlockerStart: 07-03-2024 End: 80-85-8357sphq 1 capsule by mouth twice dailytamsulosin 0.4 mg Cap 0.4 mg = 1 cap(s), Oral, BID, X 30 day(s), # 60 cap(s), Refills(s) 11, [id number] 177, cm, 07/03/24 15:37:00 EDT, Height/Length Dosing, 80, kg, 07/03/24 15:37:00 EDT, Weight Dosing Start Date: 07/03/24 Stop Date: 06/28/25 Status: Ordered Quantity: 60.0 Unit: cap(s) Repeat number: 12Start: 03-15-2023 End: 25-38-4276ygls 1 capsule by mouth twice dailyFlomax 0.4 mg Cap 0.4 mg = 1 cap(s), Oral, BID, X 90 day(s), # 180 cap(s), Refills(s) 3, Pharmacy: [facility]/pharmacy #[id number], 177, cm, 03/15/23 15:25:00 EDT, Height/Length Dosing, 82, kg, 03/15/23 15:25:00 EDT, Weight Dosing Start Date: 03/15/23 Stop Date: 03/09/24 Status: Ordered Completed/Discontinued Medications MedicationDrug Class(es)DatesSig (Normalized)Sig (Original)ciprofloxacin 500 mg oral tablet (1 source)Quinolone AntimicrobialStart: 66-16-2635zhvo 1 tablet by mouth once dailyCipro 500 mg Tab 500 mg = 1 tab(s), Oral, Daily, Take 1 tablet the day before the procedure and 1 tablet after the procedure, # 2 tab(s), Refills(s) 0, Pharmacy: [facility]/pharmacy #[id number], 177, cm, 07/17/2417:45:00 EDT, Height/Length Dosing, 79.4, kg, 07/17/24 17:45:00 EDT, Weight Dosing Start Date: 09/22/24 Status: Ordered Problems Problem ClassificationProblemDateDocumented DateEpisodic/ChronicAbdominal hernia (12 sources)Hiatal ntszej56-06-4245LowlsyilYodnbis disorders (12 sources)Panic -01-6173PzynyqeMkdinflt mellitus without complication (1 source)Hphytvlzorudr15-23-3258DbpemotuWudzvfalc of lipid metabolism (12 sources)Annrvnsrrubsnbtrbzkt31-17-9483HlwjxfxGvzzqzmutz disorders (12 sources)Acosta's vkgbaigfp64-27-8796DglkjfpHcrtsdayd hypertension (12 sources)Hypertensive icmefpup10-27-0975DzsdbkaFwhnpkmfuxsqc symptoms and ill-defined conditions (13 sources)Nocturia; Translations: [Nocturia]Onset: [id number] EpisodicHyperplasia of prostate (20 sources)Benign prostatic hyperplasia with lower urinary tract symptoms; Translations: [Benign prostatic hypertrophy with outflow obstruction]Onset: 32-58-3764DbsyexgOessfxfpjxsi conditions of male genital organs (16 sources)Prostatitis; Translations: [Inflammatory disease of prostate, unspecified]Onset: 06-05-1631UrkjrqskKurv disorders (12 sources)Depressive ndnixzic90-48-0176QybxruuIpapn diseases of bladder and urethra (2 sources)Disorder of bladder; Translations: [Bladder disorder, unspecified] Onset: 13-73-9913YwqxoexUhjto diseases of bladder and urethra (4 sources)Lesion of tsgihru20-56-5297PcmfpibEqdvb diseases of bladder and urethra (1 source)Male urethral stricture; Translations: [Unspecified urethral stricture, male, unspecified site]Onset: 17-20-9495WjlofajiIdhpf diseases of bladder and urethra (2 sources)Urethral bblwohbck79-76-9514ZcbxhtgqBubhv male genital disorders (1 source)H/O: male genital disorder; Translations: [Personal history of other diseases of male genital organs]Onset: 30-41-8023UjpkfewyPvnsx male genital disorders (9 sources)History of mxopkjsclve96-87-1275KwtltbtiOggey screening for suspected conditions (not mental disorders or infectious disease) (19 sources)Elevated prostate specific antigen [PSA]; Translations: [Raised prostate specific antigen]Onset: 33-85-7830SdljdbjpApyrkibn codes; unclassified (1 source)Family history of malignant neoplasm of prostate; Translations: [FAMILY HX MALIG NEOPLASM PROSTATE]Onset: 74-68-8807AphtktnnObwravie codes; unclassified (6 sources)Family history of cancer; Translations: [Family history of malignant neoplasm of prostate]Onset: 95-97-2928LgdkzeneJnahkgeq codes; unclassified (12 sources)Family history of prostate ruuprj20-85-6675UjsmxqykFzkrehnks-zwlnfsy disorders (19 sources)Smoker; Translations: [Nicotine dependence]61-21-3185Mnqiqtg Unclassified (17 sources)Patient encounter fovyrk07-94-5195Flqmkfsgwctr (3 sources)Body mass index 20-24 - azhqxh50-29-0254 Results Test NameValueInterpretationReference RangeFacilityFastate reform school for boys Medicine Office/Clinic Noteon 87-38-2617Tgjpjw Medicine Office/Clinic NoteFastate reform school for boys Medicine Office/Clinic Note HPI Staff Former DR [...] and current smoker who who presented to psychiatric hospital care. Patient reported he is overall feeling [...] Patient hopes to get this done at [facility]. 8. BMI 25.0-25.9,adult (Z68.25: Body mass [...] refills Zetia 10 (more content not included)...[facility] HospitalComment on above:Result Comment: Electronically Signed By: Palak [...] PM EST With: Palak Nuno DO Where: [facility] [address] [address]- Wednesday 3:00 PM EST With: MARIAN GLEASON, Ti Valle Where: [facility] [address] [address]- You Need to Schedule the Following Appointments Follow Up with Palak Nuno DO, RICKY, PED When: In 1 month Where: Medications What How Much When Why Instructions New ezetimibe (Zetia 10 mg Tab) 1 Tablets By Mouth Every day Hyperlipemia Refills: 3 Pickup at [facility]/pharmacy #[id number] Unchanged amlodipine (amLODIPine 5 mg Tab) See instructions TAKE 1 TABLET BY MOUTH EVERY DAY [id number] Pharmacy Information [facility]/pharmacy #[id number]: [address], [place] [phone] What How Much When Why Comments Stop [...] signed up for this yet, please contact [employer] at [phone] to get signed up today. Language Information Language assistance services are available as needed. NormalFisher [facility] Baltimore Medical CenterPSA Totalon 73-03-6372EBW Total 0.3 ng/mLNormal0.1-3.5[facility] CenterComment on above:Result Comment: The concentration of PSA determined by different manufacturers can vary due to differences in assay methods and reagent specificity. Values obtained from different assay methods cannot be used interchangeably. The methodology used for this result was chemiluminescence using [employer] Access Hybritech PSA reagent.Performed By: #### [id number] #### [facility] [address] [place], [place] [address]Ftdghhxwmr Visit Summaryon 84-30-4411Kigdmzfihv Visit Summary Ambulatory Visit Summary VALDEMAR CUELLAR [...] EDT With: Zuhair GLEASON, Nehemiah Gamez Where: [address] [address]- You Need to Schedule the Following Appointments Follow Up with MARIAN GLEASON, MIROSLAVA Reed When: Where: [facility] [address] [place] [address]- Medications What How Much When Why Instructions [...] on the severity (more content not included)...[facility] HospitalUrology Office/Clinic Noteon 41-50-6381Dfrqtgt Office/Clinic NoteUrology Office/Clinic Note Chief Complaint 4 [...] unspecified site) S/p urethral meatal dilation with Eminence sounds to 28Fr, cysto, TURP, TURBT 1 [...] [facility] [address] [place] [address]- Additional Instructions: 6 mos with PSA F&T [...] - Transurethral resec (more content not included)...Normal [facility] CenterComment on above:Result Comment: Electronically Signed By: Ti MAC MD\.br\Date and Time Signed: 02/26/25 16:47 EDT\.br\Electronically Co-Signed By: Tamela Lane\.br\Date and Time Co- Signed: 02/26/25 16:47 EDTCBC w/ Auto Diffon 18-74-8518Zhgamwszv/100 WBC (Bld) 1.0 %Normal0.0-2.0[facility] CenterComment on above:Performed By: #### [id number] #### [facility] [address] [place] [place], [place] [address]Sgvcrbtbg/Leukocytes Auto (Bld) [Pure # fraction]0.1 E9/LNormal 0.0-0.2FHarrison Community HospitalComment on above:Performed By: #### [id number] #### [facility] [address] [place] [place], [place] [address]Lfnwizzbffw (Bld) [#/Vol]0.3 E9/LNormal0.0-0.5FHarrison Community HospitalComment on above:Performed By: #### [id number] #### [facility] [address] [place] [place], [place] [address]Spzdnojbaik/100 WBC (Bld)3.6 %Normal0.0-8.0[facility] CenterComment on above:Performed By: #### [id number] #### [facility] [address] [place] [place], [place] [address]Vsyqszbvqhy distribution width (RBC) [Ratio]14.0 %Normal 10.9-14.2FHarrison Community HospitalComment on above:Performed By: #### [id number] #### [facility] [address] [place] [address]Busjrhbijm (Bld) [Volume fraction]43.0 %Xsfmra67.7-49.0[facility] CenterComment on above:Performed By: #### [id number] #### [facility] [address] [place] [address]Kywupdukaj (Bld) [Mass/Vol]14.4 g/uYKqqtlx44.5-17.5FHarrison Community HospitalComment on above:Performed By: #### [id number] #### [facility] [address] [place] [address]Pssxbmveasa (Bld) [#/Vol]2.3 E9/LNormal1.0-4.0[facility] CenterComment on above:Performed By: #### [id number] #### [facility] [address] [place] [address]Exbssroytsu/100 WBC (Bld)27.7 %Pepsny03.0-50.0[facility] CenterComment on above:Performed By: #### [id number] #### [facility] [address] [place] [address]UOO (RBC) [Entitic mass]31.3 exZmakvx22.0-34.0[facility] CenterComment on above:Performed By: #### [id number] #### [facility] [address] [place] [address]XQVF (RBC) [Mass/Vol]33.6 g/mGHncrfb22.4-36.0[facility] CenterComment on above:Performed By: #### [id number] #### [facility] [address] [place] [address]JDS (RBC) [Entitic vol]93.2 jDKbuyhp51.0-100.0[facility] CenterComment on above:Performed By: #### [id number] #### [facility] [address] [place] [address]Alcutxxpm (Bld) [#/Vol]0.6 E9/LNormal0.2-1.0[facility] CenterComment on above:Performed By: #### [id number] #### [facility] [address] [place] [address]Zzchrtmbwux (Bld) [#/Vol]5.1 E9/LNormal2.0-7.5FHarrison Community HospitalComment on above:Performed By: #### [id number] #### [facility] [address] [place] [address]Ebrhnxkybjk/100 WBC (Bld)60.8 %Sxjavn25.0-75.0[facility] CenterComment on above:Performed By: #### [id number] #### [facility] [address] [place] [address]Mimzdxcc mean volume (Bld) [Entitic vol]10.4 fLNormal6.4-10.8 [facility] CenterComment on above:Performed By: #### [id number] #### [facility] [address] [place] [address]Vopwqsmoq (Bld) [#/Vol]225.0 E9/PBsrlxl721.0-500.0[facility] CenterComment on above:Performed By: #### [id number] #### [facility] [address] [place] [address]GFA (Bld) [#/Vol]4.6 E12/LNormal4.3-5.9[facility] CenterComment on above:Performed By: #### [id number] #### [facility] [address] [place] [address]LWI corrected for nucl RBC Auto (Bld) [#/Vol]8.4 E9/LNormal 4.0-11.0[facility] CenterComment on above:Performed By: #### [id number] #### [facility] [address] [place], [place] [address]TQNtg 79-39-8182Jzuysxm [Mass/Vol]4.5 g/dLNormal3.3-5.0[facility] CenterComment on above:Performed By: #### [id number] #### [facility] [address] [place] [place], [place] [address]Mdnvebw/Globulin (S) [Mass conc ratio]2.0Chasmu3.1-2.2FHarrison Community HospitalComment on above:Performed By: #### [id number] #### [facility] [address] [place] [place], [place] [address]TVW [Catalytic activity/Vol]62 Int._Unit/AHodxis33-22NnepvePremier Health Upper Valley Medical CenterComment on above:Performed By: #### [id number] #### [facility] [address] [place], [place] [address]HIC No additional P-5'-P [Catalytic activity/Vol]18 Int._Unit/L Normal6-46[facility] CenterComment on above:Performed By: #### [id number] #### [facility] [address] [place] [place], [place] [address]Tddof gap [Moles/Vol]12 mmol/LNormal6-16[facility] CenterComment on above:Performed By: #### [id number] #### [facility] [address] [place], [place] [address]XMY [Catalytic activity/Vol]23 Int._Unit/LNormal5-43[facility] CenterComment on above:Performed By: #### [id number] #### [facility] [address] [place], [place] [address]Sbhhejkxn [Mass/Vol]0.4 mg/dLNormal0.0-1.1FHarrison Community HospitalComment on above:Performed By: #### [id number] #### [facility] [address] [place], [place] [address]Jhcvktd [Mass/Vol]8.9 mg/dLNormal8.9-11.1FHarrison Community HospitalComment on above:Performed By: #### [id number] #### [facility] [address] [place], [place] [address]Zmdmhcbg [Moles/Vol]105 mmol/PArobkk203-832PryqddPremier Health Upper Valley Medical CenterComment on above:Performed By: #### [id number] #### [facility] [address] [place], [place] [address]IO1 [Moles/Vol]26 mmol/XTeduzb75-86XtrtyhPremier Health Upper Valley Medical Center Comment on above:Performed By: #### [id number] #### [facility] [address] [place], [place] [address]Udifhcywqe [Mass/Vol]0.9 mg/dLNormal0.5-1.3FHarrison Community HospitalComment on above:Performed By: #### [id number] #### [facility] [address] [place], [place] [address]Cqhejbil (S) [Mass/Vol]2.3 g/dLNormal1.4-4.0[facility] CenterComment on above:Performed By: #### [id number] #### [facility] [address] [place] [address]Homuclx [Mass/Vol]99 mg/jEUtotgx48-267YsgmycPremier Health Upper Valley Medical CenterComment on above:Performed By: #### [id number] #### [facility] [address] [place], [place] [address]Mzwucajvs [Moles/Vol]4.1 mmol/LNormal3.5-5.3FHarrison Community HospitalComment on above:Performed By: #### [id number] #### [facility] [address] [place], [place] [address]Mtxookn [Mass/Vol]6.8 g/dLNormal6.0-7.8[facility] CenterComment on above:Performed By: #### [id number] #### [facility] [address] [place], [place] [address]Yolawp [Moles/Vol]139 mmol/PSlcraa461-633AxwkdiPremier Health Upper Valley Medical CenterComment on above:Performed By: #### [id number] #### [facility] [address] [place], [place] [address]Invk nitrogen [Mass/Vol]15 mg/dLNormal5-21[facility] CenterComment on above:Performed By: #### [id number] #### [facility] [address] [place], [place] [address]Puwv nitrogen/Creatinine [Mass ratio]17 No EgeghVxzahm84-56 [facility] CenterComment on above:Performed By: #### [id number] #### [facility] [address], [place] [address]Yvukd Panelon 68-26-7857Ahegztbkulk [Mass/Vol]213 mg/dLHigh 120-200[facility] CenterComment on above:Performed By: #### [id number] #### [facility] [address], [place] [address]Bmgadytpgpg in HDL [Mass/Vol]51 mg/dLInvalid Interpretation CodePremier Health Upper Valley Medical CenterComment on above:Result Comment: '>= 60 LOW RISK' '<= 40 HIGH RISK'Performed By: #### [id number] #### [facility] [address] [place], [place] [address]Corectulpfk in LDL [Mass/Vol]131 mg/dLHigh<=129[facility] CenterComment on above:Performed By: #### [id number] #### [facility] [address] [place], [place] [address]Rkfzwnqybst in VLDL [Mass/Vol]41 mg/dLHigh7-40[facility] CenterComment on above:Performed By: #### [id number] #### [facility] [address] [place], [place] [address]Bkfojakndkzh [Mass/Vol]203 mg/dLHigh<=149[facility] CenterComment on above:Performed By: #### [id number] #### [facility] [address] [place], [place] [address]xKXXtc 59-31-6714jEGG81 mL/min/1.73 j0Lfgfju>=59Prem[facility] CenterComment on above:Performed By: #### [id number] #### [facility] [address] [place], [place] [address]Lovlaonfym Visit Summaryon 60-26-4141Exdnkzdyal Visit Summary Ambulatory Visit Summary VALDEMAR CUELLAR [...] Where: [facility] [address] [place] [address] [place] [address]- You Need to Complete the Following CT Chest, Low Dose Screening, 01/15/25, Routine, Order for future visit, Transport Mode: Ambulatory, Reason: Screening, Yes, Yes, Yes, 1, 40, Yes, 0, [id number], No, Elevated cholesterol Physical exam Smoker BMI [...] you for choosing us for your care. [facility] Medicine Office/Clinic Noteon 91-72-1142Zvcbdn Medicine Office/Clinic NoteRevere [facility] Hospital Medicine Office/Clinic Note Chief Complaint Annual Physical [...] Metabolic Panel CT Chest, Low Dose Screening [facility] Internal Ambulatory Referral Lipid Panel 2. Smoker (F17.200: Nicotine dependence, unspecified, uncomplicated) Patient is not interested in quitting smoking. Will do low-dose CT. Ordered: CBC w/ Auto Diff Comprehensive Metabolic Panel CT Chest, Low Dose Screening [facility] Internal Ambulatory Referral Lipid Panel 3. Elevated PSA (R97.20: Elevated prostate specific antigen [PSA]) Follows with urology. Has no complaints at this time. Ordered: CBC w/ Auto Diff Comprehensive Metabolic Panel CT Chest, Low Dose Screening [facility] Internal Ambulatory Referral Lipid Panel 4. HTN (hypertension) (I10: Essential (primary) hypertension) Blood pressure is at goal. No concerns with medication. Does not need refill at this time. Ordered: CBC w/ Auto Diff Comprehensive Metabolic Panel CT Chest, Low Dose Screening [facility] Internal Ambulatory Referral Lipid Panel 5. Elevated [...] Recorded 2023-03-15: TPV (more content not included)...[facility] HospitalComment on above:Result Comment: Electronically Signed By: Zuhair GLEASON, Nehemiah Gamez\.br\Date and Time Signed: 01/15/25 18:00 EDTProvider Letteron 07-04-2954Eukgtjau LetterProvider Letter November 22, 2024 VALDEMAR CUELLAR [address] [place] [address] : 1960 To Whom It May Concern, Please excuse above patient from work. Date of Illness: From: 10/26/2024 To: 11/26/2024 May Return to Work On: 11/27/24 Restrictions: Patient may return to work on 11/27/24 without restrictions. Comments: N/A Sincerely, Dr. Ti Mac, F.A.C.S. [facility] [address] [place] [address] Fax [facility] HospitalC Urineon 11-15-2024 Bacteria identified Cx Nom (U)Microbiology PROCEDURE: Urine Culture [R1] SOURCE: U Random BODY SITE: COLLECTED DATE/TIME: 11/13/2024 11:05 EST RECEIVED DATE/TIME: 11/13/2024 16:56 EST START DATE/TIME: 11/13/2024 17:03 EST FREE TEXT SOURCE: DEANGELO ANN PA-C, PA-C, DEANGELO Manzano FINAL REPORTS Final Report [] Verified Date/Time: 11/15/2024 09:29 EST No growth at 2 days. Performing Locations R1: This test was performed at: [facility], [address] [place] [address], [address] [place] [address], YabdsdXhdbglCincinnati Shriners HospitalComment on above:Performed By: #### [id number] #### [facility] [address] [place] [address]Codpwsutcp Visit Summaryon 23-84-7837Jbwgimqddn Visit Summary Ambulatory Visit Summary VALDEMAR CUELLAR [...] EDT With: Zuhair GLEASON, Nehemiah Gamez Where: [facility] [address] [address]- Wednesday 2:45 PM EDT With: Ti MAC MD Where: [facility] [address] [place] [address]- You Need to Schedule the Following Appointments Follow Up with Ti MAC MD, URL When: Where: [address] [place] [address]- Medications What How Much When Instructions Unchanged [...] the size of you (more content not included)...NormalFormerly [facility] CenterUrology Office/Clinic Noteon 33-22-0503Avthclz Office/Clinic NoteUrology Office/Clinic Note Chief Complaint F/u [...] Contact Information MARIAN GLEASON, Ti Valle, URL [address] [place] [address]- Additional Instructions: 3 months w/ PVR Patient [...] Physical exam Prostat (more content not included)...[facility] HospitalComment on above:Result Comment: Electronically Signed By: MARIAN GLEASON, Ti Valle\.br\Date and Time Signed: 11/03/24 10:10 EST\.br\Electronically Co-Signed By: Hiwot Fernandez.br\Date and Time Co-Signed: 11/03/2509:06 ESTSURGICAL PATHOLOGY REFERENCE LAB CONSULTon 11-02-1108ZRDE REPORTNoKettering Health Miamisburg Comment on above:Order Comment: Specimen Type: FORMALIN-FIXED PARAFFIN-EMBEDDED TISSUE SPECIMEN Ordering Facility: [facility] Address: [address] [place], [place] [address] [place], [place] [address]Vewqas Comment: Surgical Pathology Report Case: [id number] Authorizing Provider: Amado Duffy, Collected: 11/02/2024 10:27 PM Ordering Location: [facility] Received: 11/02/2024 10:26 PM [facility] Pathologist: Samina Nelson MD Specimen: Slide(s), 6 SLIDES ([id number])Performed By: #### [id number] #### [facility] CLIA [id number] [address] [place] [address] [place] STATES OF AMERICACLINICAL HISTORYCONSULT REQUESTEDNoKettering Health MiamisburgComment on above:Order Comment: Specimen Type: FORMALIN-FIXED PARAFFIN-EMBEDDED TISSUE SPECIMEN Ordering Facility: [facility] Address: [address] [place], [place] [address], [place] [address]Vstqlakep By: #### [id number] #### [facility] CLIA [id number] [address] [place] [address] [place] OF AMERICADIAGNOSIS COMMENTNormal [facility] TroyComment on above:Order Comment: Specimen Type: FORMALIN-FIXED PARAFFIN-EMBEDDED TISSUE SPECIMEN Ordering Facility: [facility] Address: [address] [place], [place] [address]Gncguo Comment: This case was shown at the consensus conference on 11/03/[address] Nancy Spencer and Richard Eddy in attendance, who both concur with the diagnosis.Performed By: #### [id number] #### [facility] CLIA [id number] [address] [place], [place] [id number] [facility] HOSPITALFINAL DIAGNOSISNormal [facility] on above:Order Comment: Specimen Type: FORMALIN-FIXED PARAFFIN-EMBEDDED TISSUE SPECIMEN Ordering Facility: [facility] Address: [address] [place], [place] [address] [place], [place] [address]Zzfkfj Comment: [id number]; 10/26/2024 B. 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 at 1441 ESTPerformed By: #### [id number] #### [facility] CLIA [id number] [address] [place], [place] [address] [facility]FF[facility]OR[facility] HOSPITALFINME PERFORMING LABNormal [facility] on above:Order Comment: Specimen Type: FORMALIN-FIXED PARAFFIN-EMBEDDED TISSUE SPECIMEN Ordering Facility: [facility] Address: [facility] [place], [place] [address]Rbrymv Comment: Diagnostic interpretation performed at: [facility], [address] [place] [address] CLIA# [id number] Return Agent Airport: ABBI Samserformed By: #### [id number] #### [facility] CLIA [id number] [address] [place] [address] STATES OF [facility] MEDICAL CENTERAmbulatory Visit Summaryon 82-38-6047Sfvifklhmh Visit SummaryAmbulatory Visit Summary POLO VALDEMAR Cochran [...] GLEASON, Ti Valle Where: [facility] [address] [address]- Wednesday 5:45 PM EDT With: Nehemiah Moffett MD Where: [facility] [address] [address]- Medications What How Much When Instructions Unchanged [...] for choosing us for your care. [facility]riners HospitalLon 10-26-2024 Specimen: [id number] Received: 10/27/24 Status: COLLEEN Sun Num: [id number] Spec Type: Surgical Subm Dr: Ti Mac MD Tissues: A Prostate - Tur (PROSTATE TURP) B Urinary Bladder - biopsy (BLADDER BX) Procedures: , Gross/Micro L4/2 Age/ Patient Sex Location Account Attending Physician Valdemar Cuellar/M LABELL [id number] Ti Mac MD SPEC NUM: [id number] RECD: 10/27/24 STATUS: COLLEEN SUN NUM: [id number] ZANDER: 10/26/24 [facility] DR: Ti Mac MD ENTERED: 10/27/24-[address]: SPEC TYPE: Surgical DEPT: GARY LEON ORDERED: /, Gross/Micro L4/2 ORDERED: , Gross/Micro L4/2 Supplemental Report Addendum 1 Entered: 11/06/24 This case was sent to [facility] for consultation. Their diagnosis is as follows: B. 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 Please see attached consultation report from [facility] for diagnostic details. Addendum Signed (signature on file) Amado Colbert MD 11/06/241808 Pathological Diagnosis A. Prostate, transurethral resection: Prostate glandular and stromal hyperplasia. B. 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 - Pending external consultation. Specimen: [id number] Received: 10/27/24-1208 Status: COLLEEN Sun Num: [id number] Spec Type: Surgical Subm Dr: Ti Mac MD Tissues: A Prostate - Tur (PROSTATE TURP) B Urinary Bladder - biopsy (BLADDER BX) Procedures: SILVESTRE/Camilla, Gross/Micro L4/2 Patient: Valdemar Cuellar [id number] (Continued) Specimen: [id number] Received: 10/27/24 (Continued) Signed (signature on file) Amado Colbert MD 10/31/24 1349 Specimen: [id number] Received: 10/27/24 Status: COLLEEN Sun Num: [id number] Spec Type: Surgical Subm Dr: Ti Mac MD Tissues: A Prostate - Tur (PROSTATE TURP) B Urinary Bladder - biopsy (BLADDER BX) Procedures: Renetta Sampson/Dorys L4/2 Patient: Valdemar Cuellar [id number] (Continued) Specimen: [id number] Received: 10/27/24 (Continued) Clinical [...] entirely submitted in B1. TW CPT Codes 64873l6 Specimen: [id number] Received: 10/27/24 Status: COLLEEN Sun Num: [id number] Spec Type: Surgical Subm Dr: Ti Mac MD Tissues: A Prostate - Tur (PROSTATE TURP) B Urinary Bladder - biopsy (BLADDER BX) Procedures: /, Gross/Micro L4/2 Patient: Valdemar Cuellar [id number] (Continued) Signed (signature on file) Amado Colbert MD 10/31/[address] [place] [address] Physician GroupAmbulatory Visit Summaryon 07-66-3604Qndaxkzuul Visit SummaryAmbulatory Visit Summary VALDEMAR CUELLAR :1960 [...] PM EDT With: Nehemiah Moffett MD Where: [address] [address]- Medications What How Much When Instructions Unchanged [...] you for choosing us for your care. [facility] Medicine Office/Clinic Noteon 18-26-3726Vwehye Medicine Office/Clinic NoteRevere Memorial Hospital Medicine Office/Clinic Note HPI Staff Valdemar is [...] DAY, # 90 tab(s), Refills(s) 2, Pharmacy: [facility]/pharmacy #[id number], 177, cm, 07/17/24 17:45:00 EDT, [...] Refuses SARS-CoV-2 (COVID-19) Ad26 vaccine 2020 RecordedCincinnati Shriners HospitalComment on above:Result Comment: Electronically Signed By: Nehemiah Moffett MD\.br\Date and Time Signed: 07/17/24 17:59 EDTAmbulatory Visit Summaryon 20-77-1730Awpwbemwsj Visit SummaryAmbulatory Visit Summary VALDEMAR CUELLAR :1960 Visit Date:07/03/2024 Ambulatory Visit Instructions Your Diagnosis Prostatitis BPH with urinary obstruction Elevated PSA Family history of prostate cancer in father Your Care Team Attending Physician - Ti MAC MD Primary Care Physician - Nehmeiah Moffett MD This Is Your Medications List [...] PM EDT With: Nehemiah Moffett MD Where: [facility] [address] [address]- You Need to Schedule the Following Appointments Follow Up with Ti MAC MD, URL When: Where: [facility] [address] [place] [phone] Medications What How Much When Instructions New doxycycline (doxycycline hyclate 100 mg Cap) 1 Capsules By Mouth 2 times a day Duration: 4 Weeks Pickup at [facility]/pharmacy #5968 Changed tamsulosin (tamsulosin 0.4 mg Cap) 1 Capsules By Mouth 2 times a day Duration: 30 Days Pickup at [facility]/pharmacy #6177 Unchanged dutasteride (dutasteride 0.5 mg Cap) 1 Capsules By Mouth Every day Unchanged amlodipine (amLODIPine 5 mg Tab) See instructions TAKE 1 TABLET BY MOUTH EVERY DAY Contact prescribing physician if questions or concerns Pharmacy Information [facility]/pharmacy #[id number]: [address] [place], [place] [phone] Allergies No Known Allergies Problems Ongoing - [...] often. ? Troubl (more content not included)...[facility] HospitalUrology Office/Clinic Noteon 62-53-7275Jjrulbb Office/Clinic NoteUrology Office/Clinic Note Chief Complaint 6 [...] some pain/burning with urination. Was on amoxicillin j44sxpv for skin abscess, finished this last Wednesday. [...] discussed. Take probiotic daily. Rx sent to [facility]. 2. BPH with urinary obstruction (N40.1: Benign [...] operative intervention. -Cont Flomax. Refills sent to [facility]. Cont Dutasteride. Call for refills. -Will schedule [...] Valle, URL [facility] [address] [place] [phone] Additional Instructions: sched cysto Patient Education Prostatitis [...] Nocturia Panic at (more content not included)...[facility]riners HospitalComment on above:Result Comment: Electronically Signed By: Ti MAC MD\.br\Date and Time Signed: 07/03/24 16:18 EDT\.br\Electronically Co-Signed By: Stefanie Amador\.br\Date and Time Co-Signed: 07/03/24 16:16 EDTCBC (INCLUDES DIFF/PLT)on 74-01-6603Cnvpuhham (Bld) [#/Vol]0.042 10*3/uLNormal0-200[facility] Comment on above:Performed By: #### 90497, 3372, 7680 #### [facility] of [address], [address] [place] [address] Regulatory Manager: Aron Almendarez MDBasophils/100 WBC (Bld)0.8 %NormalQuest DiagnosticsComment on above:Performed By: #### 36537, 6399, 7600 #### [facility] of [address], [address] [place] [address] Regulatory Manager: Aron Almendarez MDEosinophils (Bld) [#/Vol]0.198 10*3/uLNormal 15-500Quest DiagnosticsComment on above:Performed By: #### 02656, 6399, 7600 #### [facility] of [address], [address] [place] [address] Regulatory Manager: Aron Almendarez MDEosinophils/100 WBC (Bld)3.8 %NormalQuest DiagnosticsComment on above:Performed By: #### 81919, 63, 7600 #### [facility] of [address], [address] [place] [address] Regulatory Manager: Aron Almendarez MDErythrocyte distribution width (RBC) [Ratio] 12.6 %Qwxloj46.0-15.0[facility] DiagnosticsComment on above:Performed By: #### 45881, 63, 7600 #### [facility] of [place] [address] Regulatory Manager: Aron Almendarez MDHematocrit (Bld) [Volume fraction]46.4 %Normal 38.5-50.0[facility]osticsComment on above:Performed By: #### 40307, 6399, 7600 #### [facility] of [place] [address] Regulatory Manager: Aron Almendarez MDHemoglobin (Bld) [Mass/Vol]16.0 g/dLNormal 13.2-17.1[facility] DiagnosticsComment on above:Performed By: #### 20959, 6399, 7600 #### [facility] of [address], [address] [place] [address] Regulatory Manager: Aron Almendarez MDLymphocytes (Bld) [#/Vol]1.492 10*3/uLNormal 850-3900Quest DiagnosticsComment on above:Performed By: #### 21248, 6399, 7600 #### [facility] of [address], [address] [place] [address] Regulatory Manager: Aron Almendarez MDLymphocytes/100 WBC (Bld)28.7 %NormalQuest DiagnosticsComment on above:Performed By: #### 33365, 6399, 7600 #### [facility] of [address], [address] [place] [address] Regulatory Manager: Arno Almendarez MDMCH (RBC) [Entitic mass]32.8 oqAiojcw01.0-33.0 [facility]osticsComment on above:Performed By: #### 96522, 6399, 7600 #### [facility] of [address], [address] [place] [address] Regulatory Manager: Aron ESQUIVELCHC (RBC) [Mass/Vol]34.5 g/eZIjhbnf99.0-36.0 [facility]osticsComment on above:Performed By: #### 14635, 6399, 7600 #### [facility] of [address], [address] [place] [address] Regulatory Manager: Aron ESQUIVELCV (RBC) [Entitic vol]95.1 mLIxislg03.0-100.0 [facility]osticsComment on above:Performed By: #### 82481, 6399, 7600 #### [facility] of [address], [address] [place] [address] Regulatory Manager: Aron Almendarez MDMonocytes (Bld) [#/Vol]0.452 10*3/uLNormal 200-950Quest DiagnosticsComment on above:Performed By: #### 56234, 6399, 7600 #### [facility] of [address], [address] [place] [address] Regulatory Manager: Aron Almendarez MDMonocytes/100 WBC (Bld)8.7 %NormalQuest DiagnosticsComment on above:Performed By: #### 09240, 6399, 7600 #### [facility] of [address], [address] [place] [address] Regulatory Manager: Aron Almendarez MDNeutrophils (Bld) [#/Vol]3.016 10*3/uLNormal 1500-7800Quest DiagnosticsComment on above:Performed By: #### 18824, 6399, 7600 #### [facility] of [address], [address] [place] [address] Regulatory Manager: Aron Almendarez MDNeutrophils/100 WBC (Bld)58 %NormalQuest DiagnosticsComment on above:Performed By: #### 64234, 6399, 7600 #### [facility] of [address], [address] [place] [address] Regulatory Manager: Aron Almendarez MDPlatelet mean volume (Bld) [Entitic vol]12.1 fLNormal7.5-12.5Quest DiagnosticsComment on above:Performed By: #### 11768, 6399, 7600 #### [facility] of [address], [address] [place] [address] Regulatory Manager: Aron Almendarez MDPlatelets (Bld) [#/Vol]184 10*3/uLNormal 140-400Quest DiagnosticsComment on above:Performed By: #### 14612, 6399, 7600 #### [facility] of [address], [address] [place] [address] Regulatory Manager: Aron Almendarez MDRBC (Bld) [#/Vol]4.88 10*6/uLNormal4.20-5.80 [facility]osticsComment on above:Performed By: #### 71137, 6399, 7600 #### [facility] of [address], [address] [place] [address] Regulatory Manager: Aron Almendarez MDWBC (d) [#/Vol]5.2 10*3/uLNormal3.8-10.8 [facility]osticsComment on above:Performed By: #### 54483, 6399, 7600 #### [facility] of [address], [address] [place] [address] Regulatory Manager: Aron Almendarez MDCOMPREHENSIVE METABOLIC PANELon 12-19-2023 Albumin [Mass/Vol]4.2 g/dLNormal3.6-5.1[facility] DiagnosticsComment on above: Performed By: #### 52449, 6399, 7600 #### [facility] of [address], [address] [place] [address] Regulatory Manager: Aron Almendarez MDAlbumin/Globulin [Mass ratio]1.9 {ratio}Normal 1.0-2.5Quest DiagnosticsComment on above:Performed By: #### 55536, 6399, 7600 #### [facility] of [address], [address] [place] [address] Regulatory Manager: Aron Almendarez MDALP [Catalytic activity/Vol]70 U/CWizvgs08-362 [facility]osticsComment on above:Performed By: #### 47065, 6399, 7600 #### [facility] of [address], [address] [place] [address] Regulatory Manager: Aron Almendarez MDALT [Catalytic activity/Vol]20 U/LNormal9-46 [facility]osticsComment on above:Performed By: #### 70140, 6399, 7600 #### [facility] of [address], [address] [place] [address] Regulatory Manager: Aron Almendarez MDAST [Catalytic activity/Vol]19 U/AIurnos76-77 [facility]osticsComment on above:Performed By: #### 92115, 6399, 7600 #### [facility] of [address], [address] [place] [address] Regulatory Manager: Aron Almendarez MDBilirubin [Mass/Vol]0.4 mg/dLNormal0.2-1.2 [facility]osticsComment on above:Performed By: #### 92230, 6399, 7600 #### [facility] of [address], [address] [place] [address] Regulatory Manager: Aron Almendarez MDBUN/CREATININE RATIOSEE NOTE:Normal6-22Quest DiagnosticsComment on above:Result Comment: Not Reported: BUN and Creatinine are within reference range.Performed By: #### 63900, 6399, 7600 #### [facility] of [address], [address] [place] [address] Regulatory Manager: Aron Almendarez MDCalcium [Mass/Vol]9.0 mg/dLNormal8.6-10.3Quest DiagnosticsComment on above:Performed By: #### 16380, 6399, 7600 #### [facility] of [address], [address] [place] [address] Regulatory Manager: Aron Almendarez MDChloride [Moles/Vol]106 mmol/CIcbvid81-727 [facility]osticsComment on above:Performed By: #### 55129, 6399, 7600 #### [facility] of [place] [address] Regulatory Manager: Aron Almendarez MDCO2 [Moles/Vol]26 mmol/JHlhwdf69-47Jbmih DiagnosticsComment on above:Performed By: #### 58354, 6399, 7600 #### [facility] of [address], [address] [place] [address] Regulatory Manager: Aron PAREKHreatinine [Mass/Vol]0.97 mg/dLNormal0.70-1.35 [facility]osticsComment on above:Performed By: #### 26837, 6399, 7600 #### [facility] of [address], [address] [place] [address] Regulatory Manager: Aron Almendarez MDGFR/1.73 sq M.predicted among non-blacks MDRD (S/P/Bld) [Vol rate/Area]88 mL/min/{1.73_m2}Normal> OR = 60[facility] Comment on above:Performed By: #### 58491, 63, 7600 #### [facility] [address], [address] [place] [address] Regulatory Manager: Aron Almendarez MDGlobulin (S) [Mass/Vol]2.2 g/dLNormal1.9-3.7 [facility]osticsComment on above:Performed By: #### 26038, 63, 7600 #### [facility] [place] [address] Regulatory Manager: Aron Almendarez MDGlucose [Mass/Vol]118 mg/uUHids02-26Lxgxu DiagnosticsComment on above:Result Comment: Fasting reference interval For someone without known diabetes, a glucose value between 100 and 125 mg/dL is consistent with prediabetes and should be confirmed with a follow-up test.Performed By: #### 21408, 47, 7600 #### [facility] [place] [address] Regulatory Manager: Aron Almendarez MDPotassium [Moles/Vol]4.2 mmol/LNormal3.5-5.3 [facility]osticsComment on above:Performed By: #### 92285, 62, 7600 #### [facility] [place] [address] Regulatory Manager: Aron Almendarez MDProtein [Mass/Vol]6.4 g/dLNormal6.1-8.1Quest DiagnosticsComment on above:Performed By: #### 37871, 63, 7600 #### [facility] [place] [address] Regulatory Manager: Aron Almendarez MDSodium [Moles/Vol]140 mmol/MEqvodv961-177Nuklr DiagnosticsComment on above:Performed By: #### 99285, 6399, 7600 #### [facility] [address], [address] [place] [address] Regulatory Manager: Aron Almendarez MDUrea nitrogen [Mass/Vol]11 mg/dLNormal7-25 [facility]osticsComment on above:Performed By: #### 45948, 6399, 7600 #### [facility] [address], [address] [place] [address] Regulatory Manager: Aron Almendarez MDLIPID PANEL, STANDARD 26-83-8756Rwdysqilidm [Mass/Vol]189 mg/dLNormal<200[facility] DiagnosticsComment on above:Order Comment: FASTING: UNKNOWNPerformed By: #### 36008, 6399, 7600 #### [facility] [address], [address] [place] [address] Regulatory Manager: Aron Almendarez MDCholesterol in HDL [Mass/Vol]49 mg/dLNormal> OR = 40Quest DiagnosticsComment on above:Order Comment: FASTING: UNKNOWN Performed By: #### 44313, 6399, 7600 #### [facility] [address], [address] [place] [address] Regulatory Manager: Aron Almendarez MDCholesterol in LDL [Mass/Vol]119 [...] LDL-C. Jon SS et al. PRUDENCIO. 2013;310(19): 3975-8111 (http://education.Bleacher Report.CleanBeeBaby/faq/HZB327)Performed By: #### 73109, 6399, 7600 #### [facility] [address], [address] [place] [address] Regulatory Manager: Aron PAREKHholesterol.total/Cholesterol in HDL [Mass ratio]3.9 {ratio}Normal<5.0Quest DiagnosticsComment on above:Order Comment: FASTING: UNKNOWNPerformed By: #### 72270, 6399, 7600 #### [facility] [address], [address] [place] [address] Regulatory Manager: Aron ROMEO HDL RBAJYUAUTIS358 mg/dL (calc)High<130 [facility] DiagnosticsComment on above:Order Comment: FASTING: UNKNOWNResult Comment: For patients with diabetes plus 1 major ASCVD risk factor, treating to a non-HDL-C goal of <100 mg/dL (LDL-C of <70 mg/dL) is considered a therapeutic option.Performed By: #### 32575, 91, 7600 #### [facility] [address], [address] [place] [address] Regulatory Manager: Aron Almendarez MDTriglyceride [Mass/Vol]100 mg/dLNormal<150 [facility]osticsComment on above:Order Comment: FASTING: UNKNOWNPerformed By: #### 62211, 91, 7600 #### [facility] [address], [address] [place] [address] Regulatory Manager: Aron Almendarez MDPSA, TOTALon 44-88-2304UXG, TOTAL1.82 ng/mL Normal< OR = 4.00Quest DiagnosticsComment on above:Result Comment: The total PSA value from this assay system is standardized against the WHO standard. The test result will be approximately 20% lower when compared to the equimolar-standardized total PSA ([place]). Comparison of serial PSA results should be [...] copy faxed has been acknowledged. Queued to: [id number] Queued to: [id number] By: #### 86674, 9837, 3740 #### [facility] [address], [address] [place] [address] Regulatory Manager: Aron Almendarez MD Vital Signs Date TimeVital SignValuePerforming XwpmkylnyHgezmihf92-97-5565 09:14-0500Blood Pressure LocationPaMINDBODY [facility]02-14-2025 09:14-0500Body fsnsxggtyim42.6 [degF]Ti MAC [facility]02-14-2025 09:14-0500Diastolic blood wthexery39 mm[Hg]Ti MAC [facility]02-14-2025 09:14-0500Heart rate70 /minPaMINDBODY [facility]02-14-2025 09:14-0500Respiratory rate16 /minPaMINDBODY [facility]02-14-2025 09:14-0500Systolic blood mm[Hg]Ti MAC [facility]10-14-2024 15:29-0400Diastolic blood ofvywwsk30 mm[Hg]Ti MAC [facility]10-14-2024 15:29-0400Heart rate68 /minNovaShunt [facility]10-14-2024 15:29-0400Systolic blood kdhzllow214 mm[Hg]Ti MAC [facility]09-11-2023 15:53-0400Blood Pressure LocationPakathrine MAC [facility]09-11-2023 15:53-0400Body esmlwnoyeyu26.42 [degF]Ti MAC [facility]09-11-2023 15:53-0400Diastolic blood dfejznjw54 mm[Hg]Ti MARIAN [facility]09-11-2023 15:53-0400Heart rate88 /minTi MAC [facility]09-11-2023 15:53-0400Systolic blood mivtbmpp897 mm[Hg]Ti MARIAN [facility]06-26-2023 15:23-0400Blood Pressure LocationTi MAC [facility]06-26-2023 15:23-0400Diastolic blood mm[Hg]Ti MAC [facility]06-26-2023 15:23-0400Heart rate70 /minPakathrine MAC [facility]06-26-2023 15:23-0400Respiratory rate16 /minPakathrine MAC [facility]06-26-2023 15:23-0400Systolic blood mm[Hg]Timallorie MAC [facility] Encounters Encounter DateEncounter TypeCare ProviderFacilityStart: 68-54-6474tjrpzpglnz Willis Valle NILDionyFacility:[facility] Limatart: 95-97-9137pzhlggqrliWymocu L. Bobbs Facility:FT ueStart: 07-10-2025 End: 00-36-8421jszlwinoooTtdydj L. BobbsFacility:FT BellevueStart: 02-26-2025 End: 49-00-1158bevycvkcfqNacaxme R WATERSFacility:FTMCStart: 02-26-2025 End: 77-60-6264Sfm Drop offPatrick R MARIAN [facility] Start: 02-26-2025 End: 73-10-0870ttukaoqnpmRnnnpos Leonard MARIANFacility:EU tart: 02-26-2025 End: 67-49-5135Pdmyjso encounter procedurePatrick R MAC [facility] [place] start: 17-50-2163xdeumuqvufMxxgdoi WATERSFacility: BellevueStart: 01-15-2025 End: 32-23-5407Dgb Drop Gray Moffett [facility] Start: 01-15-2025 End: 55-35-8083bspvbdqefhTI Nehemiah MoffettFacility:[facility] ueStart: 11-13-2024 End: 61-49-3401ktiavcjhjfBIMNTEMU E PERRYFacility:FTMCStart: 11-13-2024 End: 10-08-0228Tmb Drop offJENNIFER E MARISSA [facility] Start: 11-13-2024 End: 39-27-2202pfdefishahEKJTGBUA E PERRYFacility:EU ueStart: 11-13-2024 End: 45-71-2051Watmjgj encounter procedureJENNIFER E MARISSA [facility] start: 11-03-2024 End: 16-08-1764thtyviysqnRpxiyml R WATERSFacility:EU tart: 11-03-2024 End: 36-58-4009Rafrtnu encounter procedureTi MAC [facility] start: 10-30-2024 End: 79-99-3712tqprkluyxpEcdeimg R WATERSFacility:EU WelcomeueStart: 10-30-2024 End: 95-77-1100Jwfodzm encounter procedureTi MAC [facility] start: 10-26-2024 End: 05-37-9840zuevdnteshTjjIke Jaramillo MD Work Phone: [facility] Work Phone: Start: 10-26-2024 End: 75-32-6730Ivxqqpsd Laz Jaramillo MD Work Phone: [facility]-LAB Path Spec [place] HospStart: 10-26-2024 End: 38-92-8418jaurkxtcvmUfolzek R WATERSFacility:CD:[id number]: 09-25-2024 End: 91-30-5733jlfawfcqvhXsvoyfp R WATERSFacility:CD:[id number]: 07-17-2024 End: 82-89-6390alaaiifneaCMKel MoffettFacility:FT FM tart: 07-03-2024 End: 60-59-0714mtuswhxptkLanudvb R WATERSFacility:EU tart: 07-03-2024 End: 54-33-4341Xgcuhsr encounter procedureTi MAC [facility] start: 12-24-2023 End: 00-73-2632Khbvljh encounter procedureTi Valle MAC [facility] start: 12-17-2023 End: 66-49-5035Mrdjpyd encounter procedureSwiley NatachaJennifer Moffett [facility] Start: 05-31-2023 End: 54-93-4669Txxgqcx encounter procedurePakathrine Valle MAC [facility] start: 03-15-2023 End: 78-40-1692Kkskxaa encounter procedureTi Valle MAC [facility] start: 11-29-2021 End: 44-36-3179jytmbtfhxxUP TI MACFacility:H1 Procedures DateProcedureProcedure DetailPerforming ClinicianStart: 90-82-6937Pucksihzdy Ti MAC Start: 69-15-3465Godpbofvivsop prostatectomyPakathrine MAC Start: 69-12-6607Nsiyayztltsjq resection of bladder neoplasmTi MAC Start: 92-87-5660KFZ screeningDR TI MACComment on above:Performed By: #### PSAD #### [facility] [address] [place] [address] Dr. Ray BarajasStart: 08-81-1514EfodicpatqAncjdtm WATERS ColonoscopyTi MAC Plan of Treatment DateCare ActivityDetailAuthorStart: 66-47-8479cemsyosfslUffzivdsuoGhlzhmiq:EU [place] Immunizations Immunization DateImmunizationNotesCare WwxalwvkAjnvnqic00-62-8928MHUK-TmA-9 (COVID-19) Ad26 vaccine, recombinantPatrick MAC [facility] on above:Result Comment: 2023-03-15: [id number]-HnI-4 (COVID-19) Ad26 vaccine, recombinantPatrick MAC [facility] on above:Result Comment: 2023-03-15: [id number]-LpL-3 (COVID-19) Ad26 vaccine, recombinantPatrick MAC [facility] HospitalNEGATED: Highlighted row has not occurred!25-22-0524potwrosls virus vaccine, unspecified formulationPatrick [employer] [facility] Payers DatePayer CategoryPayerPolicy [id number]-[id number] Health [id number] 2..1.549838.3.57[id number] 2..1.553299.3.57[id number] 2.0.1.542676.3.57[id number] 2..1.053868.3.57[id number] 2..1.935482.3.57[id number] 2.16.840.1.367809.3.57[id number] 2.16.840.1.202085.3.57[id number] 2.16.840.1.880840.3.57[id number] 2.16.840.1.523442.3.57[id number] 2.16.840.1.230011.3.57[id number] 2.16.840.1.512211.3.57[id number] 2.16.840.1.580501.3.57[id number] 2.16.840.1.645874.3.57[id number] 2.16.840.1.862935.3.57[id number] 2.16.840.1.935831.3.57[id number] 2.16.840.1.693813.3.57[id number] 2.16.840.1.723917.3.57[id number] 2.16.840.1.180433.3.57[id number] 2.16.840.1.731241.3.579.2.531 Social History DateTypeDetailFacilityStart: 05-20-0117Qnmxsel smoking statusHeavy tobacco smoker (finding)[facility] smoking statusNeverExec[facility] [place]vueSex [facility]: 05-31-2023 End: 79-94-2787Fntenwk smoking statusLight tobacco smoker (finding)[facility] smoking status NHIS Unknown if ever smokedKettering Health Work Phone: Start: 01-01-2010 End: 33-48-3696XwaTlfm (finding)[facility] Centertart: 77-83-4137Ksq Assigned At [facility] Functional Status YrtzAufmnvvdjcOxdguvAfewgsxu01-14-9616Mpdmgbjeiw StatusN/A[facility]10-14-2024Functional StatusN/A[facility]04-05-2024Functional StatusN/A [facility]09-11-2023Functional StatusN/A[facility]06-26-2023 Functional StatusN/A[facility] Clinical Notes 03-15-2023 to 02-26-2025 Note Date & PjfuZyazQxvommgc37-35-6598 Hospital Discharge instructions Patient Education 02/26/2025 16:41:47 [...] reconstructed. Follow these instructions at home: Take gsfy-sxv-vhmccia and prescription medicines only as told by [...] provider. Document Revised: 07/01/2023 Document Reviewed: 07/01/2023 OpenVPN Patient Education 2023 [employer]. Follow Up Care 11/03/2024 10:17:09 With:MARIAN GLEASON, Ti aVlle, URL Address: [facility] [address] , [place] [address]- When: Unknown [facility] 06-09-2025 NotePatient Education Urology Urethral Stricture Urethral [...] Follow these instructions at home: ??? Take qadd-npo-rektauo and prescription medicines only as told by [...] provider. Document Revised: 07/01/2023 Document Reviewed: 07/01/2023 OpenVPN Patient Education ? 2023 [employer].[facility] 11-03-2024 Hospital Discharge instructions Patient Education 11/03/2024 [...] urethra. Follow these instructions at home: Take hkih-atm-xvaikzc and prescription medicines only as told by [...] provider. Document Revised: 03/25/2022 Document Reviewed: 03/25/2022 OpenVPN Patient Education 2023 [employer]. Follow Up Care 10/05/2024 13:47:01 With:MARIAN GLEASON, Ti Valle, URL Address: [address] [place], [place] [id number]- When: Unknown [facility] 02-14-2025 NotePatient Education Urology Benign Prostatic Hyperplasia [...] Follow these instructions at home: ??? Take fdra-jax-lyyhtzv and prescription medicines only as told by [...] symptoms do not get (more content not included)...[facility]10-28-2024 NotePatient Education Nutrition BMI for Adults Body [...] for Disease Control and Prevention: cdc.gov ??? [place] Heart Association: heart.org ??? National Heart, Lung, and Blood [place]: nhlbi.nih.gov This information is not intended to replace advice given to you by your health care provider. Make sure you discuss any questions you have with your health care provider. Document Revised: 05/27/2023 Document Reviewed: 05/20/2023 OpenVPN Patient Education ? 2023 [employer].[facility] 07-03-2024 Hospital Discharge instructions Patient Education 07/03/2024 [...] Follow these instructions at home: Medicines Take htrt-puw-ffhjvpz and prescription medicines only as told by [...] important. Where to find more information National [place] of Diabetes and Digestive and Kidney Diseases: [...] depends on the type of prostatitis. Take yvlt-klm-grpebrj and prescription medicines only as told by [...] provider. Document Revised: 07/22/2023 Document Reviewed: 07/22/2023 OpenVPN Patient Education 2023 [employer]. 07/03/2024 16:13:27 Cystoscopy Cystoscopy Cystoscopy is a [...] including vitamins, herbs, eye drops, creams, and wvmi-ifu-xampyrg medicines. Any problems you or family members [...] provider tells you to take them. Taking zwkd-hxt-imzlkuv medicines, vitamins, herbs, and supplements. Tests You [...] Follow these instructions at home: Medicines Take ptyi-cfd-zkbaulo and prescription medicines only as told by [...] provider. Document Revised: 05/20/2022 Document Reviewed: 04/18/2021 OpenVPN Patient Education 2023 [employer]. 07/03/2024 16:13:24 Benign Prostatic Hyperplasia Benign Prostatic [...] urethra. Follow these instructions at home: Take yftu-ciy-ybiwcka and prescription medicines only as told by [...] provider. Document Revised: 03/25/2022 Document Reviewed: 03/25/2022 OpenVPN Patient Education 2023 [employer]. Follow Up Care 12/24/2023 13:10:49 With:MARIAN GLEASON, Ti Valle, URL Address: [facility] [address], [place] [phone] When: Unknown [facility] 10-14-2024 NotePatient Education Infectious Disease Prostatitis Prostatitis [...] these instructions at home: Medicines ? Take dfet-zmk-qgwyrmb and prescription medicines only as told by [...] Where to find more information ? National [place] of Diabetes and Digestive a (more content not included)... [facility]04-05-2024 Hospital Discharge instructions Patient Education 12/24/2023 13:03:55 [...] urethra. Follow these instructions at home: Take yyvb-wzb-evlpbfj and prescription medicines only as told by [...] provider. Document Revised: 03/25/2022 Document Reviewed: 03/25/2022 OpenVPN Patient Education 2022 [employer]il. Follow Up Care 12/02/2023 14:22:38 With:MARIAN GLEASON, Ti Valle, URL Address: [address] [place], [place] [id number]- When: Unknown [facility] 09-11-2023 Hospital Discharge instructions Patient Education 05/31/2023 [...] Follow these instructions at home: Medicines Take htev-rol-bwupamk and prescription medicines only as told by [...] important. Where to find more information National [place] of Diabetes and Digestive and Kidney Diseases: [...] depends on the type of prostatitis. Take qvfm-rwj-bazajre and prescription medicines only as told by [...] provider. Document Revised: 10/11/2020 Document Reviewed: 10/11/2020 [employer] Patient Education 2022 Bettymovil. Follow Up Care 03/15/2023 16:02:27 With:MARIAN GLEASON, Ti Valle, URL Address: [facility] [address], [place] [phone] When:Within 6 Month(s) Comments:PSA [facility] [place] 06-26-2023 Hospital Discharge instructions Patient [...] treatment? Where to find more information The [place] Cancer Society: www.cancer.org [place] U[employer] Association: www.auanet.org Contact a health care [...] provider. Document Revised: 03/02/2022 Document Reviewed: 03/02/2022 OpenVPN Patient Education 2022 [employer]movil. Follow Up Care 12/29/2021 10:29:34 With:Ti MAC MD, URL Address: [facility] [address], [place] [address]- When: Unknown [facility] evaluation + Plan note Future Appointments Appointment Date:05/31/2023 03:30:00 PM Scheduled Provider:Ti MAC MD Location:[facility] Appointment Type:URO Office Visit Diagnostic Tests Pending * PSA Free & Total 03/15/23 [facility] evaluation + Plan note Future Appointments Appointment Date:12/06/2023 03:00:00 PM Scheduled Provider:Ti MAC MD Location:[facility] Appointment Type:URO Office Visit Diagnostic Tests Pending * PSA Total 05/31/23 [facility] evaluation + Plan note Future Appointments Appointment Date:12/24/2023 11:00:00 AM Scheduled Provider:Ti MAC MD Location:[facility] Appointment Type:URO Office Visit Appointment Date:01/17/2024 05:00:00 PM Scheduled Provider:Nehemiah Moffett MD Location:[facility] Appointment Type: Open Diagnostic Tests Pending * Reference Lab Notification 12/17/23 Future Scheduled Tests Laboratory* PSA Screen, Total 12/13/23 * CBC w/ Auto Diff 12/13/23 * Comprehensive Metabolic Panel 12/13/23 * Lipid Panel 12/13/23 Radiology* CT Chest, Low Dose [facility] App[facility]ments Appointment Date:01/17/2024 05:00:00 PM Scheduled Provider:Nehemiah Moffett MD Location:[facility] Appointment Type:FM Open Appointment Date:07/03/2024 03:00:00 PM Scheduled Provider:Ti MAC MD Location:[facility] Appointment Type:URO Office Visit Diagnostic Tests Pending * PSA Total 04/20/24 Future Scheduled Tests Radiology* CT Chest, Low Dose Screening 12/13/23 [facility] evaluation + Plan note Future Appointments Appointment Date:07/17/2024 05:45:00 PM Scheduled Provider:Nehemiah Moffett MD Location:[facility] Appointment Type: Open Future Scheduled Tests Radiology* US Abdominal Aorta screening for AAA 01/17/24 * CT Chest, Low Dose Screening 12/13/23 * CT Chest, Low Dose Screening 01/17/24 [facility] evaluation + Plan note Future Appointments Appointment Date:11/03/2024 09:15:00 AM Scheduled Provider:Ti MAC MD Location:[facility] Appointment Type:URO Office Visit Appointment Date:01/15/2025 05:45:00 PM Scheduled Provider:Nehemiah Moffett MD Location:[facility] Appointment Type:FM Preventative Visit Future Scheduled Tests Radiology* US Abdominal Aorta screening for AAA 01/17/24 * CT Chest, Low Dose Screening 12/13/23 * CT Chest, Low Dose Screening 01/17/24 [facility] evaluation + Plan note Future Appointments Appointment Date:01/15/2025 05:45:00 PM Scheduled Provider:Nehemiah Moffett MD Location:[facility] Appointment Type:FM Preventative Visit Appointment Date:02/05/2025 02:45:00 PM Scheduled Provider:Ti MAC MD Location:[facility] Appointment Type:URO Office Visit Future Scheduled Tests Radiology* US Abdominal Aorta screening for AAA 01/17/24 * CT Chest, Low Dose Screening 12/13/23 * CT Chest, Low Dose Screening 01/17/24 [facility] evaluation + Plan note Future Appointments Appointment Date:01/15/2025 05:45:00 PM Scheduled Provider:Nehemiah Moffett MD Location:[facility] Appointment Type: Preventative Visit Appointment Date:02/05/2025 02:45:00 PM Scheduled Provider:Ti MAC MD Location:[facility] Appointment Type:URO Office Visit Diagnostic Tests Pending * Urine Culture 11/13/24 Future Scheduled Tests Radiology* US Abdominal Aorta screening for AAA 01/17/24 * CT Chest, Low Dose Screening 12/13/23 * CT Chest, Low Dose Screening 01/17/24 [facility] Evaluation + Plan note Future Appointments Appointment Date:02/05/2025 02:45:00 PM Scheduled Provider:Ti MAC MD Location:[facility] Appointment Type:URO Office Visit Appointment Date:07/16/2025 05:00:00 PM Scheduled Provider:Nehemiah Moffett MD Location:[facility] Appointment Type: Open Diagnostic Tests Pending * CBC w/ Auto Diff 01/15/25 * Comprehensive Metabolic Panel 01/15/25 * Lipid Panel 01/15/25 Future Scheduled Tests Radiology* US Abdominal Aorta screening for AAA 01/17/24 * CT Chest, Low Dose Screening 01/17/24 * CT Chest, Low Dose Screening 01/15/25 [facility] evaluation + Plan note Future Appointments Appointment Date:07/16/2025 05:00:00 PM Scheduled Provider:Nehemiah Moffett MD Location:[facility] Appointment Type:FM Open Appointment Date:09/03/2025 03:00:00 PM Scheduled Provider:Ti MAC MD Location:[facility] Appointment Type:URO Office Visit Future Scheduled Tests Radiology* CT Chest, Low Dose Screening 01/16/25 [facility] evaluation + Plan note Future Appointments Appointment Date:07/16/2025 05:00:00 PM Scheduled Provider:Nehemiah Moffett MD Location:[facility] Appointment Type: Open Appointment Date:09/03/2025 03:00:00 PM Scheduled Provider:Ti MAC MD Location:[facility] Appointment Type:URO Office Visit Diagnostic Tests Pending * PSA Total 02/26/25 Future Scheduled Tests Radiology* CT Chest, Low Dose Screening 01/16/25 [facility] evaluation noteNo assessment information available [facility] Work Phone: Hospital course Narrative No data available for this section [facility] Hospital Discharge instructions No data available for this section [facility] No data available for this section [...] section and content) DATE CREATED AUTHOR 12/03/2021 [facility] DATE CREATED AUTHOR AUTHOR'S ORGANIZ ATION 12/18/2023 [facility] DATE CREATED AUTHOR AUTHOR'S ORGANIZ ATION 11/05/2024 [facility] DATE CREATED AUTHOR AUTHOR'S ORGANIZ ATION 11/08/[address] [facility] DATE CREATED AUTHOR AUTHOR'S ORGANIZ ATION 11/17/2024 [facility] DATE CREATED AUTHOR AUTHOR'S ORGANIZ ATION 01/18/2025 [facility] DATE CREATED AUTHOR AUTHOR'S ORGANIZ ATION 02/27/2025 [facility] DATE CREATED AUTHOR AUTHOR'S ORGANIZ ATION 07/12/2025 [facility] DATE CREATED AUTHOR AUTHOR'S ORGANIZ ATION 07/21/2025 [facility] Patient Care team informatio n (unrecognized section and content) Personnel Name: Nehemiah Moffett MD Address: [address] [place] [address] Eye Team Status: Active Member Role Status Dates Tamia Jaramillo MD Primary Care Provider Active Team Status: Inactive Member Role Status Dates Tamia Jaramillo MD Primary Care Provider Active S tart: October 26, 2024 End: October 26, 2024PaRegino Velazquez ProviderActiveStart: October 26, 2024 End: October 26, 2024 Personnel Name: Nehemiah Moffett MD Address: Address: [facility] Goals (unrecognized section and content) Goals [...] BE BASED ON THE PRIMARY CLINICAL RECORDS. [facility]. provides no warranty or guarantee of the accuracy or completeness of information in this document.
== END 2025-08-30 07:21 | disposition home or self-care (01) ==
LOC: PST 07:20
PROVIDERS: Visit Provider Surgery
DX: Z01.818 Encounter for other preprocedural examination (principal); Z12.11 Encounter for screening for malignant neoplasm of colon; Z86.0100 Personal history of colon polyps, unspecified; K21.9 Gastro-esophageal reflux disease without esophagitis

== ENCOUNTER 2025-09-05 08:27 | Day surgery (SDC) | payer OTHER, SELFPAY ==
[2025-09-05 08:30] VITALS: BP 134/72; PULSE 76; TEMP 36.1; O2SAT 96; BMI 25.0
--- OUTSIDE RECORDS SUMMARY | 2025-09-05 08:30 | XMS_ITS | Clinical Summary ---
Demographics Address [facility] [address] [place] [address] Home Phone Mobile Phone Email Address Preferred Language ENG Marital Status Taoism Affiliation Unknown Race White Ethnic Group Not or Lati no Author Organization [facility] Address [address] [place] [id number] Care Team Providers Care Caul Fat Puller Name Role Phone Tamia Jaramillo MD Primary Care Provider [phone] Allergies No known active allergies Medications MedicationSigDispense QuantityRefillsLast FilledStart DateEnd DateStatus bisoprolol-hydrochlorothiazide (ZIAC) 10-6.25 mg per tablet 08/19/2017Active tamsulosin ER (FLOMAX) 0.4 mg cap Take 0.4 mg by mouth once daily.11004/30/2019Active Active Problems ProblemNoted DateDiagnosed DateCorneal foreign body, right, initial encounter 12/04/2021Left corneal /04/2021orneal scar, right eye04/23/2021 Pterygium of right eye04/23/2021ssential menkwpabdqdi22/26/2019Foreign body of left sjkffw7005/10/2019Amblyopia, left eye05/02/2018Progressive peripheral pterygium of right eye05/02/2018 Social History Tobacco UseTypesPacks/DayYears UsedDateSmoking Tobacco: Some DaysCigarettes Smokeless Tobacco: NeverAlcohol UseStandard Drinks/WeekCommentsNo0 (1 standard drink = 0.6 oz pure alcohol)Area Deprivation IndexAnswerDate RecordedNational Score (1-100), lower number is lower riskNot on file04/23/2021tate Score (1- 10), lower number is lower riskNot on file1Data from: https://www.neighborhoodatlas.medicine.[facility].edu/. Last address used for calculationNot on file04/23/2021ex and Gender InformationValueDate RecordedSex Assigned at BirthNot on fileLegal UybZoqy11/20/2017 10:45 AM ESTGender Identity Not on fileSexual OrientationNot on file Last Filed Vital Signs Vital SignReadingTime TakenCommentsBlood Jstajehc692/7208 11:40 AM EDT Xgjxb2277 11:40 AM EDTTemperature--Respiratory Rate--Oxygen Saturation-- Inhaled Oxygen Concentration--Weight--Height--Body Mass Index-- Plan of Treatment Health MaintenanceDue DateLast DoneCommentsAbdominal Aortic Aneurysm Screening 1960Anxiety Getnqimao41/01/1978Depression Wjvszcwqj43/01/1978HIV Screening 01/18/1978Hepatitis C Fmkeybext40/01/1978DTaP,Tdap,Td Vaccine (1 - Tdap) 01/18/1979Lipid Xjafgspun63/01/1995CT Inasaqriuhte86/01/2005Cologuard (FIT-DNA) 01/18/20055649Rlxyullriab60/01/2005Colorectal Cancer Jagxbeymh87/01/2005Diabetes Cudepmvlo53/01/2005Fecal Occult Blood01/18/2005Prostate Cancer Screening Grmzgplxek52/01/9445Nglxmdwwnyebz43/01/2005Pneumococcal Vaccine: 50+ (1 of 1 - PCV)01/18/2010Shingrix Vaccine (1 of 2)01/18/2010dvance Directive Discussion 01/18/2025ovid-19 Vaccine (3 - 2024- season)/, 02/15/2021 Influenza Vaccine (#1)2025RSV Vaccine (1 - 1-dose 75+ series)01/18/2035 Insurance * Guarantor: Valdemar Prado TypeRelation to PatientDate of BirthPhone Billing AddressPersonal/BpmmgiMdwq1960 [address] [place] [address] * Guarantor: Valdemar Prado TypeRelation to PatientDate of BirthPhone Billing AddressWorkers J[address] [place] [address] * Guarantor: Valdemar Pradoakash TypeRelation to PatientDate of BirthPhone Billing AddressWorkers EnrnLbkm[address] [place] [address] Care Teams Team MemberRelationshipSpecialtyStart DateEnd Tamia Dotson MD [address] [place] [address] [facility] - [facility] Uohpywdl27/20/17
--- NOTE | 2025-09-05 09:30 | OP_ITS ---
OPERATION DATE: ??09/05/2025 ? PREOPERATIVE DIAGNOSIS:? Personal history of Acosta?s esophagus and gastroesophageal reflux disease. ? POSTOPERATIVE DIAGNOSIS:? Small hiatal hernia. ? PROCEDURE:? EGD. ? SURGEON:? Willis Ervin M.D. ? ANESTHESIA:? Monitored anesthesia care. ? ESTIMATED BLOOD LOSS:? Zero. ? INDICATIONS AND CONSENT:? Patient is a 65-year-old male with history of chronic GERD.? He did have an EGD in 2014 that revealed a short segment of Acosta?s esophagus without dysplasia.? Currently denies GERD symptoms, but presents for follow up due to the Acosta?s esophagus.? Indications, risks, benefits, alternatives of proceeding with EGD were explained extensively to the patient, including the risks of bleeding, aspiration, esophageal/gastric or duodenal perforation or anesthetic complications.? All of his questions were answered.? Informed consent was obtained. ? PROCEDURE:? Patient was brought to the operating room, placed in the left lateral decubitus position.? Monitored anesthesia care was provided.? Bite block was placed in the patient?s mouth.? Scope was inserted into the oropharynx.? Under direct visualization, it was advanced into the esophagus, past the cricopharyngeus, down into the stomach.? The stomach was insufflated with air.? The pylorus was traversed down to the descending portion of the duodenum.? There was no evidence of duodenitis or ulceration.? There was no scarring within the pyloric channel.?? Scope was pulled back into the stomach and retroflexed.? There was noted to be a small, sliding type hiatal hernia.? No gastric mucosal abnormalities.? The GE junction was noted at approximately 40 cm.? There was an irregular Z-line, but no evidence of Acosta?s changes.? No ulceration.? The remainder of the esophagus was unremarkable.? The scope was then withdrawn.? Patient tolerated procedure well, was sent to recovery room in good condition. ? Please see the separate dictated report for the colonoscopy. ? CC:? Breezy Ayon
--- NOTE | 2025-09-05 09:30 | OP_ITS ---
OPERATION DATE: ??09/05/2025 ? PREOPERATIVE DIAGNOSIS:? Colorectal screening, as well as history of gastroesophageal reflux disease and short segment Acosta?s esophagus. ? POSTOPERATIVE DIAGNOSIS:? Small hiatal hernia, 2 mm descending and sigmoid colon polyps. ? PROCEDURE:? EGD and colonoscopy to cecum with cold biopsy forceps polypectomy x2. ? SURGEON:? Wlilis Ervin M.D. ? ANESTHESIA:? Monitored anesthesia care. ? ESTIMATED BLOOD LOSS:? Less than 1 mL. ? INDICATIONS AND CONSENT:? Patient is a 65-year-old male who presents for colorectal screening.? Last colonoscopy was in 2014 with removal of a small colon polyp.? He also had an EGD at that time, which revealed a short segment of Acosta?s esophagus.? Indications, risks, benefits, alternatives of proceeding with EGD and colonoscopy were explained extensively to the patient, including the risks of bleeding, aspiration, esophageal/gastric/duodenal or colonic perforation or anesthetic complications.? All of his questions were answered.? Informed consent was obtained. ? PROCEDURE:? Patient brought to the operating room, placed in the left lateral decubitus position.? Monitored anesthesia care was provided.? Bite block was placed in the patient?s mouth.? Scope was inserted into the oropharynx.? Under direct visualization, it was advanced into the esophagus, past the cricopharyngeus, down into the stomach.? The stomach was insufflated with air.? The pylorus was traversed down to the descending portion of the duodenum. There was no evidence of duodenitis or ulceration.? There was no scarring within the pyloric channel.? The scope was pulled back into the stomach and retroflexed.? There was noted to be a small, sliding type hiatal hernia.? The GE junction was noted at approximately 40 cm.? There was an irregular Z-line but no evidence of Acosta?s esophagus or ulcerations.? The remainder of the esophagus was unremarkable.? The scope was then withdrawn.? ? Patient was then positioned for colonoscopy.? Rectal exam was performed, which showed no masses or blood.? The scope was then inserted into the anal canal.? Under direct visualization, it was advanced.? It was advanced to the cecum where cecal markings were clearly identified.? There was noted to be a good prep.? Upon withdrawal of the scope, mucosal surfaces were carefully examined.? There were no mass lesions or polyps noted.? No inflammatory changes or ulcerations.? There was mild sigmoid diverticulosis.? Within the descending colon, there was a 2 mm sessile polyp that was removed with cold biopsy forceps with good hemostasis.? There was also additional distal sigmoid polyp that was 2 mm, also removed with cold biopsy forceps with good hemostasis.? ?The scope was retroflexed in the anal canal.? There was no significant hemorrhoidal disease.? The scope was then withdrawn.? The patient tolerated procedure well, was sent to recovery room in good condition. ? Follow up screening colonoscopy will depend on the pathology, but may be in five years. ? CC:? Breezy Ayon
[2025-09-05 10:34] VITALS: BP 89/40; PULSE 65; TEMP 36.4; O2SAT 97
[2025-09-05 10:50] VITALS: BP 99/60; PULSE 74; O2SAT 98
[2025-09-05 11:05] VITALS: BP 122/80; PULSE 76; O2SAT 99
== END 2025-09-05 11:15 | disposition home or self-care (01) ==
LOC: SURGOUT 08:28
PROVIDERS: Visit Provider Surgery
PROC: (CPT 813; principal; 2025-09-05 09:30)
DX: Z12.11 Encounter for screening for malignant neoplasm of colon (principal); K21.9 Gastro-esophageal reflux disease without esophagitis; K44.9 Diaphragmatic hernia without obstruction or gangrene; K57.30 Diverticulosis of large intestine without perforation or abscess without bleeding; K63.5 Polyp of colon; D12.4 Benign neoplasm of descending colon; J44.9 Chronic obstructive pulmonary disease, unspecified; I10 Essential (primary) hypertension; E78.5 Hyperlipidemia, unspecified; Z86.0101 Personal history of adenomatous and serrated colon polyps; Z87.19 Personal history of other diseases of the digestive system; F41.9 Anxiety disorder, unspecified; F32.A Depression, unspecified
CPT/HCPCS: 43235; 45380; 88305; J2003; J2371; J2704